=== PATIENT | female | born 1955 | race Caucasian/White ===

== ENCOUNTER 2020-03-15 12:34 | Outpatient (RCR) | payer MEDICARE, MEDICAID, SELFPAY ==
--- NOTE | 2020-03-15 14:13 | PTOPEVAL ---
PHYSICAL THERAPY EVALUATION Thank you for referring Juanis Jim to [facility]. She was seen this date for her dizziness. She had a + L Arti Hallpike test which corrected well with L Eply manuever. Handouts were given for next 24 hour precautions as well as self correction L Eply manuever. Will follow up via phone next week to see how she is doing. If further treatment is needed, will formulate a Plan of Care - which would be forwarded to you. I agree with Payton's evaluation as well as about outlined followup.. Referring Physician Date Admitting Provider: Attending Provider: Analy Higgins NP Referring Provider: *PT Outpatient Evaluation Start: 03/15/20 13:08 Freq: Status: Active Protocol: Document 03/15/20 13:00 BARBARA (Rec: 03/15/20 14:13 BARBARA [id number]) Therapy Assessment Status Assessment Status Assessment Status Evaluation Outpatient Past Medical History Past Medical History Source of Past Medical History Patient Neurological History Hx Neurological Disorders No Significant History Cardiovascular History Hx Cardiac Disorders No Significant History Respiratory History Hx Chronic Obstructive Pulmonary Disease Yes: home 02 2-3L (COPD) Hx Sleep Apnea Yes: TRILOGY VENTILATOR @ WITH 2L O2 BLEED IN Hx Other Respiratory Disorders Yes: ELEVATED CO2 Gastrointestinal History Hx Cholecystectomy Yes Hx Other Gastrointestinal Disorders Yes: CONSTIPATION X 7 WEEKS, NAUSEA Genitourinary History Hx Other Genitourinary Disorders Yes: BLADDER TIE UP Musculoskeletal History Hx Fractures Yes: R hallux, R 5th metacarpal Hematological History Hx Hematological Disorders No Significant History Endocrine History Hx Other Endocrine Disorders Yes: SPOT ON THYROID HEENT History Hx HEENT Disorders No Significant History Integumentary History Hx Shingles Yes Reproductive History Hx Reproductive Disorders No Significant History Psychosocial History Hx Anxiety Yes Pain History History of Any Previous or Ongoing No Significant History Instance of Pain Anesthesia History Hx Anesthesia Reactions No Significant History Evaluation Information Problem Diagnosis dizziness and giddiness Onset middle to end of January Additional Evaluation Detail previous episode ~ 4 years ago Subjective Information Washing hair in sink, at times Query Text:As Reported By Patient/ she feels likes she has water Family in her ear - this time didn't go away. Rolling over in bed (usually from L side to R side) will have the dizziness
--- NOTE | 2020-03-22 17:08 | PCPTNOTE ---
Follow up phone call made, Payton continues to no longer have any dizziness. Will d/c chart at this time.
== END 2020-06-13 23:59 | disposition home or self-care (01) ==
LOC: ANHPT 12:34
PROVIDERS: PCP Internal Medicine; Visit Provider Nurse Practitioner
DX: R42 Dizziness and giddiness (principal)
CPT/HCPCS: 97161

== ENCOUNTER 2020-06-21 10:07 | Outpatient (CLI) | payer MEDICARE, MEDICAID, SELFPAY ==
--- NOTE | ~2020-06-21 | CT_ITS ---
EXAMINATION: CT lung screening DATE: 06/21/2020 10:31 INDICATION: Personal history of tobacco dependence, tobacco use, prior smoker with 30 pack year histo ry TECHNIQUE: Computed tomography (CT) of the chest was performed without intravenous contrast. The dose -length product (DLP) was 56.31 mGy-cm. Automated exposure control and iterative reconstruction techn [place] were employed. COMPARISON: 10/14/2018 FINDINGS: There is moderate emphysema. There is a stable 4 mm nodule of the right upper lobe on image 39. There is a 4 mm nodule of the right lower lobe on image 59. The lungs are free of focal airspace opacities. There is no pleural effusion or pneumothorax. No pathologically enlarged thoracic lymph n odes are identified. The heart size is normal. . There is mild thoracic spondylosis. IMPRESSION: 1. Lung-RADS category 2: Benign appearance or behavior. Continue annual screening with noncontrast lo w-dose chest CT in 12 months. Reviewed, dictated and finalized at location B. IMPRESSION: 1. Lung-RADS category 2: Benign appearance or behavior. Continue annual screeni ng with noncontrast low-dose chest CT in 12 months.
[2020-06-21 11:18] LABS: Hemoglobin A1C 5.3 % (<5.7)
== END 2020-06-21 10:08 | disposition home or self-care (01) ==
PROVIDERS: PCP Internal Medicine; Visit Provider Internal Medicine Critical Care Medicine
DX: Z12.2 Encounter for screening for malignant neoplasm of respiratory organs (principal); Z87.891 Personal history of nicotine dependence; R73.9 Hyperglycemia, unspecified
CPT/HCPCS: 36415; 83036; G0297

== ENCOUNTER 2020-12-22 11:34 | Emergency (ER) | payer MEDICARE, MEDICAID, SELFPAY ==
[2020-12-22] VITALS (19 sets, daily range): BP systolic 127–135; BP diastolic 74–87; PULSE 93–113; RESP 12–28; TEMP 36.6; O2SAT 94–100
--- NOTE | ~2020-12-22 | XR_ITS ---
EXAMINATION: XR chest 1V portable DATE: 12/22/2020 12:26 INDICATION: COPD presenting with shortness of breath TECHNIQUE: frontal view of the chest was obtained. COMPARISON: Chest radiograph dated 09/03/[address] dated 06/21/2020 FINDINGS: Hyperexpansion of lungs with flattening of the diaphragm and increased lucency and architectural dist ortion with lower lung predominance consistent with moderate emphysema but appreciated on prior CT . No focal airspace opacities, pulmonary edema, pleural effusion or pneumothorax. The cardiomediastinal silhouette is normal. Cholecystectomy clips in the upper abdomen. IMPRESSION: 1. Emphysema. No acute cardiopulmonary disease. Reviewed, dictated and finalized at location B. D WASTE COLLECTOR
--- NOTE | ~2020-12-22 | CT_ITS ---
EXAMINATION: CT brain wo con DATE: 12/22/2020 14:30 INDICATION: Headache and dizziness TECHNIQUE: Computed tomography (CT) of the head was performed without intravenous contrast. Sagittal and coronal reconstructions were performed. The mA was adjusted according to patient size. Iterative reconstruction technique was employed. The dose-length product was 605.33 mGy-cm. COMPARISON: None FINDINGS: No acute intracranial hemorrhage, acute infarction or abnormal extra axial fluid collection. There is mild scattered white matter hypoattenuation consistent with chronic small vessel ischemic disease. Ventricles are normal and symmetric. No mass/mass effect. Changes of left intraocular lens replacemen t. The orbits, paranasal sinuses and mastoid air cells are normal. IMPRESSION: 1. No acute intracranial process. 2. Mild scattered white matter hypoattenuation consistent with chronic small vessel ischemic disease. Reviewed, dictated and finalized at location B. ING SUPERVISOR IMPRESSION: 1. No acute intracranial process. 2. Mild scattered white matter hypoattenuation consistent with chronic small ve ssel ischemic disease.
--- NOTE | 2020-12-22 11:38 | ECG_ITS ---
Measurements Intervals [place] Rate: 103 P: 76 [place]: 128 QRS: 47 QRSD: 89 T: 44 QT: 343 QTc: 449 Interpretive Statements SINUS TACHYCARDIA INCOMPLETE RIGHT BUNDLE BRANCH BLOCK BASELINE ARTIFACT- I, II, III, AVR, AVL, AVF, V1-V6 BORDERLINE ECG Electronically Signed On 12-22-2020 12:41:34 VETERINARY TECHNICIAN by Joe Linares D.O.
[2020-12-22 12:04] LABS: Basophils Absolute Auto 0.1 K/mm3 (0.0-0.1); Basophils Percent Auto 0.5 % (0.2-1.2); Eosinophils Absolute Auto 0.2 K/mm3 (0-0.3); Eosinophils Percent Auto 2.2 % (0-4.4); Hemoglobin 12.7 g/dL (12.0-15.0); Immature Granulocyte Absolute 0.02 K/mm3 (0.00-0.031); Immature Granulocyte Percent A 0.2 % (0-0.5); Lymphocytes Absolute Auto 1.79 K/mm3 (0.9-3.2); Lymphocytes Percent Auto 19.5 % (18.3-44.2); Mean Corpuscular HGB Conc 33.4 g/dl (32-36); Mean Corpuscular Hemoglobin 31.6 pg (26-34); Mean Corpuscular Volume 94.5 fl (80-100); Mean Platelet Volume 8.8 fl (7.4-10.4); Monocytes Absolute Auto 0.9 K/mm3 (0.1-0.6); Monocytes Percent Auto 9.8 % (2.6-8.5); Neutrophils Absolute Auto 6.2 K/mm3 (1.3-6.7); Neutrophils Percent Auto 67.8 % (45.5-73.1); Platelet Count Result 264 k/mm3 (150-375); Red Blood Count 4.02 M/mm3 (4.2-5.4); Red Cell Distribution Width 11.7 % (11.5-14.5); White Blood Count 9.2 K/mm3 (4.5-10.0)
[2020-12-22] MEDS: ONDANSETRON INJ 4 MG/2 ML VIAL IV PUSH (12:05)
[2020-12-22 12:16] LABS: Anion Gap 3 mmol/L (8-16); Blood Urea Nitrogen 24 mg/dL (7-17); Carbon Dioxide 34 mmol/L (22-30); Chloride 96 mmol/L (98-107); Estimated CRCL calculation 47 ml/min; Estimated Glomerular Filt Rate > 60; Glucose 103 mg/dL (65-105); Potassium 4.4 mmol/L (3.4-5.0); Sodium 133 mmol/L (137-145)
[2020-12-22] MEDS: MECLIZINE HCL 25 MG TABLET PO (12:45)
--- NOTE | 2020-12-22 12:58 | ED.SOB ---
HPI - SOB/Dyspnea General Chief Complaint: Shortness of Breath/Dyspnea Stated Complaint: SOB Time Seen by Provider: 12/22/20 11:40 History of Present Illness HPI Narrative: Patient is a 65-year-old female who presents ER with nausea and vomiting. No stomach pain but does feel dizzy in her stomach. . Patient reports symptoms worsen if she lays back. Patient wears 2 L nasal cannula baseline for her COPD. No chest pain/chest pressure. No new shortness of breath or productive cough. Has not had similar symptoms previously. Patient also reports she has been having headache for the last 3 days. No trauma. No focal weakness in arm or leg. Related Data Home Medications Medication Instructions Recorded Confirmed Vitamin D3 2,000 mg PO DAILY 10/13/19 12/22/20 diphenhydramine-acetaminophen 1 tablet PO HS PRN 10/13/19 12/22/20 [Tylenol PM Extra Strength] mecobalamin (vitamin B12) 1,000 mcg PO DAILY 10/13/19 12/22/20 Allergies Allergy/AdvReac Type Severity Reaction Status Date / Time Iodinated Contrast Media Allergy Severe RASH AND Verified 12/14/20 10:59 SEVERE ITCHING aspirin AdvReac Intermediate Abdominal Verified 09/20/20 10:31 Pain Review of Systems Review of Systems: All systems reviewed & are unremarkable except as noted in HPI and below Constitutional: Constitutional: Denies chills, Denies fever(s) and Reports weakness ENT: Denies nasal congestion Cardiovascular: Cardiovascular: Denies chest pain, Denies rapid heart rate and Denies radiating jaw, neck or arm pain Respiratory: Respiratory: Denies cough, Denies dyspnea and Denies wheezing Gastrointestinal: Gastrointestinal: Denies abdominal pain, Denies diarrhea, Reports nausea and Denies vomiting Neurologic: Reports dizziness, Denies syncope, Reports headache(s), Denies focal weakness and Denies numbness [facility] Past Medical History Medical History (Updated 12/22/20 @ 15:19 by Viktor Mcdaniels MD) Alternating constipation and diarrhea Anemia Anxiety Chronic anemia COPD (chronic obstructive pulmonary disease) GERD (gastroesophageal reflux disease) Irritable bowel syndrome with constipation Metacarpal bone fracture Nausea Osteoporosis Tobacco abuse Vitamin B 12 deficiency Vitamin D deficiency Surgical History Surgical History History of bladder surgery History of breast surgery History of cholecystectomy Family History Family History Father Family history of cardiovascular disease Acute myocardial infarction Hypertension Family history of type 2 diabetes mellitus Mother Hypertension Family history of thyroid disease Family history of multiple sclerosis Other Arthritis Diabetes mellitus Heart disease Neuropathy Skin cancer Social History Social History Smoking status: Former smoker Tobacco type: cigarettes Second hand tobacco smoke exposure: No Smoking end date: 11/25/13 Alcohol intake: current Substance use: unknown Gender identity (if verbalized by the patient): Female Spiritual care concerns: No Exam Narrative: Exam Narrative: GENERAL: Chronically ill-appearing, well-nourished, and in no acute distress. HEAD: Normocephalic, atraumatic. ENT: Mucous membranes moist. TMs normal. CHEST: Clear to auscultation. No respiratory distress. HEART: Tachycardic and regular. Normal peripheral pulses. ABDOMEN: Soft, nontender, nondistended. EXTREMITIES: Normal range of motion. No edema. SKIN: Warm, dry, no rash. NEURO: Alert and oriented x3. Course Course Emergency Course: Patient has received antiemetics as well as meclizine. Nausea is improved and she has been able to ambulate without issue. Lab work without leukocytosis or left shift. Renal function normal. Patient hydrated as BUN is slightly elevated. CT of the head and josiah
[2020-12-22] MEDS: KETOROLAC 15 MG/ML VIAL (*BKC) IV PUSH (13:45)
== END 2020-12-22 15:39 | disposition home or self-care (01) ==
PROVIDERS: Emergency Provider Emergency Medicine; PCP Internal Medicine
DX: R42 Dizziness and giddiness (principal); R51.9 Headache, unspecified; J43.9 Emphysema, unspecified; D64.9 Anemia, unspecified; K21.9 Gastro-esophageal reflux disease without esophagitis; K58.1 Irritable bowel syndrome with constipation; M81.0 Age-related osteoporosis without current pathological fracture; E53.8 Deficiency of other specified B group vitamins; E55.9 Vitamin D deficiency, unspecified; Z87.891 Personal history of nicotine dependence; R00.0 Tachycardia, unspecified; I45.10 Unspecified right bundle-branch block; Z99.81 Dependence on supplemental oxygen
CPT/HCPCS: 36415; 70450; 71045; 80048; 85025; 93005; 96374; 96375; 99284; A9270; J1885; J2405

== ENCOUNTER 2021-07-17 11:00 | Outpatient (RCR) | payer MEDICARE, MEDICAID, SELFPAY ==
--- NOTE | 2021-05-19 16:50 | PTOPEVAL ---
PHYSICAL THERAPY EVALUATION Thank you for referring Juanis Jim to [facility].? Aide was evaluated for the dx of left shoulder pain/impingement. The patient is scheduled to be seen for therapy? 2 x/week for 4 weeks. Please review, sign, date and return this plan of care RICHMOND. I agree with and certify that the following plan of care is medically necessary. Referring Physician Date Attending Provider: Jada Castellano NP *PT Outpatient Evaluation Start: 05/19/21 12:41 Freq: Status: Active Protocol: Document 05/19/21 12:41 [facility] (Rec: 05/19/21 13:30 [facility] [id number]) Therapy Assessment Status Assessment Status Assessment Status Evaluation Evaluation Information Problem Diagnosis left shoulder impingement Onset 2 months ago Cause no injury Additional Evaluation Detail Patient reports having shoulder pain for 2 months, felt like she slept wrong but the pain didn't go away. The shoulder got worse and began having trouble lifting her arm. The patient sleeps left side due to breathing issues/ ventilator. The patient has been on O2 since 2013. The patient is I and likes to do yardwork, and does her housework. The patient is right hand dominant. Subjective Information The patient has limited and Query Text:As Reported By Patient/ modified ability for self care Family /combing her hair, working in her yard since recent onset of pain. Previous Treatments Previous Treatments For This Problem none for shoulder Pain Assessment Timing of Pain Assessment Timing of Pain Assessment Assessment Pain Scale Pain Scale Used Numeric (1 - 10) Self Report Pain Assessment Left Shoulder(s) Reported Pain Level 6 Pain Description Aching,Sharp Other Pain Description sharp pian with reach and with pressure Greatest Pain Intensity 10 Pain Aggravating Factors Exercise/Activity,Lifting, Palpation Pain Behaviors Guarding Pain Score Pain Score 6: Self Report Interventions Used Interventions Used By Clinicians Education,Electrical Stimulation,Heat Pain Relief Interventions Used By Inactivity/Rest Patient Upper Extremity Range of Motion Gene
--- NOTE | 2021-06-13 15:20 | PCPTNOTE ---
Patient called & cancelled scheduled appointment this date due to difficulty breathing.
--- NOTE | 2021-06-19 17:00 | PTOPEVAL ---
PHYSICAL THERAPY RE-EVALUATION Thank you for referring Juanis Jim to [facility].? Juanis was reassessed this date for the dx of left shoulder impingement. Goals are partially met. The patient is scheduled to be seen for therapy? 2 x/week for 4 more weeks. Please review, sign, date and return this plan of care RICHMOND. I agree with and certify that the following plan of care is medically necessary. Referring Physician Date Attending Provider: Jada Castellano NP *PT Outpatient Re-evaluation Start: 05/19/21 12:41 Freq: Status: Active Protocol: Document 06/19/21 12:26 MLV (Rec: 06/19/21 13:24 MLV [id number]) Therapy Assessment Status Assessment Status Assessment Status Progress Evaluation Information Problem Diagnosis left shoulder impingement Cause no injury Additional Evaluation Detail Patient reports improved ability to reach in front on a wall/closet. The patient can do better with her self care- applying deodorant and doing her hair. The patient reaches behind her back better for getting dressed. The pt. reports continued pain at the shoulder has declined overall and feels the therapy is helping get her better. Patient reports most intense pain is when reaching to opposite shoulder with pain occurring at the deltoid area (not the AC jt). Pain Assessment Timing of Pain Assessment Timing of Pain Assessment Assessment Pain Scale Pain Scale Used Numeric (1 - 10) Self Report Pain Assessment Left Shoulder(s) Reported Pain Level 0 Other Pain Description 5 with extensive reach activities; less frequent Pain Score Pain Score 0: Self Report Interventions Used Interventions Used By Clinicians Education,Exercise,Heat, Mobilization,Manual Therapy Techniques Pain Relief Interventions Used By Exercise,Heat,Inactivity/Rest, Patient Position Change Upper Extremity Range of Motion General Upper Extremity Range of Motion Gross Upper Extremity Range of Motion shoulder ROM; right flexion Comments 137', abduction 137', extension 78', ER 69', IR 61 left flexion 105', abduction 72', extension 73', ER 58',
--- NOTE | 2021-07-17 11:43 | PTOPEVAL ---
PHYSICAL THERAPY DISCHARGE Thank you for referring Juanis Jim to [facility].? The patient has completed her PT for the dx of left shoulder impingement with her most of her goals met. DC PT. Please review, sign, date and return this plan of care RICHMOND. I agree with and certify the following plan of care. Referring Physician Date Attending Provider: Jada Castellano NP *PT Outpatient Discharge Start: 05/19/21 12:41 Freq: Status: Active Protocol: Document 07/17/21 10:54 MLV (Rec: 07/17/21 11:30 MLV [id number]) Therapy Assessment Status Assessment Status Assessment Status Discharge Evaluation Information Problem Diagnosis left shoulder impingement Cause no injury Additional Evaluation Detail The patient reports using her heat and doing her exercises; reports the heat really helps. The patient reports about 80% improvement of use and decreased pain. The patient can reach better to do her hair and reach but still has minimal limit. The patient is also able to reach behind her back much better. The pt does not have a follow up with MD and is going to wait and see how far she can improve her arm on her own. Pain Assessment Timing of Pain Assessment Timing of Pain Assessment Assessment Pain Scale Pain Scale Used Numeric (1 - 10) Self Report Pain Assessment Left Shoulder(s) Reported Pain Level 0 Pain Frequency Acute,Chronic Other Pain Description 7 with activity but relieves as soon as she stops mvmt Pain Aggravating Factors Lifting Pain Behaviors None Pain Score Pain Score 0: Self Report Interventions Used Interventions Used By Clinicians Electrical Stimulation,Heat, Manual Therapy Techniques Pain Relief Interventions Used By Heat,Inactivity/Rest,Position Patient Change Upper Extremity Range of Motion General Upper Extremity Range of Motion Gross Upper Extremity Range of Motion shoulder ROM; right flexion Comments 137', abduction 137', extension 78', ER 69', IR 61 left flexion 112', abduction 78', extension 74', ER 76', IR 81' passive left arm elevation 98'
== END 2021-08-07 13:05 | disposition home or self-care (01) ==
LOC: ANHPT 11:00
PROVIDERS: PCP Internal Medicine; Visit Provider Nurse Practitioner
DX: M75.42 Impingement syndrome of left shoulder (principal)
CPT/HCPCS: 97014; 97110; 97140; 97162; G0283

== ENCOUNTER 2021-07-18 13:04 | Outpatient (CLI) | payer MEDICARE, MEDICAID, SELFPAY ==
--- NOTE | ~2021-07-18 | CT_ITS ---
EXAMINATION:CT lung screening DATE: 07/18/2021 13:43 INDICATION: Personal history of tobacco dependence. Smoker who quit 7 years ago with 30 pack year his tory. TECHNIQUE: Computed tomography (CT) of the chest was performed without intravenous contrast. Automate d exposure control and iterative reconstruction technique were employed. The dose-length product (DLP ) was 63.56 mGy-cm. COMPARISON: Chest CT 06/21/2020 FINDINGS: There is mild scarring in the lung apices and superior segment left lower lobe. There is mo derate emphysema. There is mild atelectasis bilaterally. There is a 2 mm nodule in right upper lobe. There are bilateral posterior diaphragmatic hernias containing fat. No pleural effusion. There is 11 mm nodule in right thyroid lobe, likely not clinically significant. The heart size is normal. No krysten cardial effusion. There are changes of cholecystectomy. There is severe cervical spondylosis and mild thoracic spondylosis. IMPRESSION: 1. Lung-RADS category 2: Benign appearance or behavior. Continue annual screening with noncontrast lo w-dose chest CT in 12 months. Reviewed, dictated and finalized at location A. IMPRESSION: 1. Lung-RADS category 2: Benign appearance or behavior. Continue annual screeni ng with noncontrast low-dose chest CT in 12 months.
== END 2021-07-18 13:05 | disposition home or self-care (01) ==
PROVIDERS: PCP Internal Medicine; Visit Provider Nurse Practitioner Family
DX: Z12.2 Encounter for screening for malignant neoplasm of respiratory organs (principal); Z87.891 Personal history of nicotine dependence
CPT/HCPCS: 71271

== ENCOUNTER 2021-09-08 13:25 | Observation (INO) | payer MEDICARE, MEDICAID, SELFPAY ==
[2021-09-08] VITALS (11 sets, daily range): BP systolic 117–137; BP diastolic 62–87; PULSE 74–102; RESP 12–24; TEMP 35.9–37.9; O2SAT 94–100; BMI 18.0
--- NOTE | ~2021-09-08 | CT_ITS ---
EXAMINATION: CTA chest PE protocol DATE: 09/10/2021 09:10 CDT INDICATION: Chest and left shoulder pain TECHNIQUE: Computed tomographic angiography (CTA) of the chest was performed with 100 mL Omnipaque-35 0 intravenous contrast. The dose-length product was 155.88 mGy-cm. Maximum intensity projection 3D-re constructions of the aorta and other arteries were constructed by the technologist on a separate work station. Automated exposure control and iterative reconstruction technique were employed. COMPARISON: CT dated 07/18/2021. FINDINGS: Dilated pulmonary arteries. Study is technically adequate without evidence for pulmonary em bolism. No significant pleural or pericardial effusion. Heart size normal. No thoracic lymphadenopath y. The upper abdomen is unremarkable. There is moderate emphysema. There is apical pleural thickening /scarring. No focal airspace consolidation. No pneumothorax. No endobronchial lesions. There is thora cic spondylosis. Bilateral posterior diaphragmatic hernias containing fat. IMPRESSION: 1. No acute cardiopulmonary disease. No evidence for pulmonary embolism. 2: Enlarged pulmonary arteries, consistent with pulmonary hypertension. 3: Emphysema. Reviewed, dictated and finalized at location A.
--- NOTE | ~2021-09-08 | CT_ITS ---
EXAMINATION: CT shoulder LT wo con DATE: 09/10/2021 08:54 INDICATION: Left shoulder pain. TECHNIQUE: Computed tomography (CT) of the left shoulder was performed without intravenous contrast. Automated exposure control and iterative reconstruction technique were employed. The dose-length prod uct was 85.50 mGy-cm. COMPARISON: None FINDINGS: Bone alignment is normal. No fracture. There is mild osteoarthritis of glenohumeral joint a nd severe osteoarthritis of acromioclavicular joint. There is no asymmetric fatty atrophy of the rota tor cuff muscle bellies. IMPRESSION: 1. Polyarticular osteoarthritis. Reviewed, dictated and finalized at location A.
--- NOTE | ~2021-09-08 | XR_ITS ---
EXAMINATION: XR chest 2V EXAM DATE: 09/08/2021 14:02 INDICATION: Shortness of breath and chest pain. COPD exacerbation. TECHNIQUE: Frontal and lateral projections of the chest obtained and reviewed. Comparison is made to prior examination from 12/22/2020. FINDINGS: The lungs are hyperinflated which can be seen with chronic obstructive pulmonary disease ( a clinical diagnosis of functional impairment), but is not diagnostic of it. The lungs are clear. T here are no pleural effusions. The cardiomediastinal silhouette is within normal limits. There is n o pneumothorax suspected. The bones and soft tissues are unremarkable. IMPRESSION: Severe hyperinflation. Reviewed, dictated and finalized at location B. IMPRESSION: Severe hyperinflation.
--- NOTE | ~2021-09-08 | CT_ITS ---
EXAMINATION: CT cervical spine wo con DATE: 09/10/2021 08:54 INDICATION: Neck pain TECHNIQUE: Computed tomography (CT) of the cervical spine was performed without intravenous contrast. The dose-length product was 89 mGy-cm. Automated exposure control and iterative reconstruction techn ique were employed. COMPARISON: None FINDINGS: Straightening of cervical lordosis. There is degenerative anterolisthesis at C2-3, C3-4 and C4-5 with retrolisthesis at C5-6. There is disc narrowing and endplate degenerative changes at C5-6 and C6-7. There is mild-moderate multilevel uncinate and facet hypertrophy. There is carotid atherosc lerosis. No acute fracture or traumatic malalignment. Odontoid process within normal limits. No signi ficant paraspinal soft tissue abnormality. No evidence for perched facet. IMPRESSION: 1. Moderate-severe cervical spondylosis. Reviewed, dictated and finalized at location A.
--- NOTE | ~2021-09-08 | NM_ITS ---
EXAMINATION: NM nemo stress w perfusion DATE: 09/11/2021 14:55 INDICATION: Atypical chest pain. TECHNIQUE: Rest images were obtained following intravenous administration of 9.4 mCi Tc99m tetrofosmi n (Myoview). The patient was infused intravenously with Lexiscan (regadenoson). Then, 29.4 mCi Tc99m tetrofosmin (Myoview) was administered intravenously, and stress images were obtained. Data was recon structed into short axis and horizontal and vertical long axis SPECT images. Gated SPECT images were also obtained. COMPARISON: Chest CT 09/10/2021 FINDINGS: There is no definite reversible or fixed perfusion abnormality to suggest ischemia or infar ction. There is no segmental wall motion abnormality. Left ventricular ejection fraction measures > 70%. IMPRESSION: 1. No definite ischemia or infarct. 2. Normal left ventricular ejection fraction measuring >70%. Reviewed, dictated and finalized at location A.
--- NOTE | ~2021-09-08 | NM_ITS ---
EXAMINATION: NM pulmonary perfusion DATE: 09/08/2021 15:06 INDICATION: Chest pain and shortness of breath. TECHNIQUE: 4.1 mCi Tc-99m MAA was administered intravenously for perfusion images. Scintigraphic yuki ges of the chest were obtained. COMPARISON: Chest 2 views 09/08/2021, ventilation perfusion scintigraphy 11/28/2016, chest CT 07/18/21 FINDINGS: Perfusion images show large defects in left upper lobe and left lower lobe and right lower lobe with stripe sign. There is a moderate-sized defect in right upper lobe. These findings are similar to that seen on the prior scintigraphy and correlate with severe emphysema by radiographs and CT. IMPRESSION: 1. Nondiagnostic (intermediate probability for pulmonary embolism). Reviewed, dictated and finalized at location A.
--- NOTE | ~2021-09-08 | US_ITS ---
EXAMINATION: US venous doppler [facility] EXAM DATE: 09/08/2021 15:59 INDICATION: Bilateral calf pain. TECHNIQUE: Multiple grayscale, color flow and Doppler images of the lower extremity deep venous syste ms bilaterally were obtained and reviewed. Comparison is made to prior examination from 10/14/2018. FINDINGS: Right side: The right common femoral, femoral and profunda veins demonstrate normal color flow, respi ratory variation, augmentation and compressibility. Compressibility, color flow confirmed within the right popliteal, posterior tibial, peroneal, and greater saphenous veins. Left side: The left common femoral, femoral and profunda veins demonstrate normal color flow, respira tory variation, augmentation and compressibility. Compressibility, color flow confirmed within the l eft popliteal, posterior tibial, peroneal, and greater saphenous veins. IMPRESSION: No lower extremity deep venous thrombosis bilaterally. Reviewed, dictated and finalized at location B.
--- NOTE | 2021-09-08 13:29 | ECG_ITS ---
Measurements Intervals [place] Rate: 97 P: 77 NE: 132 QRS: 65 QRSD: 87 T: 52 QT: 347 QTc: 441 Interpretive Statements SINUS RHYTHM INCOMPLETE RIGHT BUNDLE BRANCH BLOCK BASELINE ARTIFACT- I, II, III, AVR, AVL, AVF, V1-V6 BORDERLINE ECG Electronically Signed On 09-08-2021 14:11:51 CDT by Joe Linares D.O.
[2021-09-08 13:57] LABS: Basophils Absolute Auto 0.1 K/mm3 (0.0-0.1); Basophils Percent Auto 0.6 % (0.2-1.2); Eosinophils Absolute Auto 0.2 K/mm3 (0-0.3); Eosinophils Percent Auto 2.7 % (0-4.4); Hematocrit 40.7 % (37.0-47.0); Hemoglobin 13.2 g/dL (12.0-15.0); Immature Granulocyte Absolute 0.02 K/mm3 (0.00-0.031); Immature Granulocyte Percent A 0.3 % (0-0.5); Lymphocytes Absolute Auto 2.45 K/mm3 (0.9-3.2); Lymphocytes Percent Auto 30.9 % (18.3-44.2); Mean Corpuscular HGB Conc 32.4 g/dl (32-36); Mean Corpuscular Hemoglobin 31.7 pg (26-34); Mean Corpuscular Volume 97.6 fl (80-100); Mean Platelet Volume 9.1 fl (7.4-10.4); Monocytes Absolute Auto 0.8 K/mm3 (0.1-0.6); Monocytes Percent Auto 10.6 % (2.6-8.5); Neutrophils Absolute Auto 4.4 K/mm3 (1.3-6.7); Neutrophils Percent Auto 54.9 % (45.5-73.1); Platelet Count Result 255 k/mm3 (150-375); Red Blood Count 4.17 M/mm3 (4.2-5.4); Red Cell Distribution Width 12.3 % (11.5-14.5); White Blood Count 7.9 K/mm3 (4.5-10.0)
[2021-09-08 14:05] LABS: INR 0.9; Prothrombin Time 12.5 Seconds (11.1-14.7)
[2021-09-08 14:06] LABS: Partial Thromboplastin Time 26.8 SECONDS (22.3-36.8)
[2021-09-08 14:33] LABS: Anion Gap 5 mmol/L (8-16); Blood Urea Nitrogen 17 mg/dL (7-17); Calcium 9.3 mg/dL (8.4-10.2); Carbon Dioxide 38 mmol/L (22-30); Chloride 99 mmol/L (98-107); Estimated CRCL calculation 48 ml/min; Estimated Glomerular Filt Rate > 60; Glucose 101 mg/dL (65-110); Potassium 3.7 mmol/L (3.4-5.0); Sodium 142 mmol/L (137-145)
--- NOTE | 2021-09-08 14:36 | ED.CHESTPAIN ---
HPI - Chest Pain General Chief Complaint: Chest Pain Stated Complaint: SOB, CP Time Seen by Provider: 09/08/21 14:22 Source: RN notes reviewed History of Present Illness HPI narrative: Patient presents emergency department from home for chest pain. Patient states that for the past 2 weeks she has had constant pain in her left upper back that goes through into her left upper chest the pain is described as sharp and stabbing and is worse with deep inspiration she denies any trauma or injury to the area she states she was seen by her PCP today and was recommended come to the ER for further evaluation. Patient states she has COPD and is normally on 2 L nasal cannula but does have increased to 3 L nasal cannula as she feels like she has a hard time taking a deep breath she denies any fevers or chills abdominal pain nausea vomiting or any other symptoms of concern Related Data Home Medications Medication Instructions Recorded Confirmed Vitamin D3 2,000 mg PO DAILY 10/13/19 09/08/21 diphenhydramine-acetaminophen 1 tablet PO HS PRN 10/13/19 09/08/21 [Tylenol PM Extra Strength] mecobalamin (vitamin B12) 1,000 mcg PO DAILY 10/13/19 09/08/21 Allergies Allergy/AdvReac Type Severity Reaction Status Date / Time Iodinated Contrast Media Allergy Severe RASH AND Verified 05/01/21 10:29 SEVERE ITCHING aspirin AdvReac Intermediate Abdominal Verified 05/01/21 10:29 Pain Review of Systems Review of Systems: Gen.: Denies fevers or chills ENT: Denies congestion Respiratory: Ports shortness of CV: Reports chest pain GI: Denies abdominal pain nausea, emesis or diarrhea Musculoskeletal: Denies back pain or muscle pain Neuro: Denies numbness, tingling, weakness or focal weakness Skin: Denies rash Except as documented, all other systems reviewed and negative [facility] Past Medical History Medical History (Updated 09/08/21 @ 15:53 by Chilango Read DO) Alternating constipation and diarrhea Anemia Anxiety Chronic anemia COPD (chronic obstructive pulmonary disease) GERD (gastroesophageal reflux disease) Irritable bowel syndrome with constipation Metacarpal bone fracture Nausea Osteoporosis Tobacco abuse Vitamin B 12 deficiency Vitamin D deficiency Surgical History Surgical History History of bladder surgery History of breast surgery History of cholecystectomy Family History Family History Father Family history of cardiovascular disease Acute myocardial infarction Hypertension Family history of type 2 diabetes mellitus Mother Hypertension Family history of thyroid disease Family history of multiple sclerosis Other Arthritis Diabetes mellitus Heart disease Neuropathy Skin cancer Social History Social History Smoking packs per day: 1 Smoking cigarettes per day: 20.0 Years smoked: 30 Smoking pack-years: 30.00 Smoking status: Former smoker Tobacco type: cigarettes Second hand tobacco smoke exposure: No Smoking end date: 11/25/13 Alcohol intake: current Substance use: unknown Gender identity (if verbalized by the patient): Female Spiritual care concerns: No Exam Narrative: APPEARANCE: No acute distress, nontoxic, resting in bed EYES: EOMI HEENT: Normocephalic, atraumatic, OMM RESPIRATORY: No respiratory distress Clear to auscultation bilaterally with no rhonchi wheezing or rales. CARDIOVASCULAR: Regular rate and rhythm without murmurs rubs or gallops. ABDOMINAL: Soft, nontender, nondistended, no rebound or guarding MUSCULOSKELETAl: Moves all extremities. No clubbing, cyanosis or edema. NEURO: Awake and alert. Following commands, speech normal, no focal deficits SKIN:: Warm, dry. No rashes lesions or abrasions PSYCHIATRIC: Normal affect/mood, Course Course Emergency Course: Patient allergic to contra
[2021-09-08 14:40] LABS: Troponin I < 0.012 ng/mL (0.000-0.034)
[2021-09-08] MEDS: ENOXAPARIN 80 MG/0.8 ML SYRINGE 45 MG SUB-Q (15:58)
[2021-09-08 16:37] LABS: D Dimer 0.37 ug/mL (<0.48)
[2021-09-08 18:14] LABS: Troponin I < 0.012 ng/mL (0.000-0.034)
--- NOTE | 2021-09-08 19:20 | PC.NURSE ---
Assumed care of pt at this time. Pt alert and upright on stretcher, requesting meal tray and pillow. Pt updated on POC.
[2021-09-08 19:53] LABS: Troponin I < 0.012 ng/mL (0.000-0.034)
--- NOTE | 2021-09-08 19:53 | PC.NURSE ---
Pt expressing concerns about wait time to get a room on floor. ED Charge Yakelin at bedside.
--- NOTE | 2021-09-08 21:40 | PM.IMHP ---
H&P: HPI History of Present Illness Date/Time: 09/08/21 21:40 Chief Complaint: Shoulder pain. Narrative: This is a 66-year-old female with past medical history significant for severe COPD/emphysema, 40 pack year smoking history, gastroesophageal reflux disease, on supplemental home O2 2 L by nasal cannula at rest and 3 L with activity she is on trilogy home vent at nighttime, osteoporosis. Patient presented to the emergency room due to pain with deep inspiration patient had called her primary care physician who advised her to come to the emergency room just to rule out a possible pulmonary embolism. Upon talking to the patient she states that she has shoulder pain and thinks that that is what is causing radiation to his back and foot and front of the chest does not feel short of breath denies any wheezing ,denies any cough ,no sputum production, no fevers no rigors no chills, no nausea no vomiting, has been in her usual state of health. Preliminary workup was significant for a D-dimer of 0.37 a V/Q scan was indeterminate. Patient has been placed in observation for further monitoring assessment management and evaluation. Review of Systems Review of Systems: Left shoulder pain with radiation to the anterior and posterior chest Constitutional: Constitutional: Denies chills, Denies fatigue, Denies fever(s), Denies lethargy, Denies malaise, Denies night sweats and Denies weakness Eyes: Eyes: Denies change in vision ENT: Reports system reviewed and no additional complaints, except as documented Cardiovascular: Cardiovascular: Reports no additional cardiovascular complaints Respiratory: Respiratory: Denies change in phlegm color, Denies cough, Denies excessive phlegm production and Denies wheezing Gastrointestinal: Gastrointestinal: Reports no additional gastrointestinal complaints Genitourinary: Genitourinary: Reports no additional female genitourinary complaints Musculoskeletal: Comments: Left shoulder pain Integumentary/Breasts: Skin/Breast: Reports system reviewed and no additional complaints, except as docu Neurologic: Reports system reviewed and no additional complaints, except as documented Psychiatric: Psychiatric: Reports no additional psychiatric complaints Endocrine: Endocrine: Reports no additional endocrine complaints Hematologic/Lymphatic: Hematologic/Lymphatic: Reports no additional hematologic/lymphatic complaints Allergic/Immunologic: Allergic/Immunologic: Reports no additional allergic/immunologic complaints PMFSH Past Medical History Medical History (Updated 09/09/21 @ 02:13 by Rinku Patterson MD) Alternating constipation and diarrhea Anemia Anxiety Chronic anemia COPD (chronic obstructive pulmonary disease) GERD (gastroesophageal reflux disease) Irritable bowel syndrome with constipation Metacarpal bone fracture Nausea Osteoporosis Tobacco abuse Vitamin B 12 deficiency Vitamin D deficiency Surgical History Surgical History History of bladder surgery History of breast surgery History of cholecystectomy Family History Family History Father Family history of cardiovascular disease Acute myocardial infarction Hypertension Family history of type 2 diabetes mellitus Mother Hypertension Family history of thyroid disease Family history of multiple sclerosis Other Arthritis Diabetes mellitus Heart disease Neuropathy Skin cancer Social History Social History Smoking packs per day: 1 Smoking cigarettes per day: 20.0 Years smoked: 45 Smoking pack-years: 45.00 Smoking status: Former smoker Tobacco type: cigarettes Second hand tobacco smoke exposure: Yes Smoking end date: 11/25/13 Alcohol intake: never Substance use: current Substance use type: marijuana Last use: over 1 month ago Gender identity
--- NOTE | 2021-09-08 21:55 | ADMGEN ---
This patient, Juanis Jim, was admitted to IMU Room 212-01. Patient/family oriented to hospital policies and general routines including ID bracelet, bed and alarms, visiting hours, pain management, procedures, bathroom and other care routines, personal items, smoking policy, room service/diet, and visiting hours. Information on how to activate the Rapid Response Team has been discussed. Patient/Family are encouraged to report perceived risks to care and to ask questions if they do not understand what they are told or what they should do.
[2021-09-08] MEDS: ACETAMINOPHEN 500 MG TABLET PO (23:16)
[2021-09-08] MEDS: diphenhydrAMINE HCl CAP 25 MG CAPSULE PO (23:16)
[2021-09-09] VITALS (15 sets, daily range): BP systolic 114–140; BP diastolic 65–78; PULSE 61–85; RESP 14–20; TEMP 36.2–36.8; O2SAT 96–100
[2021-09-09 05:22] LABS: Basophils Percent Auto 0.5 % (0.2-1.2); Eosinophils Absolute Auto 0.2 K/mm3 (0-0.3); Eosinophils Percent Auto 2.1 % (0-4.4); Hematocrit 37.1 % (37.0-47.0); Hemoglobin 12.3 g/dL (12.0-15.0); Immature Granulocyte Absolute 0.01 K/mm3 (0.00-0.031); Immature Granulocyte Percent A 0.1 % (0-0.5); Mean Corpuscular HGB Conc 33.2 g/dl (32-36); Mean Corpuscular Hemoglobin 31.9 pg (26-34); Mean Corpuscular Volume 96.4 fl (80-100); Monocytes Absolute Auto 0.8 K/mm3 (0.1-0.6); Monocytes Percent Auto 9.9 % (2.6-8.5); Neutrophils Absolute Auto 4.7 K/mm3 (1.3-6.7); Neutrophils Percent Auto 62.4 % (45.5-73.1); Platelet Count Result 230 k/mm3 (150-375); Red Blood Count 3.85 M/mm3 (4.2-5.4); White Blood Count 7.6 K/mm3 (4.5-10.0)
[2021-09-09 05:38] LABS: Alanine Aminotransferase 13 U/L (4-35); Alkaline Phosphatase 34 U/L (38-126); Anion Gap 4 mmol/L (8-16); Aspartate Amino Transferase 20 U/L (14-36); Bilirubin,Total 0.5 mg/dL (0.2-1.3); Blood Urea Nitrogen 17 mg/dL (7-17); Carbon Dioxide 35 mmol/L (22-30); Chloride 99 mmol/L (98-107); Estimated CRCL calculation 47 ml/min; Estimated Glomerular Filt Rate > 60; Glucose 95 mg/dL (65-110); Potassium 4.1 mmol/L (3.4-5.0); Sodium 138 mmol/L (137-145)
--- NOTE | 2021-09-09 08:36 | PM.IMPN ---
Progress Note: A&P Assessment and Plan (1) Chest pain: Code(s): R07.9 - Chest pain, unspecified Status: Acute Assessment and Plan: Likely secondary to left frozen shoulder Patient he is undergoing therapy Pain management Tylenol as needed Will get CT shoulder for further evaluation (2) Suspected pulmonary embolism: Code(s): R09.89 - Other specified symptoms and signs involving the circulatory and respiratory systems Status: Acute Assessment and Plan: Indeterminate V/Q scan However D-dimer normal Doubtful of acute pulmonary embolism She had had CTAs in the past without any problem however 1 episode some rash. Will do pre treatment precautionary and performed CTA to rule a PE (3) Chronic respiratory failure with hypoxia, on home O2 therapy: Code(s): J96.11 - Chronic respiratory failure with hypoxia; Z99.81 - Dependence on supplemental oxygen Status: Acute Assessment and Plan: Continue supplemental oxygen 2 L at rest and 3 L with activity On trilogy home vent at nighttime (4) Impingement syndrome of left shoulder region: Code(s): M75.42 - Impingement syndrome of left shoulder Status: Acute Assessment and Plan: Follow-up in outpatient setting CT shoulder and 60 neck as ordered (5) GERD (gastroesophageal reflux disease): Qualifiers: Esophagitis presence: esophagitis presence not specified Qualified Code(s): K21.9 - Gastro-esophageal reflux disease without esophagitis Code(s): K21.9 - Gastro-esophageal reflux disease without esophagitis Status: Acute Assessment and Plan: PPI as needed (6) COPD, severe: Code(s): J44.9 - Chronic obstructive pulmonary disease, unspecified Status: Acute Assessment and Plan: Continue home meds Continue to monitor Feel some of these symptoms related to COPD exacerbation. Will continue steroid prior than her usual home doses (7) COPD exacerbation: Code(s): J44.1 - Chronic obstructive pulmonary disease with (acute) exacerbation Status: Acute Assessment and Plan: Steroid Bronchodilators as ordered Subjective Date/time seen: 09/09/21 08:36 Interval history: HPI: This is a 66-year-old female with past medical history significant for severe COPD/emphysema, 40 pack year smoking history, gastroesophageal reflux disease, on supplemental home O2 2 L by nasal cannula at rest and 3 L with activity she is on trilogy home vent at nighttime, osteoporosis. Patient presented to the emergency room due to pain with deep inspiration patient had called her primary care physician who advised her to come to the emergency room just to rule out a possible pulmonary embolism. Upon talking to the patient she states that she has shoulder pain and thinks that that is what is causing radiation to his back and foot and front of the chest does not feel short of breath denies any wheezing ,denies any cough ,no sputum production, no fevers no rigors no chills, no nausea no vomiting, has been in her usual state of health. Preliminary workup was significant for a D-dimer of 0.37 a V/Q scan was indeterminate. Patient has been placed in observation for further monitoring assessment management and evaluation. Interval history: Feels about the same. No change in her chest pain and shortness of breath. Reports chest pain and shortness of breath is with exertion and movement of her arm. Intermittent an ongoing since past few months. Gotten worse over the past 2 weeks. No fever but was noted to have fever yesterday in the afternoon Review of Systems Review of Systems: All systems reviewed & are unremarkable except as noted in HPI and below (HPI) Exam Narrative: GENERAL: The patient is thin built, not in acute distress HEENT: Nonicteric sclerae, PERRLA, EOMI. Oropharynx clear. Moist mucous membranes. Conjunctivae appear well perfused. CHEST: Chest wall is nontender. HEART: Regular rate a
[2021-09-09] MEDS: busPIRone HCL 5 MG TABLET PO ×3 (08:48→17:27)
[2021-09-09] MEDS: PANTOPRAZOLE 40 MG TABLET PO ×2 (08:48→17:27)
[2021-09-09] MEDS: predniSONE 1 MG TABLET 2 MG PO (08:48)
[2021-09-09] MEDS: CHOLECALCIFEROL 1,000 UNITS TABLET 2000 UNITS PO (08:49)
[2021-09-09] MEDS: OXYBUTYNIN CHLORIDE 5 MG TABLET PO (08:49)
[2021-09-09] MEDS: CYANOCOBALAMIN 1,000 MCG TABLET 1000 MCG PO (08:50)
[2021-09-09] MEDS: predniSONE 5 MG TABLET PO (08:50)
[2021-09-09] MEDS: ENOXAPARIN 40 MG/0.4 ML SYRINGE SUB-Q (11:32)
--- NOTE | 2021-09-09 11:49 | PC.NURSE ---
This patient, Juanis Jim, was transferred to [320 ] on 09/09/21 at 1145. Personal belongings sent with patient. Report given to [Naa ]. Appropriate documentation sent with patient.
--- NOTE | 2021-09-09 12:22 | PC.NURSE ---
This patient, Juanis Jim, was received from [212/01 to room 320/02 ] on 09/09/21 at 1140. Patient/family oriented to unit policies and routines. pt orientated to use to call light. no concerns or complaints at this time. resting in bed,call light in reach.
[2021-09-09] MEDS: predniSONE 40 MG, predniSONE 10 MG 50 MG PO (20:25)
[2021-09-09] MEDS: ACETAMINOPHEN 500 MG TABLET PO (20:30)
[2021-09-09] MEDS: diphenhydrAMINE HCl CAP 25 MG CAPSULE PO (20:31)
[2021-09-09] MEDS: FLUTICASONE PROPIONATE 0.05% NA SPR 16 GM BTL (*BKC) 2 SPRAY NASAL (21:27)
[2021-09-10] VITALS (8 sets, daily range): BP systolic 114–121; BP diastolic 64–76; PULSE 60–104; RESP 18–20; TEMP 35.8–37; O2SAT 98–100
[2021-09-10] MEDS: predniSONE 40 MG, predniSONE 10 MG 50 MG PO ×2 (02:53→08:08)
[2021-09-10 06:37] LABS: Basophils Percent Auto 0.3 % (0.2-1.2); Hematocrit 40.3 % (37.0-47.0); Hemoglobin 13.8 g/dL (12.0-15.0); Immature Granulocyte Absolute 0.02 K/mm3 (0.00-0.031); Immature Granulocyte Percent A 0.3 % (0-0.5); Lymphocytes Percent Auto 9.6 % (18.3-44.2); Mean Corpuscular HGB Conc 34.2 g/dl (32-36); Mean Corpuscular Hemoglobin 32.2 pg (26-34); Mean Corpuscular Volume 93.9 fl (80-100); Mean Platelet Volume 9.1 fl (7.4-10.4); Monocytes Absolute Auto 0.1 K/mm3 (0.1-0.6); Monocytes Percent Auto 1.9 % (2.6-8.5); Neutrophils Absolute Auto 6.4 K/mm3 (1.3-6.7); Neutrophils Percent Auto 87.9 % (45.5-73.1); Platelet Count Result 270 k/mm3 (150-375); Red Blood Count 4.29 M/mm3 (4.2-5.4); Red Cell Distribution Width 11.9 % (11.5-14.5); White Blood Count 7.3 K/mm3 (4.5-10.0)
[2021-09-10 06:48] LABS: Anion Gap 7 mmol/L (8-16); Blood Urea Nitrogen 21 mg/dL (7-17); Calcium 9.6 mg/dL (8.4-10.2); Carbon Dioxide 32 mmol/L (22-30); Chloride 98 mmol/L (98-107); Estimated CRCL calculation 55 ml/min; Estimated Glomerular Filt Rate > 60; Glucose 148 mg/dL (65-110); Potassium 4.3 mmol/L (3.4-5.0); Sodium 137 mmol/L (137-145)
[2021-09-10] MEDS: OXYBUTYNIN CHLORIDE 5 MG TABLET PO (08:02)
[2021-09-10] MEDS: ENOXAPARIN 40 MG/0.4 ML SYRINGE SUB-Q (08:02)
[2021-09-10] MEDS: busPIRone HCL 5 MG TABLET PO ×2 (08:03→17:23)
[2021-09-10] MEDS: PANTOPRAZOLE 40 MG TABLET PO ×2 (08:03→17:23)
[2021-09-10] MEDS: CHOLECALCIFEROL 1,000 UNITS TABLET 2000 UNITS PO (08:03)
[2021-09-10] MEDS: CYANOCOBALAMIN 1,000 MCG TABLET 1000 MCG PO (08:03)
[2021-09-10] MEDS: diphenhydrAMINE HCl INJ 50 MG/ML VIAL IV PUSH (08:12)
--- NOTE | 2021-09-10 09:47 | EST_ITS ---
Patient Info Name: Juanis Jim Age: 66 years : 1955 Gender: Female Ht: 61 in Wt: 98 lbs BSA: 1.38 m2 HR: 72 bpm BP: 126 / 81 mmHg Heart Rhythm: Sinus Rhythm Exam Date: 09/11/2021 1:35 PM Exam Location: [facility] [place] Stress Patient Status: Inpatient Admit Date: 09/08/2021 Staff Ordering Physician: Maciej Alvarez MD Attending Provider: Dewayne Darnell MD Exercise Technologist: Lana Ambrose CT Exercise Physician: Eusebio Orona MD Exam Type: CA stress nemo w NM Study Info Indications R07.9 - Chest pain, unspecified A regadenoson stress test was performed. Summary 1. Normal sinus rhythm. 2. Premature atrial contraction. 3. No abnormal ST/T wave changes with exercise. 4. Clinically and electrocardiographically uneventful Lexiscan stress test. 5. Myocardial perfusion imaging exam to be dictated by the Radiology Department. Protocol: Lexiscan Stress ECG Details Stage: REST Duration (min): 1 min : 7 sec HR (bpm): 79 SBP (mmHg): 126 DBP (mmHg): 81 Stage: REST Duration (min): 31 min : 36 sec HR (bpm): 80 SBP (mmHg): 126 DBP (mmHg): 81 Stage: STAGE 1 Duration (min): 1 min : 0 sec HR (bpm): 104 SBP (mmHg): 141 DBP (mmHg): 88 Stage: RECOVERY Duration (min): 1 min : 0 sec HR (bpm): 112 SBP (mmHg): 141 DBP (mmHg): 88 Stage: RECOVERY Duration (min): 2 min : 0 sec HR (bpm): 109 SBP (mmHg): 141 DBP (mmHg): 88 Stage: RECOVERY Duration (min): 3 min : 0 sec HR (bpm): 111 SBP (mmHg): 113 DBP (mmHg): 77 Stage: RECOVERY Duration (min): 3 min : 17 sec HR (bpm): 107 SBP (mmHg): 113 DBP (mmHg): 77 Rest HR: 80 bpm Peak HR: 113 bpm Rest Sys BP: 126 mmHg Peak Sys BP: 141 mmHg Max Pred HR: 154 bpm % Max Pred HR: 73 % Target HR: 131 bpm Max RPP: 15,933 bpm*mmHg Termination Reason: Completed protocol Cardiac Symptoms: None Total Time: 1 min : 0 sec Rest Turk BP: 81 mmHg Peak Turk BP: 88 mmHg Total Dose: 0.4 mg Resting ECG Normal sinus rhythm. Premature atrial contraction. Stress ECG No abnormal ST/T wave changes with exercise. Arrhythmias Occasional PACs. Report Signatures
--- NOTE | 2021-09-10 10:58 | PM.IMPN ---
Progress Note: A&P Assessment and Plan (1) Chest pain: Code(s): R07.9 - Chest pain, unspecified Status: Acute Assessment and Plan: Likely secondary to left frozen shoulder Patient he is undergoing therapy Pain management Tylenol as needed Will get CT shoulder for further evaluation this is currently pending Is ongoing exertional chest pain will order Lexiscan to rule out cardiac etiology. Cardiology consultation as well be obtained as discussed with patient (2) Suspected pulmonary embolism: Code(s): R09.89 - Other specified symptoms and signs involving the circulatory and respiratory systems Status: Acute Assessment and Plan: Indeterminate V/Q scan However D-dimer normal Doubtful of acute pulmonary embolism She had had CTAs in the past without any problem however 1 episode some rash. Will do pre treatment precautionary and performed CTA to rule a PE CTA came back negative for PE (3) Chronic respiratory failure with hypoxia, on home O2 therapy: Code(s): J96.11 - Chronic respiratory failure with hypoxia; Z99.81 - Dependence on supplemental oxygen Status: Acute Assessment and Plan: Continue supplemental oxygen 2 L at rest and 3 L with activity On trilogy home vent at nighttime (4) Impingement syndrome of left shoulder region: Code(s): M75.42 - Impingement syndrome of left shoulder Status: Acute Assessment and Plan: Follow-up in outpatient setting CT shoulder and 60 neck as ordered Cervical CT does show moderate to severe cervical degenerative disc disease with disc space narrowing. This could be 1 of the reasons for left shoulder pain. Recommended her to follow up her primary care potentially pain management referral (5) GERD (gastroesophageal reflux disease): Qualifiers: Esophagitis presence: esophagitis presence not specified Qualified Code(s): K21.9 - Gastro-esophageal reflux disease without esophagitis Code(s): K21.9 - Gastro-esophageal reflux disease without esophagitis Status: Acute Assessment and Plan: PPI as needed (6) COPD, severe: Code(s): J44.9 - Chronic obstructive pulmonary disease, unspecified Status: Acute Assessment and Plan: Continue home meds Continue to monitor Feel some of these symptoms related to COPD exacerbation. Will continue steroid prior than her usual home doses (7) COPD exacerbation: Code(s): J44.1 - Chronic obstructive pulmonary disease with (acute) exacerbation Status: Acute Assessment and Plan: Steroid not much wheezing. Any further treatment with steroid. Bronchodilators as ordered will change to p.r.n. Subjective Date/time seen: 09/10/21 10:58 Interval history: HPI: This is a 66-year-old female with past medical history significant for severe COPD/emphysema, 40 pack year smoking history, gastroesophageal reflux disease, on supplemental home O2 2 L by nasal cannula at rest and 3 L with activity she is on trilogy home vent at nighttime, osteoporosis. Patient presented to the emergency room due to pain with deep inspiration patient had called her primary care physician who advised her to come to the emergency room just to rule out a possible pulmonary embolism. Upon talking to the patient she states that she has shoulder pain and thinks that that is what is causing radiation to his back and foot and front of the chest does not feel short of breath denies any wheezing ,denies any cough ,no sputum production, no fevers no rigors no chills, no nausea no vomiting, has been in her usual state of health. Preliminary workup was significant for a D-dimer of 0.37 a V/Q scan was indeterminate. Patient has been placed in observation for further monitoring assessment management and evaluation. Interval history: Chest pain persist. It is with exertion it is more on the left upper area and shoulder area. Associated with shortness of breath. Reviewed results wit
[2021-09-10] MEDS: ACETAMINOPHEN 500 MG TABLET PO (20:42)
[2021-09-10] MEDS: diphenhydrAMINE HCl CAP 25 MG CAPSULE PO (20:46)
[2021-09-11 06:00] VITALS: BP 122/71; PULSE 88; RESP 18; TEMP 36.3; O2SAT 95
[2021-09-11 08:00] VITALS: O2SAT 96
[2021-09-11] MEDS: ENOXAPARIN 40 MG/0.4 ML SYRINGE SUB-Q (08:06)
[2021-09-11] MEDS: FLUTICASONE PROPIONATE 0.05% NA SPR 16 GM BTL (*BKC) 2 SPRAY NASAL (08:07)
[2021-09-11] MEDS: busPIRone HCL 5 MG TABLET PO ×2 (08:08→16:45)
[2021-09-11] MEDS: CHOLECALCIFEROL 1,000 UNITS TABLET 2000 UNITS PO (08:08)
[2021-09-11] MEDS: predniSONE 1 MG TABLET 2 MG PO (08:08)
[2021-09-11] MEDS: predniSONE 5 MG TABLET PO (08:08)
[2021-09-11] MEDS: MECLIZINE HCL 25 MG TABLET PO (08:08)
[2021-09-11] MEDS: CYANOCOBALAMIN 1,000 MCG TABLET 1000 MCG PO (08:09)
[2021-09-11] MEDS: PANTOPRAZOLE 40 MG TABLET PO ×2 (08:09→16:45)
[2021-09-11] MEDS: OXYBUTYNIN CHLORIDE 5 MG TABLET PO (08:09)
[2021-09-11 09:00] VITALS: O2SAT 93
[2021-09-11 10:30] VITALS: O2SAT 95
--- NOTE | 2021-09-11 12:47 | PC.NURSE ---
Pt transferred to [facility] with 2L NC via wheelchair at 1245.
[2021-09-11 15:04] VITALS: BP 119/80; PULSE 86; RESP 16; TEMP 36.4; O2SAT 99
--- NOTE | 2021-09-11 15:38 | PM.DS ---
DS: Admitting Diagnosis Discharge Date 09/11/21 Admitting Diagnosis Chest pain DS: Discharge Diagnosis Discharge Diagnosis (1) Chest pain: Code(s): R07.9 - Chest pain, unspecified Status: Acute (2) Suspected pulmonary embolism: Code(s): R09.89 - Other specified symptoms and signs involving the circulatory and respiratory systems Status: Acute (3) Chronic respiratory failure with hypoxia, on home O2 therapy: Code(s): J96.11 - Chronic respiratory failure with hypoxia; Z99.81 - Dependence on supplemental oxygen Status: Acute (4) Impingement syndrome of left shoulder region: Code(s): M75.42 - Impingement syndrome of left shoulder Status: Acute (5) GERD (gastroesophageal reflux disease): Qualifiers: Esophagitis presence: esophagitis presence not specified Qualified Code(s): K21.9 - Gastro-esophageal reflux disease without esophagitis Code(s): K21.9 - Gastro-esophageal reflux disease without esophagitis Status: Acute (6) COPD, severe: Code(s): J44.9 - Chronic obstructive pulmonary disease, unspecified Status: Acute (7) COPD exacerbation: Code(s): J44.1 - Chronic obstructive pulmonary disease with (acute) exacerbation Status: Acute DS: Summary Hospital Course Reason for hospitalization: 66yo female with COPD and chronic respiratory failure here for chest pain. Please see H&P for details Hospital Course: Patient presents with complaints of chest pain and appears to be more left lower chest athat radiates to the back. No skin changes to suggest shingles. She had a normal CBC, PT/PTT and DDimer. CMP also within normal limits and Trop negative x3. 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 CXR showing hyperinflation and Perfusion scan showing intermediate probability for PE, LE doppler negative for DVT. CTA was negative for PE as well; chronic findings noted. She underwent Lexiscan stress test showing no EKG changes and no definite ischemia or infarct and had a normal left ventricular ejection fraction measuring >70%. Likely her symptoms were secondary to left frozen shoulder. CT shoulder showing polyarticular osteoarthritis. CT cervical spine moderate-severe cervical spondylosis. Advised patient that her pain most likely musculoskeletal and she should follow up with her doctor for further evaluation and treatment She had a minor COPD exacerbation. We continued supplemental oxygen 2 L at rest and 3 L with activity. We also continued trilogy that she uses at home. She did well and was able to be discharged home on 09/11/21. Status at Discharge Cognitive/behavioral status at discharge: stable Time Spent with Patient Time attestation: Total time spent providing and/or coordinating discharge services:35 minutes Time spent: Greater than 30 minutes Exam Narrative: AF 97.6 119/80 86 16 99% Gen - NARD Chest - clear distant BS, nml RR CV - RRR S1/S2 Abd - Soft, NT/ND, Positive BS Ext - No pedal edema Psych - Nml mood and affect Skin - Warm and dry Discharge Plan Discharge Attending physician on discharge: Dewayne Darnell Discharging Clinician: Dewayne Darnell Anticipated Discharge Date/Time: 09/11/21 15:18 Patient Disposition: Home, Self-Care Activity: as tolerated Diet: regular Discharge Instructions: Please avoid large gathering, wear face coverings in public and practice social distance. Contact your doctor or call 911 and come to the Emergency Room if you have increasing shortness of breath or other worrisome symptoms. Avoid NSAIDs (ibuprofen, naproxen, Aleve). Tylenol is safe to take. Follow-up with your doctor in 1-2 weeks. Please call for appointment. Continue supplemental oxygen 2 L at rest and 3 L with activity Continue with Trilogy at home with sleep including naps Patient Instructions: Antibiotic Form Stand Alone Forms: General Discharge Information Foll
== END 2021-09-11 17:00 | disposition home or self-care (01) ==
LOC: ANHED 15:53 → ANHIMU 21:51 → ANH3MEDSUR 09-09 12:02
PROVIDERS: Internal Medicine; Admitting Provider Internal Medicine; Emergency Provider Emergency Medicine; PCP Internal Medicine; Visit Provider Internal Medicine
DX: R07.9 Chest pain, unspecified (principal); J96.11 Chronic respiratory failure with hypoxia; J44.1 Chronic obstructive pulmonary disease with (acute) exacerbation; M75.42 Impingement syndrome of left shoulder; K21.9 Gastro-esophageal reflux disease without esophagitis; M15.9 Polyosteoarthritis, unspecified; M47.812 Spondylosis without myelopathy or radiculopathy, cervical region; Z87.891 Personal history of nicotine dependence; Z99.81 Dependence on supplemental oxygen
CPT/HCPCS: 36415; 71046; 71275; 72125; 73200; 78452; 78580; 80048; 80053; 84484; 85025; 85380; 85610; 85730; 93005; 93017; 93970; 94640; 96372; 96374; 99285; A9270; A9502; A9540; G0378; J1200; J1650; J2785; J7512; Q9967

== ENCOUNTER → 2021-10-25 02:43 | Outpatient (CLI) | payer MEDICARE, MEDICAID, SELFPAY ==
[2021-10-25 17:58] LABS: SARS-CoV-2 RNA PCR Negative
== END ==
PROVIDERS: PCP Internal Medicine; Visit Provider Nurse Practitioner
DX: R68.89 Other general symptoms and signs (principal); Z20.822 Contact with and (suspected) exposure to COVID-19
CPT/HCPCS: C9803; U0003; U0005

== ENCOUNTER 2021-11-16 13:37 | Outpatient (CLI) | payer MEDICARE, MEDICAID, SELFPAY ==
--- NOTE | 2021-11-16 13:39 | ECHO_ITS ---
Patient Info Name: Juanis Jim Age: 66 years : 1955 Gender: Female Ht: 61 in Wt: 98 lbs BSA: 1.38 m2 HR: 92 bpm BP: 135 / 84 mmHg Heart Rhythm: Sinus Rhythm Exam Date: 11/16/2021 1:58 PM Exam Location: [facility] Patient Status: Outpatient Admit Date: 11/16/2021 Staff Ordering Physician: Riaz David APRN Senior Systems Software Engineer: Phani Masters RDCS, RT Attending Provider: Riaz David APRN Referring Physician: Frankie JIMÉNEZ; Exam Type: CA echo doppler color flow Study Info Indications R06.02 - Shortness of breath Complete two-dimensional, color flow and Doppler transthoracic echocardiogram is performed. Strain analysis performed. Summary 1. Complete two-dimensional, color flow and Doppler transthoracic echocardiogram is performed. 2. Strain analysis performed. 3. Left ventricular chamber dimension is normal. 4. Left ventricular systolic function is mildly reduced, estimated at 45-50%. 5. There is mildly increased left ventricular wall thickness. 6. The left ventricular diastolic function is abnormal. 7. Global longitudinal strain is borderline at -16 %. 8. There is mild aortic valve calcification. 9. There is mild aortic valve regurgitation. 10. There is mild mitral valve regurgitation. 11. There is mild tricuspid valve regurgitation. 12. Mild pulmonary hypertension, estimated pulmonary arterial systolic pressure is 39 mmHg. 13. There is mild pulmonic regurgitation. Left Ventricle Left ventricular chamber dimension is normal. Left ventricular systolic function is mildly reduced, estimated at 45-50%. There is mildly increased left ventricular wall thickness. The left ventricular diastolic function is abnormal. Global longitudinal strain is borderline at -16 %. Right Ventricle Right ventricular chamber dimension is normal. Right ventricular systolic function is normal. Left Atria Left atrial chamber dimension is normal. Right Atria Right atrial chamber dimension is normal. Atrial Septum Intact interatrial septum visualized by color flow imaging. Aortic Valve The aortic valve is trileaflet. There is no aortic valve stenosis. There is mild aortic valve regurgitation. There is mild aortic valve calcification. Pulmonic Valve The pulmonic valve is normal. There is no pulmonic valve stenosis. There is mild pulmonic regurgitation. Mitral Valve The mitral valve has normal leaflets. There is no mitral valve stenosis. There is mild mitral valve regurgitation. Tricuspid Valve The tricuspid valve leaflets are normal. There is no significant tricuspid valve stenosis. There is mild tricuspid valve regurgitation. Mild pulmonary hypertension, estimated pulmonary arterial systolic pressure is 39 mmHg. Pericardium/Pleural The pericardium appears normal. There is no pericardial effusion. Inferior Vena Cava Dilated inferior vena cava with >50% collapse upon inspiration consistent with elevated right atrial pressure, 10 mmHg. Aorta The aortic root size at the sinus of Valsalva is normal. Left Ventricular Outflow Tract Name Value Normal LVOT 2D LVOT Diameter 2.0 cm LVOT Doppler
== END 2021-11-16 13:38 | disposition home or self-care (01) ==
PROVIDERS: PCP Internal Medicine; Visit Provider Nurse Practitioner Family
DX: I27.20 Pulmonary hypertension, unspecified (principal); R06.02 Shortness of breath; I08.3 Combined rheumatic disorders of mitral, aortic and tricuspid valves
CPT/HCPCS: 93306

== ENCOUNTER 2021-11-28 15:34 | Emergency (ER) | payer MEDICARE, MEDICAID, SELFPAY ==
--- NOTE | ~2021-11-28 | XR_ITS ---
EXAMINATION: XR chest 1V portable EXAM DATE: 11/28/2021 17:27 INDICATION: Cough x1wk. TECHNIQUE: Portable AP frontal chest x-ray was obtained. Comparison is made to prior examination from 09/08/2021. FINDINGS: The lungs are severely hyperinflated which can be seen with chronic obstructive pulmonary d isease (a clinical diagnosis of functional impairment), but is not diagnostic of it. No confluent co nsolidation, pneumothorax or pleural effusion suspected. Cardiomediastinal silhouette is normal. Ther e are no osseous abnormalities identified. IMPRESSION: 1. Severe chronic hyperinflation. 2. No focal airspace disease. Reviewed, dictated and finalized at location A. GHT AND PASSENGER AGENT
[2021-11-28 15:39] VITALS: BP 124/73; PULSE 94; RESP 20; TEMP 36.5; O2SAT 99
[2021-11-28 16:34] VITALS: PULSE 89
[2021-11-28 16:35] VITALS: BP 123/74; PULSE 87; RESP 18; O2SAT 98; O2SAT 99
--- NOTE | 2021-11-28 17:10 | ECG_ITS ---
Measurements Intervals [place] Rate: 77 P: 79 NE: 139 QRS: 43 QRSD: 90 T: 67 QT: 371 QTc: 421 Interpretive Statements SINUS RHYTHM INCOMPLETE RIGHT BUNDLE BRANCH BLOCK MINIMAL Q WAVES- LATERAL LEADS BORDERLINE ECG Electronically Signed On 11-28-2021 20:07:01 FAMILY SPECIALIST by Joe Linares D.O.
[2021-11-28 17:51] VITALS: BP 110/70; PULSE 85; RESP 19; O2SAT 100
[2021-11-28 18:56] VITALS: BP 97/59; PULSE 70; RESP 20; O2SAT 97
--- NOTE | 2021-11-28 20:12 | ED.GENADULT ---
HPI - General Adult General Chief complaint: Shortness of Breath/Dyspnea Stated complaint: cough, fever, covid pending. Time Seen by Provider: 11/28/21 16:50 Source: patient Mode of arrival: ambulatory Limitations: no limitations History of Present Illness HPI narrative: Patient is a 66-year-old female with history of COPD at 2 L via nasal cannula at baseline presented to emergency department with chief complaint of low-grade fever, productive cough since Saturday, headache. Patient reports that she contacted her primary care and was instructed to come to the emergency department for chest x-ray to rule out bacterial pneumonia. Patient reports that she also wants to be tested for Covid and influenza. Patient reports that she has not had any wheezing or had to use her nebulizer. Patient reports that she has not had to increase her oxygen demand. Patient reports that she does have feelings of shortness of breath with exertion but has not noticed any hypoxia. Patient reports that she has also noticed some twinges to the left side of her chest with coughing. She denies any dizziness, syncope. Related Data Home Medications Medication Instructions Recorded Confirmed Vitamin D3 2,000 mg PO DAILY 10/13/19 11/21/21 diphenhydramine-acetaminophen 1 tablet PO HS PRN 10/13/19 11/21/21 [Tylenol PM Extra Strength] mecobalamin (vitamin B12) 1,000 mcg PO DAILY 10/13/19 11/21/21 acetaminophen 650 mg 650 mg PO Q12H 11/21/21 tablet,extended release ascorbate calcium (vitamin C) 500 500 mg PO DAILY 11/21/21 mg tablet Allergies Allergy/AdvReac Type Severity Reaction Status Date / Time Iodinated Contrast Media Allergy Severe RASH AND Verified 11/28/21 16:35 SEVERE ITCHING aspirin AdvReac Intermediate Abdominal Verified 11/28/21 16:35 Pain Review of Systems Review of Systems: CONSTITUTIONAL: Reports low-grade fever, denies chills, or sweats. EYES: Denies visual changes, redness, or discharge. ENT: Denies rhinorrhea, congestion, sore throat, or otalgia. CARDIOVASCULAR: Denies chest pain, palpitations, or edema. RESPIRATORY: Reports cough and exertional dyspnea. GASTROINTESTINAL: Denies abdominal pain, nausea, vomiting, or diarrhea. GENITOURINARY: Denies dysuria or hematuria. SKIN: Denies rash or itching. MUSCULOSKELETAL: Denies back pain, joint pain, or myalgia. NEUROLOGIC: Reports headache, denies numbness, dizziness, or weakness. PSYCHIATRIC: Denies anxiety or depression. [facility] Past Medical History Medical History Adhesive capsulitis of left shoulder Alternating constipation and diarrhea Anemia Anxiety Arthritis Chronic anemia COPD (chronic obstructive pulmonary disease) GERD (gastroesophageal reflux disease) Irritable bowel syndrome with constipation Metacarpal bone fracture Nausea Osteoporosis Pulmonary embolism Radiculopathy affecting upper extremity SOB (shortness of breath) on exertion Stomach pain Tobacco abuse Vitamin B 12 deficiency Vitamin D deficiency Wears glasses Surgical History Surgical History History of bladder surgery History of breast surgery History of cholecystectomy Family History Family History Father Family history of cardiovascular disease Acute myocardial infarction Hypertension Family history of type 2 diabetes mellitus Mother Hypertension Family history of thyroid disease Family history of multiple sclerosis Other Arthritis Diabetes mellitus Heart disease Neuropathy Skin cancer Social History Social History Smoking packs per day: 1 Smoking cigarettes per day: 20.0 Years smoked: 45 Smoking pack-years: 45.00 Smoking status: Former smoker Tobacco type: cigarettes Second hand tobacco smoke exposure: Yes Smoking end date:
[2021-11-29 14:39] LABS: SARS-CoV-2 RNA PCR Negative
== END 2021-11-28 19:00 | disposition home or self-care (01) ==
PROVIDERS: Physician Assistant; Emergency Provider Emergency Medicine; PCP Internal Medicine
DX: R05.9 Cough, unspecified (principal); Z20.822 Contact with and (suspected) exposure to COVID-19; J44.9 Chronic obstructive pulmonary disease, unspecified; Z99.81 Dependence on supplemental oxygen; D64.9 Anemia, unspecified; M19.90 Unspecified osteoarthritis, unspecified site; K21.9 Gastro-esophageal reflux disease without esophagitis; K58.1 Irritable bowel syndrome with constipation; M81.0 Age-related osteoporosis without current pathological fracture; E53.8 Deficiency of other specified B group vitamins; E55.9 Vitamin D deficiency, unspecified; Z86.711 Personal history of pulmonary embolism; Z87.891 Personal history of nicotine dependence; I45.10 Unspecified right bundle-branch block
CPT/HCPCS: 71045; 87804; 93005; 99283; C9803; U0003; U0005

== ENCOUNTER 2022-04-03 13:43 | Outpatient (CLI) | payer MEDICARE, MEDICAID, SELFPAY ==
--- NOTE | ~2022-04-03 | NM_ITS ---
EXAMINATION: NM thyroid scan w uptake DATE: 04/04/2022 14:41 INDICATION: Thyrotoxicosis, unspecified without thyrotoxic crisis. COMPARISON: Chest CT 09/10/2021 TECHNIQUE: 0.365 mCi I-123 was administered orally. Scintigraphic images of the thyroid gland were o btained at 24 hours. Thyroid uptake was calculated by the technologist. FINDINGS: The thyroid uptake is 22% (normal 10-30%), with the right lobe measuring 11% uptake and the left 11%. There is no focal area of decreased or increased activity to suggest hypofunctioning or hyperfunctio kary nodule. IMPRESSION: 1. Normal thyroid scintigraphy and 24-hour iodine uptake. Reviewed, dictated and finalized at location E.
== END 2022-04-03 13:44 | disposition home or self-care (01) ==
LOC: ANHIMG 13:44
PROVIDERS: PCP Internal Medicine; Visit Provider Internal Medicine
DX: E05.90 Thyrotoxicosis, unspecified without thyrotoxic crisis or storm (principal)
CPT/HCPCS: 78014; A9516

== ENCOUNTER 2022-04-11 15:23 | Outpatient (CLI) | payer MEDICARE, MEDICAID, SELFPAY ==
[2022-04-11 16:33] LABS: Free T4 Free Thyroxine 1.19 ng/mL (0.78-2.19); Thyroid Stimulating Hormone 0.243 uIU/mL (0.465-4.680)
[2022-04-14 11:16] LABS: Triiodothyronine T3 Free 2.8 pg/mL (2.3-4.2)
[2022-04-14 20:24] LABS: Thyrotropin Receptor Antibody <1.00 IU/L (<=2.00)
== END 2022-04-11 15:24 | disposition home or self-care (01) ==
PROVIDERS: PCP Internal Medicine; Visit Provider Internal Medicine
DX: E05.90 Thyrotoxicosis, unspecified without thyrotoxic crisis or storm (principal)
CPT/HCPCS: 36415; 83519; 84439; 84443; 84481

== ENCOUNTER 2022-06-03 11:04 | Emergency (ER) | payer MEDICARE, MEDICAID, SELFPAY ==
[2022-06-03] VITALS (29 sets, daily range): BP systolic 91–131; BP diastolic 50–83; PULSE 76–93; RESP 13–25; TEMP 37.3; O2SAT 95–100
--- NOTE | ~2022-06-03 | XR_ITS ---
EXAMINATION: XR chest 1V portable DATE: 06/03/2022 11:49 INDICATION: COVID positive. Shortness of breath and cough. TECHNIQUE: frontal view of the chest was obtained. COMPARISON: Chest radiograph dated 11/28/2021 FINDINGS: Again seen is hyperexpansion of the lungs with scattered increased lucencies with prominent left mid and bilateral lower lung zones consistent with emphysema. Unchanged mild reticular opacities at the c ostophrenic angles likely related to bibasilar atelectasis/scarring. No new airspace opacities, pulmo nary edema, pleural effusion or pneumothorax. The cardiomediastinal silhouette is normal. IMPRESSION: 1. Emphysema. No acute cardiopulmonary disease.. Reviewed, dictated and finalized at location A.
--- NOTE | 2022-06-03 11:11 | ECG_ITS ---
Measurements Intervals [place] Rate: 83 P: 71 [place]: 127 QRS: 42 QRSD: 96 T: 60 QT: 380 QTc: 449 Interpretive Statements SINUS RHYTHM ATRIAL PREMATURE COMPLEXES INCOMPLETE RIGHT BUNDLE BRANCH BLOCK BASELINE WANDER- V4 BORDERLINE ECG Electronically Signed On 06-03-2022 12:55:06 CDT by Joe Linares D.O.
[2022-06-03 11:24] LABS: Basophils Percent Auto 0.2 % (0.2-1.2); Eosinophils Percent Auto 0.4 % (0-4.4); Hematocrit 35.1 % (37.0-47.0); Hemoglobin 11.5 g/dL (12.0-15.0); Immature Granulocyte Absolute 0.02 K/mm3 (0.00-0.031); Immature Granulocyte Percent A 0.2 % (0-0.5); Lymphocytes Absolute Auto 1.53 K/mm3 (0.9-3.2); Lymphocytes Percent Auto 16.6 % (18.3-44.2); Mean Corpuscular HGB Conc 32.8 g/dl (32-36); Mean Corpuscular Hemoglobin 30.7 pg (26-34); Mean Corpuscular Volume 93.9 fl (80-100); Mean Platelet Volume 9.2 fl (7.4-10.4); Monocytes Absolute Auto 0.7 K/mm3 (0.1-0.6); Monocytes Percent Auto 7.7 % (2.6-8.5); Neutrophils Absolute Auto 6.9 K/mm3 (1.3-6.7); Neutrophils Percent Auto 74.9 % (45.5-73.1); Platelet Count Result 182 k/mm3 (150-375); Red Blood Count 3.74 M/mm3 (4.2-5.4); Red Cell Distribution Width 12.3 % (11.5-14.5); White Blood Count 9.2 K/mm3 (4.5-10.0)
[2022-06-03 11:34] LABS: Alanine Aminotransferase 15 U/L (6-35); Alkaline Phosphatase 46 U/L (38-126); Anion Gap 4 mmol/L (8-16); Aspartate Amino Transferase 26 U/L (14-36); Bilirubin,Total 0.3 mg/dL (0.2-1.3); Blood Urea Nitrogen 15 mg/dL (7-17); Calcium 8.3 mg/dL (8.4-10.2); Carbon Dioxide 33 mmol/L (22-30); Chloride 101 mmol/L (98-107); Estimated CRCL calculation 55 ml/min; Estimated Glomerular Filt Rate > 60; Glucose 93 mg/dL (65-110); Potassium 3.6 mmol/L (3.4-5.0); Sodium 138 mmol/L (137-145)
--- NOTE | 2022-06-03 12:28 | ED.SOB ---
HPI - SOB/Dyspnea General Chief Complaint: Shortness of Breath/Dyspnea Stated Complaint: COVID+, dyspnea Time Seen by Provider: 06/03/22 12:22 Source: patient and EMS Mode of arrival: EMS Limitations: no limitations History of Present Illness HPI Narrative: Patient is 67 years old white female developed COVID symptoms last night, tested positive today. Patient was recently in a with most of the people had COVID at that time. Currently patient complaining of frequent coughing make her unable to sleep last nigh with generalized fatigue and weakness. She denies any shortness of breath or chest pain. History of COPD on oxygen 2 L, nasal cannula. Also denies any fever or chills or headache. Patient is fully vaccinated for COVID, boosted once. Does not smoke. Currently on prednisone 7.5 mg daily. Related Data Home Medications Medication Instructions Recorded Confirmed Vitamin D3 2,000 mg PO DAILY 10/13/19 04/25/22 diphenhydramine 25 1 tablet PO HS PRN Insomnia 10/13/19 04/25/22 mg-acetaminophen 500 mg tablet (Tylenol PM Extra Strength) mecobalamin (vitamin B12) 1,000 1,000 mcg PO DAILY 10/13/19 04/25/22 mcg disintegrating tablet,sublingual Allergies Allergy/AdvReac Type Severity Reaction Status Date / Time Iodinated Contrast Media Allergy Severe RASH AND Verified 04/25/22 13:04 SEVERE ITCHING aspirin AdvReac Intermediate Abdominal Verified 04/25/22 13:04 Pain Review of Systems Review of Systems: All systems reviewed & are unremarkable except as noted in HPI and below PMFSH Past Medical History Medical History Adhesive capsulitis of left shoulder Alternating constipation and diarrhea Anemia Anxiety Arthritis Chronic anemia COPD (chronic obstructive pulmonary disease) GERD (gastroesophageal reflux disease) Irritable bowel syndrome with constipation Metacarpal bone fracture Nausea Osteoporosis Pulmonary embolism Radiculopathy affecting upper extremity SOB (shortness of breath) on exertion Stomach pain Tobacco abuse Vitamin B 12 deficiency Vitamin D deficiency Wears glasses Surgical History Surgical History History of bladder surgery History of breast surgery History of cholecystectomy Family History Family History Father Family history of cardiovascular disease Acute myocardial infarction Hypertension Family history of type 2 diabetes mellitus Mother Hypertension Family history of thyroid disease Family history of multiple sclerosis Sibling Mesothelioma Other Diabetes mellitus Heart disease Neuropathy Skin cancer Social History Social History Smoking packs per day: 1 Smoking cigarettes per day: 20.0 Years smoked: 45 Smoking pack-years: 45.00 Smoking status: Former smoker Tobacco type: cigarettes Second hand tobacco smoke exposure: Yes Smoking end date: 11/25/13 Alcohol intake: never Substance use: current Substance use type: marijuana Last use: over 1 month ago Gender identity (if verbalized by the patient): Female Spiritual care concerns: No Course Course Emergency Course: Patient oxygenation on 2 L 97% plus. Patient main complaint on arrival to the ED is coughing which bother her all night long. She denies any chest pain, or shortness of breath. Currently patient on small dose of prednisone daily. Also on 2 L oxygen, nasal cannula. Patient does not look ill at this time, Paxil of it cannot be prescribed, is contraindicated with a lot of her current medications. My plan to discharge patient home on prednisone 40 mg once a day for the next 4 days, and come back anytime if her symptoms are worsening. I do not believe patient need to be hospitalized at this time because nothing will be added to her regimen of
[2022-06-03 12:53] LABS: Alveolar/Arterial O2 Gradient 41.1 mmHg; Base Excess ABG 4.3 mEq/l (+/-2.0); Fractional Inspired Oxygen 28 %; HCO3 ABG 29.5 mEq/l (22.0-26.0); Oxygen Content ABG 16.3 %vol (16.0-22.0); Oxygen Saturation ABG 97.8 % (95.0-100.0); Oxyhemoglobin 96.6 % THb (90.0-100.0); PCO2 ABG 46.8 mmHg (35.0-45.0); PO2 ABG 103.3 mmHg (80.0-100.0); PO2 FiO2 Ratio Arterial Blood 3.69 %; Total Hemoglobin 11.9 g/dL (12.0-18.0); pH ABG 7.418 (7.350-7.450)
[2022-06-03 12:55] LABS: Device NASAL CANNULA; Modified Allen's Test Pass; Site Drawn LEFT RADIAL
[2022-06-03 13:18] LABS: Prothrombin Time 12.5 Seconds (11.1-14.7)
[2022-06-03 13:19] LABS: Lactic Acid Reflex 0.7 mmol/L (0.7-2.0); Partial Thromboplastin Time 30.5 SECONDS (22.3-36.8)
[2022-06-03 13:22] LABS: CRP 3.5 mg/dL (<1.0)
[2022-06-03 13:47] LABS: SARS-CoV-2 RNA PCR Positive
[2022-06-03] MEDS: SODIUM CHLORIDE 0.9% IV 1,000 ML 999 ML IV CONT (14:12)
[2022-06-03] MEDS: predniSONE 20 MG TABLET 40 MG PO (14:13)
--- NOTE | 2022-06-13 11:16 | PC.NURSE ---
LATE ENTRY This note is being entered to document information to the patient's record. The following information was omitted on [06/03/2022], by [Rasheeda Nicole RN]. NS stop time was 1505.
== END 2022-06-03 14:48 | disposition home or self-care (01) ==
PROVIDERS: Emergency Medicine; Emergency Provider Emergency Medicine; PCP Internal Medicine
DX: U07.1 COVID-19 (principal); J44.9 Chronic obstructive pulmonary disease, unspecified; D64.9 Anemia, unspecified; M19.90 Unspecified osteoarthritis, unspecified site; K21.9 Gastro-esophageal reflux disease without esophagitis; K58.1 Irritable bowel syndrome with constipation; M81.0 Age-related osteoporosis without current pathological fracture; E55.9 Vitamin D deficiency, unspecified; E53.8 Deficiency of other specified B group vitamins; Z86.711 Personal history of pulmonary embolism; Z87.891 Personal history of nicotine dependence; I49.1 Atrial premature depolarization; I45.10 Unspecified right bundle-branch block
CPT/HCPCS: 36415; 36600; 71045; 80053; 82805; 83605; 85025; 85610; 85730; 86140; 87040; 87147; 87181; 87186; 93005; 96360; 99284; C9803; J7030; J7512; U0003; U0005

== ENCOUNTER 2022-08-24 12:09 | Outpatient (CLI) | payer MEDICARE, MEDICAID, SELFPAY ==
[2022-08-24 21:01] LABS: Alanine Aminotransferase 14 U/L (6-35); Alkaline Phosphatase 48 U/L (38-126); Anion Gap 8 mmol/L (8-16); Aspartate Amino Transferase 23 U/L (14-36); Bilirubin,Total 0.3 mg/dL (0.2-1.3); Blood Urea Nitrogen 17 mg/dL (7-17); Carbon Dioxide 34 mmol/L (22-30); Chloride 98 mmol/L (98-107); Estimated Glomerular Filt Rate > 60; Glucose 89 mg/dL (65-110); Potassium 3.4 mmol/L (3.4-5.0); Sodium 140 mmol/L (137-145)
[2022-08-24 21:02] LABS: Iron 81 ug/dL (37-170)
[2022-08-24 21:14] LABS: Percent Iron Saturation 25 % (20-50)
[2022-08-24 21:28] LABS: Thyroid Stimulating Hormone 0.218 uIU/mL (0.465-4.680)
[2022-08-24 21:36] LABS: Basophils Absolute Auto 0.1 K/mm3 (0.0-0.1); Basophils Percent Auto 0.6 % (0.2-1.2); Eosinophils Absolute Auto 0.2 K/mm3 (0-0.3); Eosinophils Percent Auto 1.9 % (0-4.4); Hematocrit 38.1 % (37.0-47.0); Hemoglobin 12.2 g/dL (12.0-15.0); Immature Granulocyte Absolute 0.03 K/mm3 (0.00-0.031); Immature Granulocyte Percent A 0.3 % (0-0.5); Lymphocytes Absolute Auto 1.35 K/mm3 (0.9-3.2); Lymphocytes Percent Auto 15.4 % (18.3-44.2); Mean Corpuscular Hemoglobin 31.3 pg (26-34); Mean Corpuscular Volume 97.7 fl (80-100); Mean Platelet Volume 9.3 fl (7.4-10.4); Monocytes Absolute Auto 0.7 K/mm3 (0.1-0.6); Monocytes Percent Auto 8.4 % (2.6-8.5); Neutrophils Absolute Auto 6.4 K/mm3 (1.3-6.7); Neutrophils Percent Auto 73.4 % (45.5-73.1); Platelet Count Result 267 k/mm3 (150-375); Red Cell Distribution Width 12.9 % (11.5-14.5); White Blood Count 8.8 K/mm3 (4.5-10.0)
[2022-08-24 22:08] LABS: Folic Acid > 20.0 ng/mL (2.76->20); Vitamin B12 > 1000.0 pg/mL (239-931)
== END 2022-08-24 12:10 | disposition home or self-care (01) ==
PROVIDERS: PCP Internal Medicine; Visit Provider Clinical Nurse Specialist
DX: J44.1 Chronic obstructive pulmonary disease with (acute) exacerbation (principal); D64.9 Anemia, unspecified; E05.90 Thyrotoxicosis, unspecified without thyrotoxic crisis or storm
CPT/HCPCS: 36415; 80053; 82607; 82728; 82746; 83540; 83550; 84443; 85025

== ENCOUNTER → 2022-08-24 12:31 | Outpatient (CLI) | payer MEDICARE, MEDICAID, SELFPAY ==
--- NOTE | ~2022-08-24 | XR_ITS ---
XR chest 2V 08/24/2022 13:01 Indication: History of Covid infection Procedure: 2 view chest Comparison: Comparison to multiple prior studies sequentially, with oldest reviewed study dated 12/22. Findings: Heart size normal. No focal air space disease, pulmonary edema, pleural effusion or suspect ed pneumothorax. No acute osseous abnormality. The lungs are hyperinflated which is consistent with, but not diagnostic of chronic obstructive pulmonary disease. Impression: 1: No acute cardiopulmonary disease. Reviewed, dictated and finalized at location B. Impression: 1: No acute cardiopulmonary disease.
== END ==
PROVIDERS: PCP Clinical Nurse Specialist; Visit Provider Clinical Nurse Specialist
DX: J44.9 Chronic obstructive pulmonary disease, unspecified (principal); R53.83 Other fatigue
CPT/HCPCS: 71046

== ENCOUNTER 2022-09-18 14:15 | Outpatient (CLI) | payer MEDICARE, MEDICAID, SELFPAY ==
[2022-09-18 14:49] LABS: Alveolar/Arterial O2 Gradient 72.6 mmHg; Base Excess ABG 4.9 mEq/l (+/-2.0); Carboxyhemoglobin 0.2 % THb (0-2.0); Fractional Inspired Oxygen 28 %; HCO3 ABG 31.3 mEq/l (22.0-26.0); Methemoglobin ABG 0.2 %THb (0-1.5); Oxygen Content ABG 16.2 %vol (16.0-22.0); Oxygen Saturation ABG 91.5 % (95.0-100.0); Oxyhemoglobin 90.1 % THb (90.0-100.0); PO2 ABG 63.3 mmHg (80.0-100.0); PO2 FiO2 Ratio Arterial Blood 2.26 %; Reduced Hemoglobin 9.5 %THb (0-5.0); Total Hemoglobin 12.8 g/dL (12.0-18.0); pH ABG 7.381 (7.350-7.450)
[2022-09-18 14:50] LABS: Device NASAL CANNULA; Modified Allen's Test Pass; Site Drawn RIGHT BRACHIAL
== END 2022-09-18 14:16 | disposition home or self-care (01) ==
LOC: ANHPFT 14:19
PROVIDERS: PCP Clinical Nurse Specialist; Visit Provider Internal Medicine
DX: J44.9 Chronic obstructive pulmonary disease, unspecified (principal); R40.0 Somnolence
CPT/HCPCS: 36600; 82375; 82805; 83050

== ENCOUNTER 2022-11-24 12:50 | Outpatient (CLI) | payer MEDICARE, MEDICAID, SELFPAY ==
--- NOTE | ~2022-11-24 | MM_ITS ---
EXAMINATION: MM screening yon BI w kalyani HISTORY: Screening mammogram TECHNIQUE: Craniocaudal and mediolateral oblique 3-D tomosynthesis images were obtained and synthetic 2-D images were generated. Bilateral rotated lateral CC views. The 0035 where there is CAD analysis was submitted and interpreted. COMPARISON: 09/03/2019, 12/16/2017, 10/14/2016 marrow screening mammogram examinations BREAST PARENCHYMAL COMPOSITION: The breasts are extremely dense, which lowers the sensitivity of mamm ography. FINDINGS: There is no evidence of suspicious mass, calcification, or architectural distortion to sugg est malignancy in either breast. There has been no suspicious interval change. IMPRESSION: 1. No mammographic evidence of malignancy. 2. Recommend routine screening mammography in one year. BI-RADS Category 1: Negative Reviewed, dictated and finalized at location A. ECT MANAGER
--- NOTE | ~2022-11-24 | DEXA_ITS ---
Bone Density Report Name: AGUSTIN AKBAR Age: 67 Sex: Female Ethnicity: White Date of : 1955 Indication: postmenopausal osteoporosis; height loss; history of glucocorticoids; prior fracture; Referring Provider: ASUNCION VALENTE Study: Bone densitometry was performed. Exam Date: November 24, 2022 Accession number: [id number] Bone Density: Region BMD T-score Z-score Classification AP Spine(L1-L4) 0.646 -3.6 -1.7 Osteoporosis Femoral Neck (Left) 0.500 -3.1 -1.5 Osteoporosis Total Hip (Left) 0.574 -3.0 -1.6 Osteoporosis Femoral Neck (Right) 0.526 -2.9 -1.2 Osteoporosis Total Hip (Right) 0.561 -3.1 -1.7 Osteoporosis Total Hip Mean 0.568 -3.1 -1.7 Osteoporosis World Health Organization criteria for BMD impression classify patients as: Normal (T-score at or above -1.0), Osteopenia (T-score between -1.0 and -2.5), or Osteoporosis (T-score at or below -2.5). 10-year Fracture Risk: FRAX not reported because: Some T-score for Spine Total or Hip Total or Femoral Neck at or below -2.5 Previous Exams: Region Exam Age BMD T-score BMD Change BMD Change Date g/cm2 vs Baseline vs Previous AP Spine (L1-L4) 11/24/2022 67 0.646 -3.6 0.031 (5.1%)# 0.008 (1.3%) 12/16/2017 62 0.637 -3.7 0.023 (3.7%)# 0.023 (3.7%)# 10/04/2015 60 0.614 -3.9 Total Hip(Left) 11/24/2022 67 0.574 -3.0 -0.009 (-1.5%) -0.028 (-4.7%) 12/16/2017 62 0.603 -2.8 0.019 (3.3%) 0.019 (3.3%) 10/04/2015 60 0.583 -2.9 Total Hip(Right) 11/24/2022 67 0.561 -3.1 -0.015 (-2.7%) -0.063 (-10.0% 12/16/2017 62 0.624 -2.6 0.047 (8.2%)* 0.047 (8.2%)* 10/04/2015 60 0.577 -3.0 *Denotes significance at 95% confidence level, LSC for AP Spine = 0.022 g/cm2, LSC for Total Hip = 0.027 g/cm2 # Denotes dissimilar scan types or analysis methods Clinical Information Provided by Patient: Has had a low trauma fracture Has taken Glucocorticoids Has used the following medications: Fosamax (i.e. alendronate), Vitamin D Patient maximum height was 61.5 Menopause Age: 45 No regular weight bearing exercise Drinks caffeinated beverages Onset of menses at age 14 Number of children 2 Impression: The patient has established osteoporosis, based on the Total Spine T-score and the existence of a prior fracture. The patient has risk factors, including: previous fracture, history of glucocorticoid therapy. The BMD for the Total Hip(Left) decreased, changing b
== END 2022-11-24 12:51 | disposition home or self-care (01) ==
PROVIDERS: PCP Internal Medicine; Visit Provider Physician Assistant
DX: Z12.31 Encounter for screening mammogram for malignant neoplasm of breast (principal); Z78.0 Asymptomatic menopausal state; M81.0 Age-related osteoporosis without current pathological fracture
CPT/HCPCS: 77063; 77067; 77080

== ENCOUNTER 2022-11-29 09:20 | Inpatient (IN) | payer MEDICARE, MEDICAID, SELFPAY ==
[2022-11-29] VITALS (50 sets, daily range): BP systolic 82–128; BP diastolic 49–97; PULSE 93–145; RESP 14–32; TEMP 36.4–37.2; O2SAT 91–100; BMI 17.7
--- NOTE | ~2022-11-29 | XR_ITS ---
EXAMINATION: XR chest 1V portable DATE: 11/29/2022 10:15 INDICATION: Shortness of breath. TECHNIQUE: A single frontal view of the chest was obtained. COMPARISON: Chest 2 views 08/24/2022, chest CT 09/10/2021 FINDINGS: The lungs are hyperexpanded with lucencies, consistent with emphysema. No pleural effusion or pneumothorax. The heart size is normal. IMPRESSION: 1. Emphysema. Reviewed, dictated and finalized at location A. STRETCHER HAND IMPRESSION: 1. Emphysema.
--- NOTE | 2022-11-29 09:27 | ECG_ITS ---
Measurements Intervals [place] Rate: 137 P: 76 DC: 92 QRS: -83 QRSD: 77 T: 64 QT: 278 QTc: 421 Interpretive Statements SINUS TACHYCARDIA INCOMPLETE RIGHT BUNDLE BRANCH BLOCK LEFT ANTERIOR FASCICULAR BLOCK BASELINE ARTIFACT- I, II, AVR, AVL, AVF, V1-V2 ABNORMAL ECG COMPARED TO ECG 06/03/2022 11:16:45 SINUS TACHYCARDIA NOW PRESENT LEFT ANTERIOR FASCICULAR BLOCK NOW PRESENT Electronically Signed On 11-29-2022 12:43:22 MEDICAL RECORDS CODER by Joe Linares D.O.
--- NOTE | 2022-11-29 09:29 | ED.SOB ---
HPI - SOB/Dyspnea General Chief Complaint: Shortness of Breath/Dyspnea Stated Complaint: resp distress Time Seen by Provider: 11/29/22 09:24 Source: patient and EMS Mode of arrival: EMS Limitations: clinical condition History of Present Illness HPI Narrative: 67 years old white female came to the emergency room from home by ambulance complaining of shortness of breath. Unable to speak in full sentence, patient received 125 mg of Solu-Medrol, 60 mg of albuterol and some magnesium prior to arrival to the emergency room. Patient refused BiPAP, saturation was 70% on room air, currently 97% on nonrebreather. History of COPD Later patient was able to tell me that she been using a special machine at home for COPD similar to BiPAP and around 3 AM developed vomiting at least 5 episodes and lose watery stool at least 3 episodes, could not keep the machine on and started having trouble breathing. Normally is on 2 L oxygen by nasal cannula. Related Data Home Medications Medication Instructions Recorded Confirmed Vitamin D3 2,000 mg PO DAILY 10/13/19 10/16/22 diphenhydramine 25 1 tablet PO HS PRN Insomnia 10/13/19 10/16/22 mg-acetaminophen 500 mg tablet (Tylenol PM Extra Strength) mecobalamin (vitamin B12) 1,000 1,000 mcg PO DAILY 10/13/19 10/16/22 mcg disintegrating tablet,sublingual Allergies Allergy/AdvReac Type Severity Reaction Status Date / Time Iodinated Contrast Media Allergy Severe RASH AND Verified 10/16/22 11:25 SEVERE ITCHING aspirin AdvReac Intermediate Abdominal Verified 10/16/22 11:25 Pain Review of Systems Review of Systems: ROS unobtainable: Yes unobtainable due to medical condition PMFSH Past Medical History Medical History Adhesive capsulitis of left shoulder Anxiety Arthritis Chronic anemia Chronic obstructive pulmonary disease Emphysema lung Gastroesophageal reflux disease Nausea Osteoporosis Pulmonary embolism Tobacco abuse Vitamin B 12 deficiency Vitamin D deficiency Wears glasses Surgical History Surgical History History of benign breast biopsy History of bladder suspension procedure History of cholecystectomy (2002) History of colonoscopy Family History Family History Father Family history of cardiovascular disease Acute myocardial infarction Hypertension Family history of type 2 diabetes mellitus Mother Hypertension Family history of thyroid disease Family history of multiple sclerosis Sibling Mesothelioma Other Diabetes mellitus Heart disease Neuropathy Skin cancer Social History Social History Social History: Surrogate medical decision maker: Monique Wright, daughter. Code status: Full code. Smoking packs per day: 1 Smoking cigarettes per day: 20.0 Years smoked: 45 Smoking pack-years: 45.00 Smoking status: Former smoker Tobacco type: cigarettes Second hand tobacco smoke exposure: Yes Smoking end date: 11/25/13 Alcohol intake: never Substance use: current Substance use type: marijuana Lack of Transportation: No Lack of Food: Never True Current Housing: I Have Housing Concerned About Future Housing: No Difficulty Paying Gas/Electric Bills: No Difficulty Paying for Meds: No Currently Unemployed: No Education: Decline to Answer Difficulty w/ Childcare or Family Care: No Spiritual care concerns: No Exam Narrative: General appearance: Well-developed, well-nourished, malnourished, underweight, in severe respiratory distress Skin: Pale Head: Normocephalic, nontraumatic Eyes: Clear conjunctiva ENT: Oropharynx normal, ears normal, nose normal Neck: Supple, nontender Chest and respiratory: Severe diminution of air entry bilaterally, fine wheezing bilaterally, severe labored breathin
[2022-11-29] MEDS: ALBUTEROL SULFATE NEB 2.5 MG/3 ML INH 5 MG INHALATION ×3 (09:39→11:18)
[2022-11-29] MEDS: IPRATROPIUM BR 0.02% INH SOLN 0.5 MG/2.5 ML VIAL INHALATION (09:40)
[2022-11-29 09:47] LABS: Basophils Percent Auto 0.2 % (0.2-1.2); Eosinophils Percent Auto 0.4 % (0-4.4); Hematocrit 41.7 % (37.0-47.0); Hemoglobin 13.3 g/dL (12.0-15.0); Immature Granulocyte Absolute 0.02 K/mm3 (0.00-0.031); Immature Granulocyte Percent A 0.2 % (0-0.5); Lymphocytes Absolute Auto 1.35 K/mm3 (0.9-3.2); Lymphocytes Percent Auto 13.6 % (18.3-44.2); Mean Corpuscular HGB Conc 31.9 g/dl (32-36); Mean Corpuscular Hemoglobin 30.6 pg (26-34); Mean Corpuscular Volume 96.1 fl (80-100); Mean Platelet Volume 8.9 fl (7.4-10.4); Monocytes Absolute Auto 0.5 K/mm3 (0.1-0.6); Monocytes Percent Auto 4.9 % (2.6-8.5); Neutrophils Percent Auto 80.7 % (45.5-73.1); Platelet Count Result 255 k/mm3 (150-375); Red Blood Count 4.34 M/mm3 (4.2-5.4); Red Cell Distribution Width 13.2 % (11.5-14.5); White Blood Count 9.9 K/mm3 (4.5-10.0)
[2022-11-29 09:57] LABS: Alanine Aminotransferase 24 U/L (6-35); Albumin Level 4.4 g/dL (3.5-5.1); Alkaline Phosphatase 54 U/L (38-126); Anion Gap 5 mmol/L (8-16); Aspartate Amino Transferase 44 U/L (14-36); Bilirubin,Total 0.6 mg/dL (0.2-1.3); Blood Urea Nitrogen 31 mg/dL (7-17); Calcium 8.4 mg/dL (8.4-10.2); Carbon Dioxide 33 mmol/L (22-30); Chloride 98 mmol/L (98-107); Estimated CRCL calculation 52 ml/min; Estimated Glomerular Filt Rate > 60; Glucose 140 mg/dL (65-110); Magnesium 1.8 mg/dL (1.6-2.3); Potassium 4.3 mmol/L (3.4-5.0); Sodium 136 mmol/L (137-145)
[2022-11-29 09:59] LABS: Prothrombin Time 13.1 Seconds (11.1-14.7)
[2022-11-29 10:00] LABS: Partial Thromboplastin Time 27.2 SECONDS (22.3-36.8)
[2022-11-29 10:00] LABS: Alveolar/Arterial O2 Gradient 124.1 mmHg; Base Excess ABG 0.6 mEq/l (+/-2.0); Fractional Inspired Oxygen 50 %; HCO3 ABG 28.8 mEq/l (22.0-26.0); Oxygen Content ABG 18.7 %vol (16.0-22.0); Oxygen Saturation ABG 98.8 % (95.0-100.0); Oxyhemoglobin 96.8 % THb (90.0-100.0); PO2 ABG 161.6 mmHg (80.0-100.0); PO2 FiO2 Ratio Arterial Blood 3.23 %; Total Hemoglobin 13.5 g/dL (12.0-18.0)
[2022-11-29 10:03] LABS: pH ABG 7.279 (7.350-7.450)
[2022-11-29 10:04] LABS: Device NON-INVASIVE VENT; PCO2 ABG 62.9 mmHg (35.0-45.0); Site Drawn LEFT BRACHIAL
[2022-11-29 10:05] LABS: Non-Invasive Expiratory Pressure 6 CMH2O; Non-Invasive Inspiratory Pressure 12 CMH2O; Non-Invasive Vent Rate 12 /MIN
[2022-11-29 10:08] LABS: NT Pro B Type Natriuretic Pept 157 pg/mL (5-100); Troponin I < 0.012 ng/mL (0.000-0.034)
[2022-11-29 10:09] LABS: Influenza A QL RT-PCR Negative (Negative); Influenza B QL RT-PCR Negative (Negative); SARS-CoV-2 RNA PCR Negative
--- NOTE | 2022-11-29 11:37 | PC.NURSE ---
ERP notified and aware about Pt. drop in blood pressure. New ABG ordered.
[2022-11-29 12:18] LABS: Alveolar/Arterial O2 Gradient 96.9 mmHg; Base Excess ABG -1.1 mEq/l (+/-2.0); Fractional Inspired Oxygen 40 %; HCO3 ABG 24.5 mEq/l (22.0-26.0); Oxygen Content ABG 17.4 %vol (16.0-22.0); Oxygen Saturation ABG 98.6 % (95.0-100.0); Oxyhemoglobin 96.2 % THb (90.0-100.0); PCO2 ABG 44.5 mmHg (35.0-45.0); PO2 ABG 137.1 mmHg (80.0-100.0); PO2 FiO2 Ratio Arterial Blood 3.43 %; Total Hemoglobin 12.7 g/dL (12.0-18.0); pH ABG 7.359 (7.350-7.450)
[2022-11-29 12:20] LABS: Device NON-INVASIVE VENT; Non-Invasive Vent Rate 12 /MIN; Site Drawn RIGHT BRACHIAL
[2022-11-29 12:21] LABS: Non-Invasive Expiratory Pressure 6 CMH2O; Non-Invasive Inspiratory Pressure 16 CMH2O
[2022-11-29] MEDS: SODIUM CHLORIDE 0.9% IV 1,000 ML 999 ML IV CONT (12:35)
--- NOTE | 2022-11-29 14:00 | PM.IMHP ---
H&P: HPI History of Present Illness Date/Time: 11/29/22 14:00 Chief Complaint: Shortness of breath. Narrative: This is a 67-year-old female with severe COPD with emphysema by PFTs in 2017 and chronic respiratory failure on 2 liters during the day as needed and trilogy unit at nighttime who presented to the emergency department via EMS from home for evaluation of shortness of breath. She has not felt well for the last couple of weeks with generalized fatigue, increasing shortness of breath on lesser and lesser exertion, mild sore throat, runny nose, and cough which has been occasionally productive of yellowish sputum. She was seen by her doctor and was apparently diagnosed with vitamin B12 deficiency and she has had 2 injections which she hoped would help her fatigue but humphreys it has not. Several family members have had GI symptoms and last night she developed nausea and reports having several episodes of emesis and diarrhea followed by dry heaves and subjective fever. Due to the vomiting and dry heaves she was unable to wear her trilogy and this morning she was significantly short of breath, wheezy, and even a bit confused. On EMS arrival her SpO2 was reportedly 70% on room air and she was placed on a non-rebreather and ultimately started on BiPAP in the ED. She was afebrile on arrival with stable blood pressures. She was placed on BiPAP and started on bronchodilators and steroids. She tested negative for influenza and COVID. Chest x-ray showed emphysema without evidence of infiltrate or edema. She is being admitted in this setting for further treatment. At the time my evaluation she feels much better and she has no specific complaints. She specifically denies documented fever, headache, chest pain, pleuritic pain, palpitations, and dysuria. She has not had nausea, vomiting, dry heaves, or diarrhea since arrival to the ER. Review of Systems Review of Systems: Twelve systems were reviewed and are negative except for as per HPI. [facility] Past Medical History Medical History Adhesive capsulitis of left shoulder Anxiety Arthritis Chronic anemia Chronic obstructive pulmonary disease Emphysema lung Gastroesophageal reflux disease Nausea Osteoporosis Pulmonary embolism Tobacco abuse Vitamin B 12 deficiency Vitamin D deficiency Wears glasses Surgical History Surgical History History of benign breast biopsy History of bladder suspension procedure History of cholecystectomy (2002) History of colonoscopy Family History Family History Father Family history of cardiovascular disease Acute myocardial infarction Hypertension Family history of type 2 diabetes mellitus Mother Hypertension Family history of thyroid disease Family history of multiple sclerosis Sibling Mesothelioma Other Diabetes mellitus Heart disease Neuropathy Skin cancer Social History Social History Social History: Surrogate medical decision maker: Monique Wright, daughter. Code status: Full code. Smoking packs per day: 1 Smoking cigarettes per day: 20.0 Years smoked: 40 Smoking pack-years: 40.00 Smoking status: Former smoker Tobacco type: cigarettes Second hand tobacco smoke exposure: No Smoking end date: 05/04/14 Alcohol intake: former Substance use: former Substance use type: marijuana Other substance usage details: 2 years ago Lack of Transportation: No Lack of Food: Never True Current Housing: I Have Housing Concerned About Future Housing: No Difficulty Paying Gas/Electric Bills: No Difficulty Paying for Meds: No Currently Unemployed: No Education: High School Diploma/GED Difficulty w/ Childcare or Family Care: No Spiritual care concerns: No Meds Home Medications
[2022-11-29] MEDS: SODIUM CHLORIDE 0.9% IV 1,000 ML 125 ML IV CONT ×2 (14:14→23:16)
[2022-11-29] MEDS: methylPREDNISolone SOD SUCC 125 MG VIAL 60 MG IV PUSH ×3 (14:43→23:14)
--- NOTE | 2022-11-29 16:05 | ADMGEN ---
This patient, Juanis Jim, was admitted to IMU Room 232-01 at 1517. Patient/family oriented to hospital policies and general routines including ID bracelet, bed and alarms, visiting hours, pain management, procedures, bathroom and other care routines, personal items, smoking policy, room service/diet, and visiting hours. Information on how to activate the Rapid Response Team has been discussed. Patient/Family are encouraged to report perceived risks to care and to ask questions if they do not understand what they are told or what they should do.
[2022-11-29 16:44] LABS: Glucose Point of Care 162 mg/dl (65-105)
[2022-11-30] VITALS (13 sets, daily range): BP systolic 96–110; BP diastolic 58–63; PULSE 79–106; RESP 16–20; TEMP 36.3–36.6; O2SAT 95–99
[2022-11-30] MEDS: ACETAMINOPHEN 500 MG TABLET PO ×2 (00:04→21:30)
[2022-11-30] MEDS: diphenhydrAMINE HCl CAP 25 MG CAPSULE PO ×2 (00:04→21:31)
[2022-11-30] MEDS: ONDANSETRON INJ 4 MG/2 ML VIAL IV PUSH (00:05)
[2022-11-30] MEDS: IPRATROPIUM BR 0.02% INH SOLN 0.5 MG/2.5 ML VIAL INHALATION ×2 (02:52→09:36)
[2022-11-30] MEDS: ALBUTEROL SULFATE NEB 2.5 MG/3 ML INH INHALATION ×2 (02:52→09:36)
[2022-11-30 05:12] LABS: Hematocrit 31.5 % (37.0-47.0); Hemoglobin 10.2 g/dL (12.0-15.0); Mean Corpuscular HGB Conc 32.4 g/dl (32-36); Mean Corpuscular Hemoglobin 30.8 pg (26-34); Mean Corpuscular Volume 95.2 fl (80-100); Mean Platelet Volume 9.2 fl (7.4-10.4); Platelet Count Result 184 k/mm3 (150-375); Red Blood Count 3.31 M/mm3 (4.2-5.4); Red Cell Distribution Width 13.1 % (11.5-14.5); White Blood Count 8.7 K/mm3 (4.5-10.0)
[2022-11-30] MEDS: methylPREDNISolone SOD SUCC 125 MG VIAL 60 MG IV PUSH ×3 (05:20→18:03)
[2022-11-30 05:23] LABS: Anion Gap 3 mmol/L (8-16); Blood Urea Nitrogen 23 mg/dL (7-17); Calcium 6.5 mg/dL (8.4-10.2); Carbon Dioxide 25 mmol/L (22-30); Chloride 107 mmol/L (98-107); Estimated CRCL calculation 50 ml/min; Estimated Glomerular Filt Rate > 60; Glucose 111 mg/dL (65-110); Magnesium 1.8 mg/dL (1.6-2.3); Sodium 135 mmol/L (137-145)
[2022-11-30] MEDS: ENOXAPARIN 40 MG/0.4 ML SYRINGE SUB-Q (08:42)
[2022-11-30] MEDS: CHOLECALCIFEROL 1,000 UNITS TABLET 2000 UNITS PO (08:43)
[2022-11-30] MEDS: SERTRALINE HCL 50 MG TABLET PO (08:44)
[2022-11-30] MEDS: PANTOPRAZOLE 40 MG TABLET PO ×2 (08:44→21:37)
[2022-11-30] MEDS: FLUTICASONE PROPIONATE 0.05% NA SPR 16 GM BTL (*BKC) 2 SPRAY NASAL (08:44)
[2022-11-30] MEDS: SODIUM CHLORIDE 0.9% IV 1,000 ML 125 ML IV CONT ×2 (08:45→18:03)
[2022-11-30] MEDS: FLUTICASONE/SALMETEROL 115-21 MCG INHALER 1 PUFF 2 PUFF INHALATION (09:36)
--- NOTE | 2022-11-30 10:04 | PM.IMPN ---
Progress Note: A&P Assessment and Plan (1) Acute on chronic respiratory failure with hypoxia and hypercapnia: Code(s): J96.21 - Acute and chronic respiratory failure with hypoxia; J96.22 - Acute and chronic respiratory failure with hypercapnia Status: Acute Assessment and Plan: Likely precipitated by a viral infection on PAP therapy at night and with naps. (2) Sinus tachycardia: Code(s): R00.0 - Tachycardia, unspecified Status: Acute Assessment and Plan: Most likely related to nebulizer treatments, improved. Pulmonary embolism unlikely. (3) COPD exacerbation: Code(s): J44.1 - Chronic obstructive pulmonary disease with (acute) exacerbation Status: Acute Assessment and Plan: Continue scheduled bronchodilators and Solu-Medrol. no need of antibiotics at this time. Consult pulmonology for evaluation and management Subjective Date/time seen: 11/30/22 10:04 Saw and examined patient. Patient has the shortness breath. Patient denies chest pain, patient has severe cough. Denies fever, chest pain, and on pain, nausea vomiting diarrhea Exam Narrative: GENERAL: Pleasant, in no acute distress. Well-nourished. - EYES: EOMI. Anicteric. - HENT: Moist mucous membranes. - LUNGS: Diminished breath sounds bilaterally, some wheezing, labored breathing. - CARDIOVASCULAR: Regular rate and rhythm. No murmur. No JVD. - ABDOMEN: Soft, non-tender and non-distended. No palpable masses. - EXTREMITIES: No edema. Peripheral pulses 2+. Non-tender. - NEUROLOGIC: No focal neurological deficits. CN II-XII grossly intact. - PSYCHIATRIC: Awake, Alert and oriented x 3. Appropriate mood and affect. - SKIN: No rashes or lesions. Warm. - LYMPH: No cervical lymphadenopathy. Objective Data Vital Signs Vital Signs: Vital Signs - 24 hr 11/29/22 10:16 11/29/22 10:42 11/29/22 10:08 Temperature Pulse Rate 132 H 143 H 137 H Respiratory Rate 18 24 H Blood Pressure Pulse Oximetry 97 Oxygen Delivery Oxygen Flow Rate 11/29/22 10:15 11/29/22 10:16 11/29/22 10:31 Temperature Pulse Rate 134 H 132 H 131 H Respiratory Rate 21 H 18 19 Blood Pressure 94/67 L 96/65 L Pulse Oximetry 96 96 95 Oxygen Delivery Oxygen Flow Rate 11/29/22 10:19 11/29/22 11:19 11/29/22 11:20 Temperature Pulse Rate 130 H 129 H Respiratory Rate 24 H 22 H 25 H Blood Pressure 103/68 Pulse Oximetry 98 100 Oxygen Delivery BiPAP Oxygen Flow Rate 11/29/22 11:00 11/29/22 11:15 11/29/22 11:16 Temperature Pulse Rate 127 H 126 H 125 H Respiratory Rate 20 27 H 26 H Blood Pressure 91/63 L Pulse Oximetry 100 Oxygen Delivery Oxygen Flow Rate 11/29/22 11:37 11/29/22 12:00 11/29/22 12:45 Temperature Pulse Rate 126 H 127 H Respiratory Rate 24 H 21 H Blood Pressure 82/63 L 94/61 L Pulse Oximetry 98 99 98 Oxygen Delivery Nasal Cannula Oxygen Flow Rate 2 11/29/22 11:17 11/29/22 12:27 11/29/22 12:30 Temperature Pulse Rate 127 H 122 H 124 H Respiratory Rate 23 H 18 22 H Blood Pressure Pulse Oximetry 100 98 99 Oxygen Delivery Oxygen Flow Rate 11/29/22 12:35 11/29/22 13:27 11/29/22 13:30 Temperature Pulse Rate 123 H 116 H 117 H Respiratory Rate 20 14 18 Blood Pressure Pulse Oximetry 100 98 Oxygen Delivery Oxygen Flow Rate 11/29/22 13:31 11/29/22 13:32 11/29/22 13:50 Temperature Pulse Rate 115 H 115 H 114 H Respiratory Rate 19 20 20 Blood Pressure 90/49 L Pulse Oximetry 94 93 95 Oxygen Delivery Oxygen Flow Rate 11/29/22 14:00 11/29/22 14:15 11/29/22 14:16 Temperature Pulse Rate 111 H 111 H 111 H Respiratory Rate 14 20 20 Blood Pressure 99/57 L Pulse Oximetry 92 95 Oxygen Delivery Oxygen Flow Rate 11/29/22 13:00 11/29/22 14:17 11/29/22 14:37 Temperature Pulse Rate 111 H 110 H Respiratory Rate 22 H 18 Blood Pressure Pulse Oximetry 94 93 91 Oxygen Delivery Nasal
[2022-11-30] MEDS: DOXYCYCLINE 100 MG/NS 100 ML 100 MG/100 ML BAG IVPB ×2 (11:57→21:31)
[2022-11-30] MEDS: CYANOCOBALAMIN 1,000 MCG TABLET 1000 MCG PO (12:05)
--- NOTE | 2022-11-30 14:34 | PC.NURSE ---
This patient, Juanis Jim, was transferred to [[id number] ] on 11/30/22 at 1422. Personal belongings sent with patient. Report given to [Judi ]. Appropriate documentation sent with patient.
[2022-11-30] MEDS: OXYBUTYNIN CHLORIDE 5 MG TABLET PO (21:31)
[2022-12-01] VITALS (10 sets, daily range): BP systolic 116–131; BP diastolic 59–79; PULSE 74–87; RESP 14–27; TEMP 36.6–37.1; O2SAT 94–97
[2022-12-01] MEDS: ALPRAZolam (*CRX) 0.25 MG TABLET PO ×2 (01:07→22:14)
[2022-12-01] MEDS: SODIUM CHLORIDE 0.9% IV 1,000 ML 125 ML IV CONT ×3 (03:02→21:08)
--- NOTE | 2022-12-01 07:55 | PM.IMPN ---
Progress Note: A&P Assessment and Plan (1) Acute on chronic respiratory failure with hypoxia and hypercapnia: Code(s): J96.21 - Acute and chronic respiratory failure with hypoxia; J96.22 - Acute and chronic respiratory failure with hypercapnia Status: Acute Assessment and Plan: Resulting from COPD exacerbation Acute bacterial bronchitis superimposed viral infection on BIPAP therapy at night and with naps. Consult pulmonology (2) Sinus tachycardia: Code(s): R00.0 - Tachycardia, unspecified Status: Acute Assessment and Plan: Most likely related to nebulizer treatments, improved. Pulmonary embolism unlikely. (3) COPD exacerbation: Code(s): J44.1 - Chronic obstructive pulmonary disease with (acute) exacerbation Status: Acute Assessment and Plan: On doxycycline 100 mg q.12 hours IV, DuoNeb scheduled, albuterol nebulizer p.r.n., methylprednisolone 60 mg q.6 hours scheduled Consult pulmonology for evaluation and management Subjective Date/time seen: 12/01/22 07:55 Patient feels dyspnea is improving, need BiPAP during the night there are no new issue overnight. Patient denies chest pain, exam pain, nausea vomiting diarrhea headache Exam Narrative: GENERAL: Pleasant, in no acute distress. Well-nourished. - EYES: EOMI. Anicteric. - HENT: Moist mucous membranes. - LUNGS: Diminished breath sounds bilaterally, some wheezing, labored breathing. - CARDIOVASCULAR: Regular rate and rhythm. No murmur. No JVD. - ABDOMEN: Soft, non-tender and non-distended. No palpable masses. - EXTREMITIES: No edema. Peripheral pulses 2+. Non-tender. - NEUROLOGIC: No focal neurological deficits. CN II-XII grossly intact. - PSYCHIATRIC: Awake, Alert and oriented x 3. Appropriate mood and affect. - SKIN: No rashes or lesions. Warm. - LYMPH: No cervical lymphadenopathy. Const: Other: Thin, chronically ill-appearing female sitting up in bed. She is in no acute distress. Weight: 41.2 kilograms. BMI: 17.7. HENMT: Other: Normocephalic, atraumatic. Tacky mucous membranes. Oropharynx is clear. Eyes: Other: Pupils are reactive. Extraocular motions intact. Sclerae anicteric. Neck: Other: Supple. No JVD. Resp: Other: Respirations are nonlabored and she is speaking in full sentences. Lung sounds are diminished throughout. Cardio: Other: Regular rate rhythm with normal S1-S2. GI: Other: Abdomen is soft, flat, nontender, and nondistended with positive bowel sounds. Skin: Other: Warm and dry. No rash or lesion on limited exam. Neuro: Other: Alert. Cranial nerves 2-12 are grossly intact. No gross focal deficits to casual conversation. Extrem: Other: No cyanosis, clubbing, or edema. Peripheral pulses intact. Psych: Other: Pleasant and cooperative. Appropriate mood and affect. Objective Data Vital Signs Vital Signs: Vital Signs - 24 hr 11/30/22 08:00 11/30/22 08:00 11/30/22 10:00 Temperature 97.6 F Pulse Rate 86 87 106 H Respiratory Rate 18 Blood Pressure 109/63 Pulse Oximetry 98 Oxygen Delivery Oxygen Flow Rate 11/30/22 12:00 11/30/22 09:36 11/30/22 09:36 Temperature Pulse Rate 103 H 87 87 Respiratory Rate 20 20 Blood Pressure Pulse Oximetry 97 Oxygen Delivery Nasal Cannula Oxygen Flow Rate 2 11/30/22 09:53 11/30/22 14:51 11/30/22 15:58 Temperature 97.7 F 97.8 F Pulse Rate 87 97 94 Respiratory Rate 20 20 20 Blood Pressure 108/61 110/61 Pulse Oximetry 99 96 Oxygen Delivery Oxygen Flow Rate 11/30/22 20:00 12/01/22 00:16 12/01/22 00:00 Temperature 97.9 F Pulse Rate 87 80 Respiratory Rate 27 H 18 Blood Pressure 116/59 L Pulse Oximetry 95 96 97 Oxygen Delivery Nasal Cannula BiPAP Oxygen Flow Rate 2 12/01/22 01:16 12/01/22 06:00 Temperature 98 F Pulse Rate 81 Respiratory Rate 27 H 18 Blood Pressure 118/60 Pulse Oximetry 94 Oxygen Delivery BiPAP Oxygen Flow Rate Intake/Out
[2022-12-01] MEDS: FLUTICASONE/SALMETEROL 115-21 MCG INHALER 1 PUFF 2 PUFF INHALATION ×2 (08:29→20:48)
[2022-12-01] MEDS: CHOLECALCIFEROL 1,000 UNITS TABLET 2000 UNITS PO (08:44)
[2022-12-01] MEDS: CYANOCOBALAMIN 1,000 MCG TABLET 1000 MCG PO (08:44)
[2022-12-01] MEDS: PANTOPRAZOLE 40 MG TABLET PO ×2 (08:44→21:13)
[2022-12-01] MEDS: SERTRALINE HCL 50 MG TABLET PO (08:44)
[2022-12-01] MEDS: DOXYCYCLINE 100 MG/NS 100 ML 100 MG/100 ML BAG IVPB ×2 (08:45→21:08)
[2022-12-01] MEDS: ENOXAPARIN 40 MG/0.4 ML SYRINGE SUB-Q (08:45)
[2022-12-01] MEDS: UMECLIDINIUM BROMIDE 62.5 MCG ELLIPTA 1 PUFF INHALATION (11:02)
[2022-12-01] MEDS: methylPREDNISolone SOD SUCC 125 MG VIAL 60 MG IV PUSH ×2 (11:34→17:14)
--- NOTE | 2022-12-01 15:24 | PM.CNPUL ---
Assessment and Plan Assessment and plan (1) Acute on chronic respiratory failure with hypoxia and hypercapnia: Code(s): J96.21 - Acute and chronic respiratory failure with hypoxia; J96.22 - Acute and chronic respiratory failure with hypercapnia Status: Acute Assessment and Plan: She has a long history of severe emphysema, admitted Nov 29 with increased hypercapnia & worsening hypoxemia; she attributes some of her deterioration to dysfunction of her Trilogy machine. For the last 2 almost 3 weeks she has had difficulty with adequate pressures. She reports excessive pressures with inability to use the device. During this time she has also had gastrointestinal problems with nausea vomiting and suspected aspiration. While she was having nausea and vomiting she has not use the trilogy device. She feels better in the hospital, today is hospital day 3. She is not febrile, she is at her baseline O2 use 2 L/min with saturation 96-97%, compliance from : 03/29/22 - 06/26/22 = AVAPS AE, TV 350 ml, maximum pressure 22 cm, pressure support max 14 cm, minimum pressure support 6 cm EPAP maximum 8 cm, EPAP minimum 5 cm, automatic breath rate, rise time 6. 09/28/22 - 11/21/22=AVAPS AE, TV 400ml, maximum pressure 25 cm, pressure support max 14 cm, pressure support min 6 cm, EPAP max pressure 10 cm, EPAP min pressure 5 cm, auto breat hrate, rise time 6. Average usage is 7 hour 42 min, 98% of the days > 4 hours usage. Will contact by [email or web address] tomorrow, and if her device cannot be replaced with function device we may allow [employer], her other [employer] company to take over as they also have trilogy devices. (2) COPD exacerbation: Code(s): J44.1 - Chronic obstructive pulmonary disease with (acute) exacerbation Status: Acute Assessment and Plan: Not sure that she is actually having COPD exacerbation; may be mainly due to Trilogy dysfunction. She has not had increased sputum, no increase in cough, no fever currently. She is managed at baseline with Symbicort, Spiriva, albuterol. She has no PFTs in our system. Has severe emphysema on imaging. She has declined getting lung transplant evaluation. History of Present Illness History of Present Illness Consult date: 12/02/22 Requesting physician: Cheli Humphreys MD Chief complaint: COPD Exacerbation/Acute Hypercapnic Respiratory Fa Narrative: patient was seen at 13:50, Saturday for consult. I talked with her last night briefly. NEW: Juanis Jim is a 67-year-old woman with COPD, on home O2 2-3 L/min, and using Trilogy non-invasive positive pressure ventilator for the last 3 years. Her last office visit in our pulmonary practice was July 16, 2022, was stable and no changes were made. She had COVID in May 2022. She has had fatigue for months, started B12 shots at home ordered by her wind project manager, Dr Sallie Felton, at [facility]. She also had had increased shortness of breath for weeks, and is not sure what the problem is. She tells me that she had problems with her Trilogy beginning several weeks ago, had a replacement machine delivered by [employer] on however this device had the same problem shortly after arrival. Lots of loud alarms were sounding for unclear reasons. She says that the machine blows too much air, and she cannot tolerate the pressure. She was without effective use of a non-invasive ventilator for about 2 weeks. At the same time, her family had a GI stomach flu passing through multiple people, so when she developed same symptoms including nausea, vomiting and diarrhea, she was not surprised. Her daughter suspected that she had some aspiration with vomiting. She also had dry heaves and fever. She could not wear the Trilogy while having nausea and vomiting. Prior to admission, she had confusion and a drop in her saturation to
[2022-12-01] MEDS: OXYBUTYNIN CHLORIDE 5 MG TABLET PO (21:13)
[2022-12-01] MEDS: ACETAMINOPHEN 500 MG TABLET PO (22:14)
[2022-12-01] MEDS: diphenhydrAMINE HCl CAP 25 MG CAPSULE PO (22:15)
[2022-12-02] VITALS (7 sets, daily range): BP systolic 122–143; BP diastolic 64–77; PULSE 58–88; RESP 14–19; TEMP 36.2–36.8; O2SAT 96–99
[2022-12-02] MEDS: methylPREDNISolone SOD SUCC 125 MG VIAL 60 MG IV PUSH ×4 (00:40→16:55)
[2022-12-02] MEDS: SODIUM CHLORIDE 0.9% IV 1,000 ML 125 ML IV CONT (06:14)
[2022-12-02 06:31] LABS: Hematocrit 29.5 % (37.0-47.0); Hemoglobin 9.6 g/dL (12.0-15.0); Mean Corpuscular HGB Conc 32.5 g/dl (32-36); Mean Corpuscular Hemoglobin 30.5 pg (26-34); Mean Corpuscular Volume 93.7 fl (80-100); Mean Platelet Volume 9.2 fl (7.4-10.4); Platelet Count Result 177 k/mm3 (150-375); Red Blood Count 3.15 M/mm3 (4.2-5.4); Red Cell Distribution Width 13.5 % (11.5-14.5); White Blood Count 5.3 K/mm3 (4.5-10.0)
[2022-12-02 07:01] LABS: Anion Gap 0 mmol/L (8-16); Blood Urea Nitrogen 16 mg/dL (7-17); Calcium 6.8 mg/dL (8.4-10.2); Carbon Dioxide 29 mmol/L (22-30); Chloride 109 mmol/L (98-107); Estimated CRCL calculation 51 ml/min; Estimated Glomerular Filt Rate > 60; Glucose 117 mg/dL (65-110); Potassium 3.7 mmol/L (3.4-5.0); Sodium 138 mmol/L (137-145)
[2022-12-02] MEDS: ENOXAPARIN 40 MG/0.4 ML SYRINGE SUB-Q (08:52)
[2022-12-02] MEDS: CYANOCOBALAMIN 1,000 MCG TABLET 1000 MCG PO (08:53)
[2022-12-02] MEDS: CHOLECALCIFEROL 1,000 UNITS TABLET 2000 UNITS PO (08:53)
[2022-12-02] MEDS: DOXYCYCLINE 100 MG/NS 100 ML 100 MG/100 ML BAG IVPB ×2 (08:53→20:56)
[2022-12-02] MEDS: SERTRALINE HCL 50 MG TABLET PO (08:53)
[2022-12-02] MEDS: PANTOPRAZOLE 40 MG TABLET PO ×2 (08:54→20:56)
[2022-12-02] MEDS: FLUTICASONE/SALMETEROL 115-21 MCG INHALER 1 PUFF 2 PUFF INHALATION ×2 (10:36→20:29)
[2022-12-02] MEDS: UMECLIDINIUM BROMIDE 62.5 MCG ELLIPTA 1 PUFF INHALATION (10:36)
[2022-12-02] MEDS: ALBUTEROL SULFATE NEB 2.5 MG/3 ML INH INHALATION (10:36)
--- NOTE | 2022-12-02 17:22 | PM.IMPN ---
Progress Note: A&P Assessment and Plan (1) Acute on chronic respiratory failure with hypoxia and hypercapnia: Code(s): J96.21 - Acute and chronic respiratory failure with hypoxia; J96.22 - Acute and chronic respiratory failure with hypercapnia Status: Acute Assessment and Plan: Resulting from COPD exacerbation Acute bacterial bronchitis superimposed viral infection on BIPAP therapy at night and with naps. Consult pulmonology, appreciate stove refinisher consultation Hopefully patient will be discharged home tomorrow if patient's home trilogy can be fixed (2) Sinus tachycardia: Code(s): R00.0 - Tachycardia, unspecified Status: Acute Assessment and Plan: Most likely related to nebulizer treatments, improved. Pulmonary embolism unlikely. (3) COPD exacerbation: Code(s): J44.1 - Chronic obstructive pulmonary disease with (acute) exacerbation Status: Acute Assessment and Plan: On doxycycline 100 mg q.12 hours IV, DuoNeb scheduled, albuterol nebulizer p.r.n., methylprednisolone 60 mg q.6 hours scheduled Consult pulmonology for evaluation and management Subjective Date/time seen: 12/02/22 17:22 I saw examined patient today. The patient needed BiPAP during the night, patient needs 2 liter/minutes oxygen during the day. Has mild cough, no phlegm Exam Const: Other: Thin, chronically ill-appearing female sitting up in bed. She is in no acute distress. Weight: 41.2 kilograms. BMI: 17.7. HENMT: Other: Normocephalic, atraumatic. Tacky mucous membranes. Oropharynx is clear. Eyes: Other: Pupils are reactive. Extraocular motions intact. Sclerae anicteric. Neck: Other: Supple. No JVD. Resp: Other: Respirations are nonlabored and she is speaking in full sentences. Lung sounds are diminished throughout. Cardio: Other: Regular rate rhythm with normal S1-S2. GI: Other: Abdomen is soft, flat, nontender, and nondistended with positive bowel sounds. Skin: Other: Warm and dry. No rash or lesion on limited exam. Neuro: Other: Alert. Cranial nerves 2-12 are grossly intact. No gross focal deficits to casual conversation. Extrem: Other: No cyanosis, clubbing, or edema. Peripheral pulses intact. Psych: Other: Pleasant and cooperative. Appropriate mood and affect. Objective Data Vital Signs Vital Signs: Vital Signs - 24 hr 12/01/22 20:50 12/01/22 23:10 12/01/22 22:00 Temperature 98.7 F Pulse Rate 77 80 74 Respiratory Rate 14 19 18 Blood Pressure 131/79 Pulse Oximetry 97 97 Oxygen Delivery BiPAP Oxygen Flow Rate 12/01/22 20:00 12/02/22 06:00 12/02/22 08:00 Temperature 97.1 F L Pulse Rate 58 L Respiratory Rate 19 Blood Pressure 122/64 Pulse Oximetry 99 98 Oxygen Delivery Room Air Nasal Cannula Oxygen Flow Rate 2 12/02/22 10:36 12/02/22 10:39 12/02/22 14:35 Temperature 98.2 F Pulse Rate 79 77 88 Respiratory Rate 16 14 16 Blood Pressure 143/77 H Pulse Oximetry 96 Oxygen Delivery Oxygen Flow Rate Intake/Output Intake/Output: Intake & Output 11/29/22 11/30/22 12/01/22 12/02/22 23:59 23:59 23:59 23:59 Intake Total 2120 3894 4570 1580 Output Total 0 800 Balance 2120 3094 4570 1580 Meds/Results Medications: Active Medications Generic Name Dose Route Start Last Admin Trade Name Freq PRN Reason Stop Dose Admin Acetaminophen 500 mg 11/29/22 23:25 12/01/22 22:14 Acetaminophen 500 Mg Tablet PO 500 mg HS PRN Administration Insomnia Albuterol 2.5 mg 11/30/22 02:00 12/02/22 15:54 Albuterol Sulfate Neb 2.5 Mg/3 Ml Inh INHALATION Not Given Q6HRT ZARINA Alprazolam 0.25 mg 11/29/22 23:01 12/01/22 22:14 Alprazolam (*Crx) 0.25 Mg Tablet PO 0.25 mg BID PRN Administration anxiety Cyanocobalamin 1,000 mcg 11/30/22 09:00 12/02/22 08:53 Cyanocobalamin 1,000 Mcg Tablet PO 12/30/22 08:59 1,000 mcg DAILY ZARINA Administration Diphenhydramine HC
[2022-12-02] MEDS: OXYBUTYNIN CHLORIDE 5 MG TABLET PO (20:56)
[2022-12-02] MEDS: ALPRAZolam (*CRX) 0.25 MG TABLET PO (22:27)
[2022-12-02] MEDS: diphenhydrAMINE HCl CAP 25 MG CAPSULE PO (22:27)
[2022-12-02] MEDS: ACETAMINOPHEN 500 MG TABLET PO (22:27)
[2022-12-03] MEDS: methylPREDNISolone SOD SUCC 125 MG VIAL 60 MG IV PUSH ×3 (00:20→12:33)
[2022-12-03 06:00] VITALS: BP 126/56; PULSE 60; RESP 18; TEMP 36.5; O2SAT 98
[2022-12-03 08:00] VITALS: O2SAT 93
[2022-12-03] MEDS: FLUTICASONE/SALMETEROL 115-21 MCG INHALER 1 PUFF 2 PUFF INHALATION (08:33)
[2022-12-03] MEDS: UMECLIDINIUM BROMIDE 62.5 MCG ELLIPTA 1 PUFF INHALATION (08:33)
[2022-12-03 08:38] VITALS: O2SAT 93
[2022-12-03] MEDS: PANTOPRAZOLE 40 MG TABLET PO (08:42)
[2022-12-03] MEDS: DOXYCYCLINE 100 MG/NS 100 ML 100 MG/100 ML BAG IVPB (08:42)
[2022-12-03] MEDS: CYANOCOBALAMIN 1,000 MCG TABLET 1000 MCG PO (08:42)
[2022-12-03] MEDS: SERTRALINE HCL 50 MG TABLET PO (08:42)
[2022-12-03] MEDS: CHOLECALCIFEROL 1,000 UNITS TABLET 2000 UNITS PO (08:42)
[2022-12-03] MEDS: FLUTICASONE PROPIONATE 0.05% NA SPR 16 GM BTL (*BKC) 2 SPRAY NASAL (08:42)
[2022-12-03] MEDS: IPRATROPIUM NASAL SPRAY 0.06% 15 ML BOTTLE 2 SPRAY NASAL (08:42)
[2022-12-03] MEDS: ENOXAPARIN 40 MG/0.4 ML SYRINGE SUB-Q (08:42)
[2022-12-03 10:56] LABS: Hemoglobin 11.5 g/dL (12.0-15.0); Immature Granulocyte Absolute 0.04 K/mm3 (0.00-0.031); Immature Granulocyte Percent A 0.7 % (0-0.5); Lymphocytes Absolute Auto 0.29 K/mm3 (0.9-3.2); Mean Corpuscular HGB Conc 32.9 g/dl (32-36); Mean Corpuscular Hemoglobin 31.3 pg (26-34); Mean Corpuscular Volume 95.1 fl (80-100); Mean Platelet Volume 9.3 fl (7.4-10.4); Monocytes Absolute Auto 0.3 K/mm3 (0.1-0.6); Monocytes Percent Auto 4.3 % (2.6-8.5); Neutrophils Absolute Auto 5.2 K/mm3 (1.3-6.7); Platelet Count Result 225 k/mm3 (150-375); Red Blood Count 3.68 M/mm3 (4.2-5.4); Red Cell Distribution Width 13.2 % (11.5-14.5); White Blood Count 5.8 K/mm3 (4.5-10.0)
[2022-12-03 11:04] LABS: Anion Gap 4 mmol/L (8-16); Blood Urea Nitrogen 14 mg/dL (7-17); Calcium 8.2 mg/dL (8.4-10.2); Carbon Dioxide 34 mmol/L (22-30); Chloride 99 mmol/L (98-107); Estimated CRCL calculation 51 ml/min; Estimated Glomerular Filt Rate > 60; Glucose 159 mg/dL (65-110); Potassium 2.9 mmol/L (3.4-5.0); Sodium 137 mmol/L (137-145)
--- NOTE | 2022-12-03 11:27 | PM.PNPUL ---
Progress Note: A&P Assessment and Plan (1) COPD exacerbation: Code(s): J44.1 - Chronic obstructive pulmonary disease with (acute) exacerbation Status: Acute Assessment and Plan: Patient is currently back to her baseline and has received 5 days of Solu-Medrol, today is day 4 of doxycycline antibiotics. She has no wheezing and states that she is breathing back at her baseline and is ready for discharge today for home trilogy can be arranged. Patient should be discharged on these pulmonary medications Symbicort 160-4.5 at 2 puffs b.i.d. Spiriva Handy haler 18 mcg q.day Rescue albuterol 2 puffs q.4 hours p.r.n. shortness of breath or wheezing 2 L oxygen with rest, ambulation and at night. When she naps or sleeps noninvasive ventilator with the AVAPS mode: AVAPS AE, TV?400ml, maximum pressure?25 cm, pressure support max 14 cm, pressure support min 6 cm,?EPAP max pressure 10 cm, EPAP min pressure 5 cm, auto breath rate, rise time 6 and 2 L bleed in. follow-up in Pulmonary Clinic in 3-4 weeks. (2) Acute on chronic respiratory failure with hypoxia and hypercapnia: Code(s): J96.21 - Acute and chronic respiratory failure with hypoxia; J96.22 - Acute and chronic respiratory failure with hypercapnia Status: Acute Assessment and Plan: She has a long history of severe emphysema, admitted Nov 29 with increased hypercapnia & worsening hypoxemia; she attributes some of her deterioration to? dysfunction of her Trilogy machine.? For the last 2 almost 3 weeks she has had difficulty with adequate pressures.? She reports excessive pressures with inability to use the device.? During this time she has also had gastrointestinal problems with nausea vomiting and suspected aspiration.? While she was having nausea and vomiting she has not use the trilogy device. ? She feels better in the hospital, today is hospital day 3. She is not febrile, she is at her baseline O2 use 2 L/min with saturation 96-97%, compliance from : 03/29/22 - 06/26/22 = AVAPS AE,? TV??350 ml, maximum pressure?22 cm, pressure support max 14 cm, minimum pressure support 6 cm?EPAP maximum 8 cm, EPAP minimum 5 cm, automatic breath rate, rise time 6. 09/28/22 - 11/21/22=AVAPS AE, TV?400ml, maximum pressure?25 cm, pressure support max 14 cm, pressure support min 6 cm,?EPAP max pressure 10 cm, EPAP min pressure 5 cm, auto breath rate, rise time 6. Average usage is 7 hour 42 min, 98% of the days > 4 hours usage. Will contact by [employer] tomorrow, and if her device cannot be replaced with function device we may allow [employer] her other [employer] company to take over as they also have trilogy devices. 12/03 patient tells me she has contacted her [employer], RT named Clover, who will have a working trilogy blankbook stitching machine operator at home. We are working to verify this information And once this is verified the patient is ready for discharge from a pulmonary perspective. I have called the pulmonary coordinator who will reach out to via [employer] and confirm that working machine can be delivered to her house today. Settings: AVAPS AE, TV?400ml, maximum pressure?25 cm, pressure support max 14 cm, pressure support min 6 cm,?EPAP max pressure 10 cm, EPAP min pressure 5 cm, auto breath rate, rise time 6. Subjective Date/time seen: 12/03/22 11:27 Interval history: Consult date: 12/02/22 Requesting physician: Cheli Humphreys MD Chief complaint: COPD Exacerbation/Acute Hypercapnic Respiratory Fa Narrative: patient was seen at 13:50, Saturday for consult. I talked with her last night briefly. NEW: Juanis Jim is a 67-year-old woman with COPD, on home O2 2-3 L/min, and using Trilogy non-invasive positive pressure ventilator for the last 3 years. Her last office visit in our pulmonary practice was July 16, 2022, was stable and no changes were made.? She had COVID in May 2022. She has had fatigue for months, started B12 shots at home ordered by her minister, Dr Sallie Felton, at [facility], [place]
--- NOTE | 2022-12-03 11:58 | PM.DS ---
DS: Summary Time Spent with Patient Time attestation: Total time spent providing and/or coordinating discharge services: DS: Data Data Completed and Pending Labs on day of discharge: Labs from last 24 hours 12/03/22 12/03/22 10:47 10:47 WBC 5.8 RBC 3.68 L Hgb 11.5 L Hct 35.0 L MCV 95.1 MCH 31.3 MCHC 32.9 RDW 13.2 Plt Count 225 MPV 9.3 Immature Gran % (Auto) 0.7 H Neut % (Auto) 90.0 H Lymph % (Auto) 5.0 L Burnett % (Auto) 4.3 Eos % (Auto) 0.0 Baso % (Auto) 0.0 L Lymph # (Auto) 0.29 L Burnett # (Auto) 0.3 Eos # (Auto) 0.0 Baso # (Auto) 0.0 Abs Immat Gran (auto) 0.04 H Absolute Neuts (auto) 5.2 Absolute Nucleated RBC 0.0 Nucleated RBC % 0.0 Sodium 137 Potassium 2.9 L Chloride 99 Carbon Dioxide 34 H Anion Gap 4 L BUN 14 Creatinine 0.60 L Estim Creat Clear Calc 51 Estimated GFR > 60 Glucose 159 H Calcium 8.2 L Magnesium 2.0 Preliminary micro results at discharge 11/29/22 09:49 Blood Culture - Preliminary Blood 11/29/22 09:49 Blood Culture - Preliminary Blood Discharge Plan Discharge Attending physician on discharge: Rin Davies Consulting providers: Marii Sanz Discharging Clinician: Rin Davies Anticipated Discharge Date/Time: 12/03/22 16:00 Patient Disposition: Home, Self-Care Activity: as tolerated Diet: as tolerated Discharge Instructions: 2 L oxygen with rest, ambulation and at night. When she naps or sleeps noninvasive ventilator with the AVAPS mode: AVAPS AE, TV?400ml, maximum pressure?25 cm, pressure support max 14 cm, pressure support min 6 cm,?EPAP max pressure 10 cm, EPAP min pressure 5 cm, auto breath rate, rise time 6 and 2 L bleed in. Patient Instructions: Antibiotic Form, Acute Bronchitis (GEN), COPD (Chronic Obstructive Pulmonary Disease) (GEN) Stand Alone Forms: General Discharge Information Follow-up/Referrals: Marii Sanz MD [Physician] - 4 Weeks Discharge Medications: Continued prochlorperazine maleate [Compazine] 5 mg tablet 5 mg PO Q8H PRN (Reason: nausea and vomiting) Qty: 14 0RF Rx Instructions: Do not take Zofran while taking this medication. meclizine 25 mg tablet 25 mg PO TID PRN (Reason: Dizziness) Qty: 14 0RF sertraline 50 mg tablet 50 mg PO DAILY Qty: 30 3RF diphenhydramine-acetaminophen [Tylenol PM Extra Strength] 25-500 mg Tablet 1 tablet PO HS PRN (Reason: Insomnia) mecobalamin (vitamin B12) 1,000 mcg Tablet,Disintegrating 1,000 mcg PO DAILY Vitamin D3 2,000 mg PO DAILY ondansetron HCl 4 mg tablet 4 mg PO DAILY PRN (Reason: Nausea) Rx Instructions: TAKE 1 TABLET BY MOUTH DAILY NEEDED FOR NAUSEA AND VOMITING alendronate 70 mg tablet 70 mg PO WEEKLY Rx Instructions: TAKE 1 TABLET BY MOUTH WEEKLY ON SUNDAYS prednisone 5 mg tablet 5 mg PO DAILY Rx Instructions: TAKE 1 TABLET BY MOUTH DAILY WITH 1MG TABLETS TO EQUAL 6MG DAILY esomeprazole magnesium 40 mg capsule,delayed release(DR/EC) 40 mg PO BID Rx Instructions: TAKE 1 CAPSULE BY MOUTH TWICE DAILY ipratropium bromide 42 mcg (0.06 %) spray,non-aerosol 2 spray intranasal QID PRN (Reason: congestion) Rx Instructions: administer into each nostril oxybutynin chloride 5 mg tablet 5 mg PO HS fluticasone propionate [Flonase Allergy Relief] 50 mcg/actuation spray,suspension 2 spray intranasal DAILY PRN (Reason: Allergy Symptoms) Rx Instructions: administer into each nostril budesonide-formoterol [Symbicort] 160-4.5 mcg/actuation HFA aerosol inhaler 2 puff inhalation BID Rx Instructions: USE 2 INHALATIONS BY MOUTH EVERY 12 HOURS Spiriva with HandiHaler 18 mcg capsule, w/inhalation device See Rx Instructions .ROUTE .COMPLEX Qty: 90 3RF Dose Instruction: INHALE 2 INHALATIONS FROM THE CONTENTS OF 1 CAPSULE BY MOUTH VIA HANDIHALER ONCE RUBIN
[2022-12-03] MEDS: POTASSIUM CHLORIDE 20 MEQ TABLET 40 MEQ PO ×2 (12:32→14:26)
--- NOTE | 2022-12-03 13:20 | PM.DS ---
DS: Admitting Diagnosis Discharge Date 12/03/2022 Admitting Diagnosis Acute on Chronic Resp Failure with Hypoxia and Hypercapnia DS: Discharge Diagnosis Discharge Diagnosis (1) COPD exacerbation: Code(s): J44.1 - Chronic obstructive pulmonary disease with (acute) exacerbation Status: Acute (2) Sinus tachycardia: Code(s): R00.0 - Tachycardia, unspecified Status: Acute (3) Acute on chronic respiratory failure with hypoxia and hypercapnia: Code(s): J96.21 - Acute and chronic respiratory failure with hypoxia; J96.22 - Acute and chronic respiratory failure with hypercapnia Status: Acute DS: Summary Hospital Course Reason for hospitalization: Shortness of Breath Hospital Course: ?67-year-old female with severe COPD with emphysema by PFTs in 2017 and chronic respiratory failure on 2 liters during the day as needed and trilogy unit at nighttime who presented to the emergency department via EMS from home for evaluation of shortness of breath.. She tested negative for influenza and COVID. Chest x-ray showed emphysema without evidence of infiltrate or edema.Pulmonary was consulted. her symptoms were also attributed to trilogy machine dysfunction. She was treated with O2 support, bronchodilators, meanwhile her trilogy machine dysfunction was taken care of. Discharged home in stable condition with advice to follow up with pulmonary in 3-4 weeks Status at Discharge Functional status at discharge: independent ambulation Overall status at discharge: patient is back to baseline Time Spent with Patient Time attestation: Total time spent providing and/or coordinating discharge services: Time spent: Greater than 30 minutes Exam Const: General: comfortable HENMT: Mouth: Yes moist mucous membranes Eyes: Sclera: sclerae normal Neck: Neck: supple Resp: Effort & Inspection: normal respiratory effort Auscultation: diminished lung sounds Cardio: Rate: regular rate Rhythm: regular rhythm GI: GI Palp: Yes Soft to palpation Auscultation: normal bowel sounds Neuro: Motor exam (neuro): 5/5 motor strength present throughout Extrem: General: normal to inspection Psych: Mental Status: mental status grossly normal DS: Data Data Completed and Pending Labs on day of discharge: Labs from last 24 hours 12/03/22 12/03/22 10:47 10:47 WBC 5.8 RBC 3.68 L Hgb 11.5 L Hct 35.0 L MCV 95.1 MCH 31.3 MCHC 32.9 RDW 13.2 Plt Count 225 MPV 9.3 Immature Gran % (Auto) 0.7 H Neut % (Auto) 90.0 H Lymph % (Auto) 5.0 L Lincoln % (Auto) 4.3 Eos % (Auto) 0.0 Baso % (Auto) 0.0 L Lymph # (Auto) 0.29 L Lincoln # (Auto) 0.3 Eos # (Auto) 0.0 Baso # (Auto) 0.0 Abs Immat Gran (auto) 0.04 H Absolute Neuts (auto) 5.2 Absolute Nucleated RBC 0.0 Nucleated RBC % 0.0 Sodium 137 Potassium 2.9 L Chloride 99 Carbon Dioxide 34 H Anion Gap 4 L BUN 14 Creatinine 0.60 L Estim Creat Clear Calc 51 Estimated GFR > 60 Glucose 159 H Calcium 8.2 L Magnesium 2.0 Preliminary micro results at discharge 11/29/22 09:49 Blood Culture - Preliminary Blood 11/29/22 09:49 Blood Culture - Preliminary Blood Discharge Plan Discharge Attending physician on discharge: Rin Davies Consulting providers: Marii Sanz Discharging Clinician: Rin Davies Anticipated Discharge Date/Time: 12/03/22 16:00 Patient Disposition: Home, Self-Care Activity: as tolerated Diet: as tolerated Discharge Instructions: 2 L oxygen with rest, ambulation and at night. When she naps or sleeps noninvasive ventilator with the AVAPS mode: AVAPS AE, TV?400ml, maximum pressure?25 cm, pressure support max 14 cm, pressure support min 6 cm,?EPAP max pressure 10 cm, EPAP min pressure 5 cm, auto breath rate, rise time 6 and 2 L bleed in. Patient Instructions: Antibiotic Form, Acute Bronchitis (GEN), COPD (Chronic Obstructive Pulmonary Disease) (GEN) Stand Alone
[2022-12-03 14:00] VITALS: BP 141/70; PULSE 74; RESP 18; TEMP 36.3; O2SAT 99
[2022-12-03] MEDS: POTASSIUM CHLORIDE 20 MEQ TABLET PO (15:05)
== END 2022-12-03 15:05 | disposition home or self-care (01) | DRG 189 ==
LOC: ANHED 12:43 → ANHIMU 15:05 → ANH3MEDSUR 11-30 14:13
PROVIDERS: Hospitalist; Physician Assistant; Admitting Provider Family Medicine; Emergency Provider Emergency Medicine; PCP Internal Medicine; Visit Provider Internal Medicine
DX: J96.21 Acute and chronic respiratory failure with hypoxia (principal); A09 Infectious gastroenteritis and colitis, unspecified; J95.850 Mechanical complication of respirator; J96.22 Acute and chronic respiratory failure with hypercapnia; J43.9 Emphysema, unspecified; B34.9 Viral infection, unspecified; M75.02 Adhesive capsulitis of left shoulder; R00.0 Tachycardia, unspecified; Z20.822 Contact with and (suspected) exposure to COVID-19; M19.90 Unspecified osteoarthritis, unspecified site; T17.918A Gastric contents in respiratory tract, part unspecified causing other injury, initial encounter; F41.9 Anxiety disorder, unspecified; K21.9 Gastro-esophageal reflux disease without esophagitis; M81.0 Age-related osteoporosis without current pathological fracture; E53.8 Deficiency of other specified B group vitamins; E55.9 Vitamin D deficiency, unspecified; Z90.49 Acquired absence of other specified parts of digestive tract; Z86.711 Personal history of pulmonary embolism; Z87.891 Personal history of nicotine dependence; Z99.81 Dependence on supplemental oxygen; Z86.16 Personal history of COVID-19; Z79.52 Long term (current) use of systemic steroids
CPT/HCPCS: 36415; 36600; 71045; 80048; 80053; 82805; 82948; 83735; 83880; 84484; 85025; 85027; 85610; 85730; 87040; 87636; 93005; 94002; 94003; 94640; 96361; 96374; 99285; A9270; G0378; J1650; J2405; J2930; J7030

== ENCOUNTER 2022-12-05 10:22 | Outpatient (CLI) | payer MEDICARE, MEDICAID, SELFPAY ==
[2022-12-05 11:00] LABS: Blood Urea Nitrogen 17 mg/dL (7-17); Calcium 8.7 mg/dL (8.4-10.2); Carbon Dioxide > 40 mmol/L (22-30); Chloride 95 mmol/L (98-107); Estimated Glomerular Filt Rate > 60; Glucose 90 mg/dL (65-110); Potassium 3.9 mmol/L (3.4-5.0); Sodium 140 mmol/L (137-145)
== END 2022-12-05 10:23 | disposition home or self-care (01) ==
PROVIDERS: PCP Internal Medicine; Visit Provider Clinical Nurse Specialist
DX: E87.6 Hypokalemia (principal)
CPT/HCPCS: 36415; 80048

== ENCOUNTER 2023-01-02 10:08 | Outpatient (CLI) | payer MEDICARE, MEDICAID, SELFPAY ==
[2023-01-02] VITALS (7 sets, daily range): PULSE 88–100; O2SAT 85–95
--- NOTE | ~2023-01-02 | CT_ITS ---
EXAMINATION: CT lung screening DATE: 01/02/2023 11:36 INDICATION: Personal history of nicotine dependence, prior smoker with 40 pack year history TECHNIQUE: Computed tomography (CT) of the chest was performed without intravenous contrast. The dose -length product (DLP) was 59.29 mGy-cm. Automated exposure control and iterative reconstruction techn SpongeFishue were employed. COMPARISON: 09/10/2021 FINDINGS: There is moderate emphysema. There is a 2 mm nodule of the right lower lobe. There is a 2 m m nodule of the left upper lobe. There is a 4 mm nodule in the medial aspect of the left lower lobe o n image 52. There are small low density masses along the anterior wall of the distal trachea, possibl y mucus. No pathologically enlarged thoracic lymph nodes are identified. The heart size is normal. Th ere are small bilateral posterior diaphragmatic hernias containing fat. Severe cervical spondylosis i s noted. There is mild thoracic spondylosis. IMPRESSION: 1. Lung-RADS category 3: Probably benign. Followup with noncontrast low-dose chest CT in 6 months is recommended. Reviewed, dictated and finalized at location B. ACE GRINDER IMPRESSION: 1. Lung-RADS category 3: Probably benign. Followup with noncontrast low-dose ch est CT in 6 months is recommended.
--- NOTE | 2023-01-02 10:40 | PCRCNOTE ---
HOME O2 EVAL COMPLETE. PATIENT REQUIRES ROOM AIR AT REST AND 3LPM WITH ACTIVITY. DOCTOR NOTIFIRD.
[2023-01-02 11:00] LABS: Alveolar/Arterial O2 Gradient 109.2 mmHg; Base Excess ABG 3.7 mEq/l (+/-2.0); Fractional Inspired Oxygen 32 %; HCO3 ABG 29.4 mEq/l (22.0-26.0); Oxygen Content ABG 15.3 %vol (16.0-22.0); Oxygen Saturation ABG 91.1 % (95.0-100.0); Oxyhemoglobin 90.1 % THb (90.0-100.0); PCO2 ABG 49.3 mmHg (35.0-45.0); PO2 ABG 61.3 mmHg (80.0-100.0); PO2 FiO2 Ratio Arterial Blood 1.92 %; Total Hemoglobin 12.1 g/dL (12.0-18.0); pH ABG 7.394 (7.350-7.450)
[2023-01-02 11:02] LABS: Device NASAL CANNULA; Site Drawn RIGHT BRACHIAL
--- NOTE | 2023-01-02 11:15 | HOMEO2EVAL ---
Evaluation was performed at [facility] Home Oxygen Evaluation RC: Home Oxygen (O2) Evaluation Start: 01/02/23 10:35 Freq: Status: Active Protocol: RPE Activity Type Activity Date Activity User E-sign Co-sign Detail Recorded Client Recorded Date Recorded By Document 01/02/23 10:00 [email or web address] [email or web address] 01/02/23 10:40 PKH Document 01/02/23 10:05 [email or web address] 01/02/23 10:40 PKH Document 01/02/23 10:10 [email or web address] [email or web address] 01/02/23 10:40 PKH Document 01/02/23 10:15 [email or web address] 01/02/23 10:40 PKH Document 01/02/23 10:20 [email or web address] [email or web address] 01/02/23 10:40 PKH Document 01/02/23 10:25 [email or web address] [email or web address] 01/02/23 11:14 PKH Document 01/02/23 10:35 [email or web address] [email or web address] 01/02/23 10:40 PKH 01/02/23 01/02/23 01/02/23 10:00 10:05 10:10 Home O2 Evaluation [Oxygen] -Test Phase Resting Exercise Resting -Oxygen Delivery Room Air Nasal Cannula Nasal Cannula -Oxygen Flow Rate (L/min) 1 2 [Pulse Oximetry] -Pulse Oximetry (90-100 %) 85 L 87 L 91 [Pulse Rate] -Pulse Rate (60-100 beats/min) 88 100 97 [Charges] -Treatment Charges O2 Evaluation - Outpatient 01/02/23 01/02/23 01/02/23 10:15 10:20 10:25 Home O2 Evaluation [Oxygen] -Test Phase Exercise Exercise Exercise -Oxygen Delivery Nasal Cannula Nasal Cannula Nasal Cannula -Oxygen Flow Rate (L/min) 2 2 3 [Pulse Oximetry] -Pulse Oximetry (90-100 %) 87 L 87 L 92 [Pulse Rate] -Pulse Rate (60-100 beats/min) 98 93 93 [Charges] -Treatment Charges 01/02/23 10:35 Home O2 Evaluation [Oxygen] -Test Phase Resting -Oxygen Delivery Room Air -Oxygen Flow Rate (L/min) [Pulse Oximetry] -Pulse Oximetry (90-100 %) 95 [Pulse Rate] -Pulse Rate (60-100 beats/min) 88 [Charges] -Treatment Charges
== END 2023-01-02 10:09 | disposition home or self-care (01) ==
PROVIDERS: Nurse Practitioner Family; PCP Internal Medicine; Visit Provider Internal Medicine Pulmonary Disease
DX: J96.21 Acute and chronic respiratory failure with hypoxia (principal); Z12.2 Encounter for screening for malignant neoplasm of respiratory organs; Z87.891 Personal history of nicotine dependence; R91.8 Other nonspecific abnormal finding of lung field; J96.22 Acute and chronic respiratory failure with hypercapnia
CPT/HCPCS: 36600; 71271; 82805; 94618

== ENCOUNTER 2023-08-14 12:49 | Outpatient (CLI) | payer MEDICARE, MEDICAID, SELFPAY ==
--- NOTE | ~2023-08-14 | CT_ITS ---
CT Scan of the Chest without Contrast: Clinical Indication: Pulmonary nodules Technique: Contiguous sections were acquired throughout the chest without intravenous contrast. Dose reduction technique was used on this scan by utilizing automated exposure control and iterative recon struction technique. The dose-length product (DLP) was 57.59 mGy-cm. COMPARISON: 01/02/2023, 09/10/2021 Findings: There is no evidence of any significant mediastinal, hilar or axillary lymphadenopathy. The mediastin al soft tissues appear normal. There is no evidence of pleural or pericardial effusion. There is moderate to advanced emphysema. Multiple very small peripheral pulmonary nodules noted the r ight lung base, and to a lesser extent the left lung base, suggestive of either mild chronic intersti tial change or small airways infectious/postinflammatory change. No overtly suspicious pulmonary nodu le identified. There is mild biapical scarring. Images through the upper abdomen reveal no abnormalities. Impression: Moderate to advanced emphysema. Small peripheral bibasilar pulmonary nodules, right greater than left, suggestive of chronic intersti tial change or small airways infectious/postinflammatory change. No overtly suspicious pulmonary nodu le identified. Reviewed, dictated and finalized at [facility]. Impression: Moderate to advanced emphysema. Small peripheral bibasilar pulmonary nodules, right greater than left, suggesti ve of chronic interstitial change or small airways infectious/postinflammatory change. No overtly suspicious pulmonary nodule identified.
== END 2023-08-14 12:50 | disposition home or self-care (01) ==
LOC: ANHIMG 12:51
PROVIDERS: PCP Internal Medicine; Visit Provider Nurse Practitioner Family
DX: R91.1 Solitary pulmonary nodule (principal); R91.8 Other nonspecific abnormal finding of lung field; J43.9 Emphysema, unspecified
CPT/HCPCS: 71250

== ENCOUNTER 2024-01-13 23:43 | Inpatient (IN) | payer MEDICARE, MEDICAID, SELFPAY ==
--- NOTE | ~2024-01-13 | CT_ITS ---
Clinical Indication: Shortness of breath, back pain CT Scan of the Chest, Abdomen, and Pelvis without Contrast: Technique: Contiguous sections were acquired throughout the chest, abdomen, and pelvis without IV con trast administration. Dose reduction technique was used on this scan by utilizing automated exposure control and iterative reconstruction technique. The dose-length product (DLP) was 294.86 mGy-cm. Findings: There is no evidence of any significant mediastinal, hilar or axillary lymphadenopathy. The mediastin al soft tissues appear normal. There is no evidence of pleural or pericardial effusion. There is moderate to advanced emphysema with biapical scarring. The liver, spleen, pancreas, adrenals and kidneys are within normal limits. Cholecystectomy clips are present. No evidence of aortic aneurysm. No lymphadenopathy. No bowel obstruction or bowel wall thickening. There is no evidence to suggest acute appendicitis. Urinary bladder is unremarkable. No adnexal mass evident. No ascites. Impression: No acute abnormalities seen. Moderate to advanced emphysema. Reviewed, dictated and finalized at [facility]. RATION DIVER Impression: No acute abnormalities seen. Moderate to advanced emphysema.
--- NOTE | ~2024-01-13 | CT_ITS ---
EXAMINATION: CTA chest PE protocol DATE: 01/16/2024 08:28 INDICATION: Hypoxia, elevated d-dimer TECHNIQUE: Computed tomography angiography (CTA) of the chest was performed with 100 mL Omnipaque-350 intravenous contrast timed to evaluate the pulmonary arteries. Coronal maximum intensity projection 3D-reconstructions were created by the technologist. The dose-length product (DLP) was 144.50 mGy-cm. Automated exposure control and iterative reconstruction technique were employed. COMPARISON: 01/14/2024 FINDINGS: The pulmonary arteries are well-opacified. No pulmonary embolism is identified. There is mo derate emphysema. There is mild atelectasis of the lungs. No pleural effusion or pneumothorax. No pat hologically enlarged thoracic lymph nodes are identified. The heart size is normal. There is mild tho racic spondylosis. IMPRESSION: 1. No pulmonary embolism identified. 2. Moderate emphysema. Reviewed, dictated and finalized at location L. E LEADER
--- NOTE | ~2024-01-13 | XR_ITS ---
Portable chest x-ray Comparison: 11/29/2022 Clinical History: COPD, influenza Findings: No consolidation or pleural effusion seen. COPD pattern present. Cardiomediastinal silhou ette is stable. Bones and soft tissues are unremarkable. Impression: COPD. Reviewed, dictated and finalized at [facility]. ETING SENIOR RECRUITER Impression: COPD.
--- NOTE | ~2024-01-13 | US_ITS ---
EXAMINATION: US venous doppler [facility] DATE: 01/14/2024 14:33 INDICATION: Bilateral lower limb pain TECHNIQUE: Jacobson scale images without and with compression and Doppler images of the bilateral lower e xtremity veins were obtained. COMPARISON: 09/08/2021 FINDINGS: The right common femoral vein, profunda femoral vein, femoral vein, popliteal vein, peroneal trunk, p osterior tibial veins, and greater saphenous vein are patent. The left common femoral vein, profunda femoral vein, femoral vein, popliteal vein, peroneal trunk, po sterior tibial veins, and greater saphenous vein are patent. IMPRESSION: 1. Patent bilateral lower extremity veins. No evidence of deep venous thrombosis. Reviewed, dictated and finalized at location L. LRY MODEL MAKER IMPRESSION: 1. Patent bilateral lower extremity veins. No evidence of deep venous thrombosi s.
[2024-01-13 23:35] VITALS: BP 149/89; PULSE 115; RESP 22; TEMP 36.3; O2SAT 84
[2024-01-13 23:45] VITALS: PULSE 110; O2SAT 97
--- NOTE | 2024-01-13 23:45 | ECG_ITS ---
Measurements Intervals [place] Rate: 112 P: 75 MI: 118 QRS: -6 QRSD: 93 T: 66 QT: 321 QTc: 439 Interpretive Statements SINUS TACHYCARDIA WITH SHORT MI INTERVAL POSSIBLE RIGHT ATRIAL ENLARGEMENT [0.25mV P WAVE] INCOMPLETE RIGHT BUNDLE BRANCH BLOCK COMPARED TO ECG 11/29/2022 09:36:47 NO SIGNIFICANT CHANGES Electronically Signed On 01-14-2024 15:22:22 STEEL BUFFER by Charlette Love M.D.
[2024-01-13 23:57] LABS: Glucose Point of Care 56 mg/dl (65-105)
[2024-01-14] VITALS (83 sets, daily range): BP systolic 90–162; BP diastolic 51–99; PULSE 84–131; RESP 12–29; TEMP 36.4–37.2; O2SAT 95–100; BMI 18.5; BMI 18.1
[2024-01-14 00:08] LABS: Basophils Absolute Auto 0.1 K/mm3 (0.0-0.1); Basophils Percent Auto 0.8 % (0.2-1.2); Eosinophils Absolute Auto 0.1 K/mm3 (0-0.3); Eosinophils Percent Auto 0.6 % (0-4.4); Hemoglobin 13.1 g/dL (12.0-15.0); Immature Granulocyte Absolute 0.04 K/mm3 (0.00-0.031); Immature Granulocyte Percent A 0.3 % (0-0.5); Lymphocytes Absolute Auto 1.65 K/mm3 (0.9-3.2); Lymphocytes Percent Auto 14.1 % (18.3-44.2); Mean Platelet Volume 8.7 fl (7.4-10.4); Monocytes Absolute Auto 1.9 K/mm3 (0.1-0.6); Neutrophils Percent Auto 68.2 % (45.5-73.1); Platelet Count Result 227 k/mm3 (150-375); Red Blood Count 4.36 M/mm3 (4.2-5.4); Red Cell Distribution Width 12.7 % (11.5-14.5); White Blood Count 11.7 K/mm3 (4.5-10.0)
[2024-01-14] MEDS: DEXTROSE 50% 25 GM/50 ML SYRINGE (00:12)
--- NOTE | 2024-01-14 00:12 | PC.NURSE ---
upon arrival pt blood glucose in the 50s. this rn recieved verbal order from edp dr. cardenas to try to have pt consume orange juice PO. Pt was unable to tolerate orange juice PO. EDp verbal order 1 amp of D50. This rn used closed loop communication to verify 1 amp of D50.
--- NOTE | 2024-01-14 00:18 | ED.GENADULT ---
HPI - General Adult General Chief complaint: Unspecified Stated complaint: DEHYDRATION Time Seen by Provider: 01/14/24 00:11 History of Present Illness HPI narrative: 68-year-old female present to the emergency department for evaluation of worsening nausea vomiting and shortness of breath. Patient does have history of COPD is normally on 2 L of oxygen by nasal cannula. Patient states she has had decreased p.o. intake over the last few days. Patient called EMS and patient was found to desaturate quickly on her 2 L and she was bumped up to 5 L. upon arrival emergency department patient is complaining of lower back pain and nausea and vomiting Related Data Home Medications Medication Instructions Recorded Confirmed Vitamin D3 2,000 mg PO DAILY 10/13/19 12/23/23 diphenhydramine 25 1 tablet PO HS PRN Insomnia 10/13/19 12/23/23 mg-acetaminophen 500 mg tablet (Tylenol PM Extra Strength) mecobalamin (vitamin B12) 1,000 1,000 mcg PO DAILY 10/13/19 12/23/23 mcg disintegrating tablet,sublingual Allergies Allergy/AdvReac Type Severity Reaction Status Date / Time Iodinated Contrast Media Allergy Severe RASH AND Verified 01/13/24 23:46 SEVERE ITCHING aspirin AdvReac Intermediate Abdominal Verified 01/13/24 23:46 Pain Review of Systems Review of Systems: All systems reviewed & are unremarkable except as noted in HPI and below PMFSH Past Medical History Medical History (Updated 01/14/24 @ 03:05 by Ike Chisholm MD) Adhesive capsulitis of left shoulder Anxiety Arthritis Chronic anemia Chronic obstructive pulmonary disease Congestive heart failure (CHF) Emphysema lung Gastroesophageal reflux disease Macular degeneration, age related, exudative Nausea Osteoporosis Protein-calorie malnutrition Pulmonary embolism Pulmonary hypertension Tobacco abuse Vitamin B 12 deficiency Vitamin D deficiency Wears glasses Surgical History Surgical History History of benign breast biopsy History of bladder suspension procedure History of cholecystectomy (2002) History of colonoscopy Family History Family History Father Family history of cardiovascular disease Acute myocardial infarction Hypertension Family history of type 2 diabetes mellitus Mother Hypertension Family history of thyroid disease Family history of multiple sclerosis Sibling Mesothelioma Other Diabetes mellitus Heart disease Neuropathy Skin cancer Social History Social History (Updated 12/23/23 @ 13:31 by Bri Leblanc [facility]) Social History: Surrogate medical decision maker: Monique Wright, daughter. Code status: Full code. Smoking packs per day: 1 Smoking cigarettes per day: 20.0 Years smoked: 40 Smoking pack-years: 40.00 Smoking status: Former smoker Tobacco type: cigarettes Second hand tobacco smoke exposure: No Smoking end date: 05/04/14 Alcohol intake: former Substance use: former Substance use type: marijuana Other substance usage details: 2 years ago Do You Feel Safe in your Home?: Yes Lack of Transportation: No Lack of Food: Never True Current Housing: I Have Housing Concerned About Future Housing: No Difficulty Paying Gas/Electric Bills: No Difficulty Paying for Meds: No Currently Unemployed: No Education: High School Diploma/GED Difficulty w/ Childcare or Family Care: No Living arrangements: with family 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ucation: retired Spiritual care concerns: No Exam Narrative: APPEARANCE: ill-appearing HEAD: normocephalic, atraumatic. EYES: PERRLA/EOMI, conjunctivae clear. NOSE: Normal no drainage EARS:TMS clear with good light reflex. THROAT: Pharynx clear, no exudate. NECK: Supple. No adenopathy, no masses. RESPIRATORY: minimal air movement bilateral CARDIOVASCULAR: Regular rate and rhythm without murmurs rubs or g
[2024-01-14 00:23] LABS: Alanine Aminotransferase 24 U/L (6-35); Albumin Level 4.7 g/dL (3.5-5.1); Alkaline Phosphatase 65 U/L (38-126); Anion Gap 11 mmol/L (8-16); Aspartate Amino Transferase 54 U/L (14-36); Bilirubin,Total 0.7 mg/dL (0.2-1.3); Blood Urea Nitrogen 23 mg/dL (7-17); Carbon Dioxide 28 mmol/L (22-30); Chloride 91 mmol/L (98-107); Estimated CRCL calculation 41 ml/min; Estimated Glomerular Filt Rate > 60; Glucose 53 mg/dL (65-110); Lipase 51 U/L (23-300); Potassium 4.2 mmol/L (3.4-5.0); Sodium 130 mmol/L (137-145)
[2024-01-14 00:24] LABS: Appearance Urine Clear (Clear); Bacteria Urine None Seen /hpf; Bilirubin Urine Negative (Negative); Blood Urine 1+ (Negative); Color Urine Yellow (Yellow); Glucose Urine UA 2+ mg/dL (Negative); Ketones Urine 4+ mg/dL (Negative); Leukocyte Esterase Ur Negative LEU/UL (Negative); Nitrate Urine Negative (Negative); Non Pathogenic Casts 0-2; Protein Urine Negative (Negative); Specific Grav Ur 1.018 (1.001-1.035); Squamous Epithelial Cell Urine Occasional /hpf (Few); Urobilinogen Urine 0.2 mg/dL (<2.0); WBC Urine 0-5 /hpf; pH Urine 5.5 (5.0-9.0)
[2024-01-14 00:30] LABS: Add Urine Microscopic? YES
[2024-01-14] MEDS: ALBUTEROL SULFATE NEB 2.5 MG/3 ML INH 10 MG INHALATION (00:43)
[2024-01-14] MEDS: IPRATROPIUM BR 0.02% INH SOLN 0.5 MG/2.5 ML VIAL 1 MG INHALATION (00:43)
[2024-01-14 00:48] LABS: Alveolar/Arterial O2 Gradient 147.7 mmHg; Base Excess ABG -4.4 mEq/l (+/-2.0); Carboxyhemoglobin 1.2 % THb (0-2.0); Fractional Inspired Oxygen 44 %; HCO3 ABG 22.6 mEq/l (22.0-26.0); Methemoglobin ABG 0.4 %THb (0-1.5); Oxygen Content ABG 18.2 %vol (16.0-22.0); Oxygen Saturation ABG 97.4 % (95.0-100.0); PO2 ABG 110.2 mmHg (80.0-100.0); Reduced Hemoglobin 2.4 %THb (0-5.0); Total Hemoglobin 13.4 g/dL (12.0-18.0)
[2024-01-14] MEDS: methylPREDNISolone SOD SUCC 125 MG VIAL IV PUSH (00:50)
[2024-01-14] MEDS: SODIUM CHLORIDE 0.9% IV 1,000 ML 999 ML IV CONT (00:50)
[2024-01-14 00:52] LABS: Device NASAL CANNULA; Modified Allen's Test Pass; Site Drawn RIGHT RADIAL; pH ABG 7.282 (7.350-7.450)
[2024-01-14] MEDS: LORazepam INJ (*CRX) 2 MG/ML VIAL 0.5 MG IV PUSH ×2 (00:55→01:31)
--- NOTE | 2024-01-14 00:57 | PC.NURSE ---
pt unable to tolerate breathing treatment in progress started by RT. This RN notified EDP Dr. Chisholm of pt inability to tolerate breathing treatment. pt kept taking off the mask stating she couldn't breathe. EDP Dr. Chisholm verbal order 0.5mg of Ativan for pt to tolerate breathing treatment. this rn used closed loop communication to confirm route/ dose/ medication/ patient. EDP Dr. Chisholm verbally confirmed.
--- NOTE | 2024-01-14 01:29 | PC.NURSE ---
Pt restless on stretcher, requesting to take off BiPAP. EDP and respiratory notified. Per [facility] EDP Phan, give 0.5mg IVP Ativan.
[2024-01-14 01:30] LABS: Influenza A QL RT-PCR Negative (Negative); Influenza B QL RT-PCR Positive (Negative); RSV RNA, RT-PCR Negative (Negative); SARS-CoV-2 RNA PCR Negative (Negative)
[2024-01-14] MEDS: MAGNESIUM SULF 1 GM/D5W 100 ML 1 GM/100 ML BAG IVPB (01:57)
--- NOTE | 2024-01-14 02:00 | PC.NURSE ---
upon entering the room to initiate Magnesium infusion, pt was sitting up and pulling at bipap monitor. pt went to assess pt and noticed IV catheter out of pt arm. Pt bleeding was controlled and iv catheter was intact connected to iv fluid bag. edp dr. cardenas made aware. IV was reestablished in the left forearm with a 20 guage IV, with magnesium started. BIPAP mask readjusted on pt face due to pt request of being uncomfortable. pt began to lay down and started resting comfortable with bilateral chest movement. Pt is Ao x 4. blood sugar rechecked. edp made aware.
[2024-01-14 02:02] LABS: Glucose Point of Care 182 mg/dl (65-105)
[2024-01-14] MEDS: AZITHROMYCIN 500 MG/NS 250 ML 500 MG/250 ML BAG 250 MG IVPB (04:34)
[2024-01-14 05:31] LABS: Glucose Point of Care 190 mg/dl (65-105)
[2024-01-14] MEDS: methylPREDNISolone SOD SUCC 125 MG VIAL 60 MG IV PUSH ×2 (06:11→12:28)
--- NOTE | 2024-01-14 07:03 | PC.NURSE ---
Due to decrease in pt blood pressure, edp dr. cohen verbal ordered 1L normal saline to infuse at a rate of 999mls/ hour. This rn used closed loop communication to verbally confirm dose/ medication/ patient/ route. Edp dr. cardenas confirmed. pt blood pressure at time of infusion was 93/45, heart 93, 100% on bipap, and 22RR. At this time pt has no complaints.
[2024-01-14] MEDS: SODIUM CHLORIDE 0.9% IV 1,000 ML 999 ML (07:09)
[2024-01-14] MEDS: ONDANSETRON INJ 4 MG/2 ML VIAL (09:29)
[2024-01-14] MEDS: ALBUTEROL SULFATE NEB 2.5 MG/3 ML INH INHALATION ×2 (09:43→13:32)
--- NOTE | 2024-01-14 11:03 | PM.IMHP ---
H&P: HPI History of Present Illness Date/Time: 01/14/24 11:03 Chief Complaint: Nausea and shortness of breath Narrative: 68yo female with chronic respiratory failure, COPD and pulmonary HTN here for nuase and shortness of breath. Patient the past 2 days developed nausea fatigue. Also having cough productive yellow sputum and shortness of breath no chest pain or palpitations. No vomiting or diarrhea. No fever or chills. She did have some mild loose stool in the emergency. No wheezing. She normally wears oxygen with 2 L at rest and 3 L with activity. She has a Trelegy at home that she uses 7 nights a week. She has never been intubated. She denies that she has CHF for history of pulmonary embolism as listed in her past medical history. He has been compliant with her Spiriva and Symbicort. She has albuterol nebulizer treatments has been using them twice a day over the past few days with benefit. No new medications. No [id number] medications. She has a vision changes, ear pain, URI symptoms or odynophagia. She does complain of dysphagia with food sticking sensation. She has not been eating much because of the nausea and shortness of breath. She has been immobile lying on the couch. She is getting lightheadedness with standing which also makes her nausea and shortness of breath worse. No pedal edema. She had calf pain yesterday but not today. She follows with Dr Sanz. She presented to the emergency room via EMS with increasing shortness of breath. In the emergency room, she was tachycardic, tachypneic and hypoxic. She required 15 L non-rebreather. She was switched to BiPAP. White count was 11.7 K with CBC otherwise being normal. ABG 7.28/49/110 on 6 L nasal cannula. Sodium 130 BUN 23 and glucose 53. AST 54 otherwise LFTs normal. Lipase normal. Glucose was corrected. UA showed 2+ glucose, 4+ ketones and 1+ blood and 11-20 red cells. COVID, influenza a and RSV PCR were negative. She was positive for influenza B. she has had her influenza vaccine this season. CT of the chest, abdomen and pelvis showed moderate to advanced emphysema with biapical scarring but no acute abnormalities. EKG shows sinus tachycardia. She was treated with prolonged nebulizer treatment, Solu-Medrol, Ativan, IV fluids, magnesium, Rocephin and azithromycin. She was given Zofran as well for nausea. She was admitted for further care. Review of Systems Review of Systems: All systems reviewed & are unremarkable except as noted in HPI and below PMFSH Past Medical History Medical History Adhesive capsulitis of left shoulder Anxiety Arthritis Chronic anemia Chronic obstructive pulmonary disease Congestive heart failure (CHF) Patient denies Emphysema lung Gastroesophageal reflux disease Macular degeneration, age related, exudative Nausea Osteoporosis Protein-calorie malnutrition Pulmonary embolism Patient denies Pulmonary hypertension Tobacco abuse Vitamin B 12 deficiency Vitamin D deficiency Wears glasses Surgical History Surgical History History of benign breast biopsy History of bladder suspension procedure History of cholecystectomy (2002) History of colonoscopy Family History Family History Father Family history of cardiovascular disease Acute myocardial infarction Hypertension Family history of type 2 diabetes mellitus Mother Hypertension Family history of thyroid disease Family history of multiple sclerosis Sibling Mesothelioma Other Diabetes mellitus Heart disease Neuropathy Skin cancer Social History Social History (Updated 01/14/24 @ 11:33 by Dewayne Darnell MD) Social History: Patient smoked 1-2 packs per day for 40 years. She quit in 2013. She lives alone. No alcohol or drug use. Does smoke marijuana on occasion and and did
[2024-01-14 12:16] LABS: Base Excess ABG -2.6 mEq/l (+/-2.0); Fractional Inspired Oxygen 40 %; HCO3 ABG 25.5 mEq/l (22.0-26.0); Oxygen Saturation ABG 98.7 % (95.0-100.0); Oxyhemoglobin 97.4 % THb (90.0-100.0); PCO2 ABG 59.6 mmHg (35.0-45.0); PO2 ABG 158.7 mmHg (80.0-100.0); PO2 FiO2 Ratio Arterial Blood 3.97 %; Total Hemoglobin 12.9 g/dL (12.0-18.0)
[2024-01-14 12:22] LABS: Device NON-INVASIVE VENT; Modified Allen's Test Pass; Site Drawn RIGHT RADIAL
[2024-01-14 12:23] LABS: Non-Invasive Expiratory Pressure 6 CMH2O; Non-Invasive Inspiratory Pressure 12 CMH2O; Non-Invasive Vent Rate 16 /MIN
[2024-01-14] MEDS: ENOXAPARIN 40 MG/0.4 ML SYRINGE SUB-Q (12:40)
[2024-01-14 12:41] LABS: Anion Gap 8 mmol/L (8-16); Blood Urea Nitrogen 19 mg/dL (7-17); Calcium 7.6 mg/dL (8.4-10.2); Carbon Dioxide 26 mmol/L (22-30); Chloride 99 mmol/L (98-107); Estimated CRCL calculation 54 ml/min; Estimated Glomerular Filt Rate > 60; Glucose 124 mg/dL (65-110); Potassium 4.6 mmol/L (3.4-5.0); Sodium 133 mmol/L (137-145)
[2024-01-14] MEDS: SODIUM CHLORIDE 0.9% IV 1,000 ML 70 ML IV CONT (12:41)
[2024-01-14 12:53] LABS: D Dimer 0.75 ug/mL (<0.48)
[2024-01-14 13:44] LABS: Alveolar/Arterial O2 Gradient 69.2 mmHg; Base Excess ABG -2.7 mEq/l (+/-2.0); Fractional Inspired Oxygen 30 %; HCO3 ABG 23.9 mEq/l (22.0-26.0); Oxygen Content ABG 16.2 %vol (16.0-22.0); Oxygen Saturation ABG 95.8 % (95.0-100.0); Oxyhemoglobin 95.3 % THb (90.0-100.0); PCO2 ABG 48.6 mmHg (35.0-45.0); PO2 ABG 87.6 mmHg (80.0-100.0); PO2 FiO2 Ratio Arterial Blood 2.92 %; pH ABG 7.309 (7.350-7.450)
[2024-01-14 13:46] LABS: Device NON-INVASIVE VENT; Modified Allen's Test Pass; Non-Invasive Expiratory Pressure 6 CMH2O; Non-Invasive Inspiratory Pressure 16 CMH2O; Non-Invasive Vent Rate 16 /MIN; Site Drawn RIGHT RADIAL
--- NOTE | 2024-01-14 15:36 | ADMGEN ---
This patient, Juanis Jim, was admitted to IMU Room 210 1510. Patient/family oriented to hospital policies and general routines including ID bracelet, bed and alarms, visiting hours, pain management, procedures, bathroom and other care routines, personal items, smoking policy, room service/diet, and visiting hours. Information on how to activate the Rapid Response Team has been discussed. Patient/Family are encouraged to report perceived risks to care and to ask questions if they do not understand what they are told or what they should do.
[2024-01-14] MEDS: SODIUM CHLORIDE 0.9% IV 1,000 ML 70 ML (15:57)
[2024-01-14] MEDS: ENOXAPARIN 80 MG/0.8 ML SYRINGE (15:58)
--- NOTE | 2024-01-14 16:04 | PM.CNPUL ---
Assessment and Plan Assessment and plan (1) Influenza: Code(s): J11.1 - Influenza due to unidentified influenza virus with other respiratory manifestations Status: Acute Assessment and Plan: Patient was exposed to a sick granddaughter last week and presented with nausea, vomiting and worsening shortness of breath. CT scan showed no focal consolidations. Currently has influenza B. Plan: Will continue Tamiflu 75 mg p.o. b.i.d. at this time I will discontinue systemic and inhaled corticosteroids. There is no evidence of a bacterial infection and at this time I will discontinue ceftriaxone and patient has had some change in her sputum production and will continue azithromycin. I will check a chest x-ray in the morning to look for progression. Discussed with Dr. Darnell, will follow with you. (2) COPD, severe: Code(s): J44.9 - Chronic obstructive pulmonary disease, unspecified Status: Acute Assessment and Plan: Patient with a history of 40 pack year tobacco use, quit 2013, chronic hypercarbic and hypoxemic respiratory failure on 2 L nasal cannula and a trilogy at home. At home she is maintained on Symbicort 160-4.5 at 2 puffs twice a day and Spiriva HandiHaler. Her CAT score was 14. She had excellent compliance on her noninvasive ventilator. Download 09/20/2023 through 12/18/2023 demonstrated she was on AVAPS AE with an auto rate, tidal volume 400, minimal EPAP 5, maximal EPAP 10, minimal pressure support 6, maximal pressure support 16 with an average rate of 15, average tidal volume of 397, average minute ventilation of 6.4, average EPAP 5.8, average IPAP 18 with compliance a greater than 4 hours at 100%, average usage was 7 hours and 56 minutes and a leak average of 35. This represents an excellent compliance, adequate pressures and minimal leak. Currently the patient has no wheezing. She tells me she had no worsening hypoxemia prior to admission. Plan: I will place the patient on DuoNebs q.4 hours standing. As mentioned above I will discontinue systemic and inhaled steroids at this time. I will follow for evidence of bronchospasm. Goal saturation 90-94%. Patient should wear noninvasive ventilator p.r.n. during the day and at night. I have told the patient to have her home noninvasive ventilator brought to the hospital so that once she is stabilized we can transition her back to her home machine. History of Present Illness History of Present Illness Consult date: 01/14/24 Chief complaint: Influenza, COPD, Respiratory Distress Narrative: 01/14/2024: This is a new pulmonary consult for chronic hypoxemic and hypercarbic respiratory failure from COPD and influenza B infection. 68-year-old with a history of COPD on home 2 L nasal cannula and nocturnal trilogy noninvasive ventilator. Patient is followed in [facility] was last seen on 12/18/2023 At that visit note she was on 2 L nasal cannula, Symbicort, Spiriva with a CAT score of 14. Download 09/20/2023 through 12/18/2023 demonstrated she was on AVAPS AE with an auto rate, tidal volume 400, minimal EPAP 5, maximal EPAP 10, minimal pressure support 6, maximal pressure support 16 with an average rate of 15, average tidal volume of 397, average minute ventilation of 6.4, average EPAP 5.8, average IPAP 18 with compliance a greater than 4 hours at 100%, average usage was 7 hours and 56 minutes and a leak average of 35. This represents an excellent compliance, adequate pressures and minimal leak. Last week the patient was exposed to a granddaughter who had a respiratory illness. The patient developed nausea, vomiting and worsening shortness of breath and presented to the emergency room with saturations 84% on 2 L. She had decreased breath sounds. White blood cell count was 11.7 with 0.6% eosinophils. Creatinine was 0.8, glucose was 53. ABG on 6 L nasal cannula 7.28/49/110. Patient tested positive for influenza B. CT scan of the chest demonstrated se
--- NOTE | 2024-01-14 16:21 | PCSTNOTE ---
Patient asleep and on high-flow oxygen mask. Bedside Swallow delayed until tomorrow morning.
[2024-01-14] MEDS: IPRATROPIUM 0.5 MG/ALBUTEROL SULFATE 2.5 MG AMPUL.NEB 3 ML INHALATION (21:01)
[2024-01-14] MEDS: OSELTAMIVIR PHOSPHATE 75 MG CAPSULE PO (21:11)
[2024-01-14] MEDS: diphenhydrAMINE HCl CAP 25 MG CAPSULE PO (23:18)
[2024-01-14] MEDS: ALPRAZolam (*CRX) 0.25 MG TABLET PO (23:18)
[2024-01-14] MEDS: MIRTAZAPINE 15 MG TABLET PO (23:18)
[2024-01-14] MEDS: ACETAMINOPHEN 500 MG TABLET PO (23:19)
[2024-01-14] MEDS: oxyBUTYnin CHLORIDE 5 MG TABLET PO (23:19)
[2024-01-15] VITALS (26 sets, daily range): BP systolic 105–142; BP diastolic 53–68; PULSE 86–124; RESP 17–20; TEMP 36.6–37; O2SAT 92–100
[2024-01-15] MEDS: IPRATROPIUM 0.5 MG/ALBUTEROL SULFATE 2.5 MG AMPUL.NEB 3 ML INHALATION ×6 (00:53→19:51)
[2024-01-15] MEDS: AZITHROMYCIN 500 MG/NS 250 ML 500 MG/250 ML BAG 250 MG IVPB (03:20)
[2024-01-15] MEDS: ONDANSETRON INJ 4 MG/2 ML VIAL IV PUSH ×2 (04:20→13:26)
[2024-01-15 04:40] LABS: Basophils Percent Auto 0.1 % (0.2-1.2); Hemoglobin 11.1 g/dL (12.0-15.0); Immature Granulocyte Absolute 0.03 K/mm3 (0.00-0.031); Immature Granulocyte Percent A 0.4 % (0-0.5); Lymphocytes Absolute Auto 0.42 K/mm3 (0.9-3.2); Lymphocytes Percent Auto 5.6 % (18.3-44.2); Mean Corpuscular HGB Conc 32.6 g/dl (32-36); Mean Corpuscular Hemoglobin 30.2 pg (26-34); Mean Corpuscular Volume 92.6 fl (80-100); Mean Platelet Volume 8.9 fl (7.4-10.4); Monocytes Absolute Auto 0.7 K/mm3 (0.1-0.6); Monocytes Percent Auto 8.9 % (2.6-8.5); Neutrophils Absolute Auto 6.4 K/mm3 (1.3-6.7); Platelet Count Result 188 k/mm3 (150-375); Red Blood Count 3.67 M/mm3 (4.2-5.4); Red Cell Distribution Width 13.1 % (11.5-14.5); White Blood Count 7.5 K/mm3 (4.5-10.0)
[2024-01-15 04:56] LABS: Anion Gap 3 mmol/L (8-16); Blood Urea Nitrogen 15 mg/dL (7-17); Calcium 7.8 mg/dL (8.4-10.2); Carbon Dioxide 30 mmol/L (22-30); Chloride 103 mmol/L (98-107); Estimated CRCL calculation 52 ml/min; Estimated Glomerular Filt Rate > 60; Glucose 122 mg/dL (65-110); Potassium 4.1 mmol/L (3.4-5.0); Sodium 136 mmol/L (137-145)
[2024-01-15 05:02] LABS: NT Pro B Type Natriuretic Pept 789 pg/mL (19.9-100)
[2024-01-15 07:43] LABS: Free T4 Free Thyroxine Reflex 1.34 ng/dL (0.78-2.19)
[2024-01-15] MEDS: ALPRAZolam (*CRX) 0.25 MG TABLET PO ×2 (08:26→21:28)
[2024-01-15] MEDS: MONTELUKAST SODIUM 10 MG TABLET PO (08:26)
[2024-01-15] MEDS: ENOXAPARIN 40 MG/0.4 ML SYRINGE SUB-Q (08:26)
[2024-01-15] MEDS: ASCORBIC ACID 500 MG TABLET 1000 MG PO (08:26)
[2024-01-15] MEDS: CYANOCOBALAMIN 1,000 MCG TABLET 1000 MCG PO (08:26)
[2024-01-15] MEDS: SERTRALINE HCL 50 MG TABLET PO (08:26)
[2024-01-15] MEDS: PANTOPRAZOLE 40 MG TABLET PO (08:26)
[2024-01-15] MEDS: CHOLECALCIFEROL 1,000 UNITS TABLET 2000 UNITS PO (08:26)
[2024-01-15] MEDS: OSELTAMIVIR PHOSPHATE 75 MG CAPSULE PO ×2 (08:26→21:28)
[2024-01-15 08:41] LABS: Total Triiodothyronine (T3) 0.77 NG/ML (0.97-1.69)
--- NOTE | 2024-01-15 09:52 | PCSTNOTE ---
Please refer to the Bedside Swallow Evaluation in the EMR. Please note, silent aspiration cannot be ruled out at bedside.
--- NOTE | 2024-01-15 10:31 | PM.IMPN ---
Progress Note: A&P Assessment and Plan (1) Acute respiratory failure with hypoxia and hypercapnia: Code(s): J96.01 - Acute respiratory failure with hypoxia; J96.02 - Acute respiratory failure with hypercapnia Status: Acute Assessment and Plan: Acute hypoxic and hypercarbic respiratory failure on chronic hypoxic and hypercarbic respiratory failure presumably due to influenza B. Continue appreciating pulmonology recommendations. Will trial on her home noninvasive ventilator tonight. Acute phase resolved. Back on chronic 2 L at rest. Solu-Medrol has been discontinued. Continue DuoNebs and azithromycin. D-dimer elevated. Patient had rash with IV contrast a long time ago and she wants to try CT chest with contrast and premedication after weighing the risk and benefits her of CTA and V/Q scan. Lower extremity Dopplers negative. She had complained of some dysphagia on admission. Speech therapy recommendations noted. (2) COPD exacerbation: Code(s): J44.1 - Chronic obstructive pulmonary disease with (acute) exacerbation Status: Acute Assessment and Plan: As above. (3) Influenza: Code(s): J11.1 - Influenza due to unidentified influenza virus with other respiratory manifestations Status: Acute Assessment and Plan: Continue Tamiflu b.i.d.. (4) Dehydration: Code(s): E86.0 - Dehydration Status: Acute Assessment and Plan: Resolved status post fluid resuscitation. (5) Hyponatremia: Code(s): E87.1 - Hypo-osmolality and hyponatremia Status: Acute Assessment and Plan: Resolved. Likely due to hypo volemia. (6) Hypoglycemia: Code(s): E16.2 - Hypoglycemia, unspecified Status: Acute Assessment and Plan: Resolved. She is now eating well. Plan 68-year-old female with a past medical history chronic hypoxemic and hypercarbic respiratory failure, prior tobacco abuse, COPD on trilogy at home, pulmonary hypertension center with nausea and shortness of breath. She was exposed to a family member with URI symptoms recently. She also complained of productive yellow sputum with a cough and poor oral intake. In the [facility] she was tachycardic and tachypneic and hypoxic requiring 15 L non-rebreather and eventually BiPAP therapy. She was positive for influenza B. admitted on 01/14/2024 FEN: Saline lock IV GI prophylaxis: Presumably placed on Protonix b.i.d. since the patient was on BiPAP. Discontinue on 01/15 DVT prophylaxis: Lovenox Lines: Peripheral IV Code Status: Full code Dispo: Stable in IMU. Transfer to [facility] surg Subjective Date/time seen: 01/15/24 10:31 Interval history: No acute overnight events. Patient unable to sleep well at night due to all of the things going on. She reports her cough is now dry and starting to improve more. She denies shortness of breath and was able to tolerate the noninvasive ventilator at night. Review of Systems Review of Systems: All systems reviewed & are unremarkable except as noted in HPI and below (Subjective) Exam Const: General: comfortable and no acute distress Other: A&O x3 Neck: Neck: supple Resp: Effort & Inspection: normal respiratory effort Auscultation: clear to auscultation bilaterally Cardio: Rate: regular rate Rhythm: regular rhythm Heart sounds: no gallops, no murmurs and no rubs GI: GI Palp: Yes Soft to palpation and No Tenderness to palpation present (GI) Extrem: General: no edema Objective Data Vital Signs Vital Signs: Vital Signs - 24 hr 01/14/24 10:45 01/14/24 11:00 01/14/24 11:01 Temperature Pulse Rate 85 88 86 Respiratory Rate 17 18 16 Blood Pressure 98/54 L Pulse Oximetry 100 100 100 Oxygen Delivery Oxygen Flow Rate Fraction of Inspired Oxygen 01/14/24 11:15 01/14/24 11:16 01/14/24 11:33 Temperature Pulse Rate 90 89 92 Respiratory Rate 15 16 18 Blood Pressure Pulse Oximetry 99 99 100 Oxy
--- NOTE | 2024-01-15 10:41 | PM.PNPUL ---
Progress Note: A&P Assessment and Plan (1) Influenza: Code(s): J11.1 - Influenza due to unidentified influenza virus with other respiratory manifestations Status: Acute Assessment and Plan: Patient was exposed to a sick granddaughter last week and presented with nausea, vomiting and worsening shortness of breath. CT scan showed no focal consolidations. Currently has influenza B. 01/14: Plan: Will continue Tamiflu 75 mg p.o. b.i.d. at this time I will discontinue systemic and inhaled corticosteroids. There is no evidence of a bacterial infection and at this time I will discontinue ceftriaxone and patient has had some change in her sputum production and will continue azithromycin. I will check a chest x-ray in the morning to look for progression. 01/15/24: Patient tolerated off the BiPAP yesterday afternoon. Patient wore hospital noninvasive ventilator with the above-mentioned AVAPS settings overnight and said she slept well. Currently she is on 2 L nasal cannula saturations 100%. Patient states she is 95% back to her normal breathing state. She does have a dry cough with no hemoptysis. She has no wheezing. White blood cell count 7.5, creatinine 0.6. Chest x-ray today showed hyperinflation with no focal infiltrates or effusions. Plan: Patient is clinically improved. Continue Tamiflu, day 2. Continue azithromycin, day 2. If the patient continues to improve possible discharge on 01/16/2024. Discussed with Dr. Frey, will follow with you. (2) COPD, severe: Code(s): J44.9 - Chronic obstructive pulmonary disease, unspecified Status: Acute Assessment and Plan: Patient with a history of 40 pack year tobacco use, quit 2013, chronic hypercarbic and hypoxemic respiratory failure on 2 L nasal cannula and a trilogy at home. At home she is maintained on Symbicort 160-4.5 at 2 puffs twice a day and Spiriva HandiHaler. Her CAT score was 14. She had excellent compliance on her noninvasive ventilator. Currently the patient has no wheezing. She tells me she had no worsening hypoxemia prior to admission. 01/14/24: Plan: I will place the patient on DuoNebs q.4 hours standing. As mentioned above I will discontinue systemic and inhaled steroids at this time. I will follow for evidence of bronchospasm. Goal saturation 90-94%. Patient should wear noninvasive ventilator p.r.n. during the day and at night. I have told the patient to have her home noninvasive ventilator brought to the hospital so that once she is stabilized we can transition her back to her home machine. 01/15/24: Patient is clinically improved with no evidence of wheezing. Plan: I will continue DuoNebs q.4 hours. Continue montelukast 10. Continue to hold on inhaled and systemic steroids at this time. Currently the patient is on 2 L nasal cannula which is her baseline. (3) Acute on chronic respiratory failure with hypoxia and hypercapnia: Code(s): J96.21 - Acute and chronic respiratory failure with hypoxia; J96.22 - Acute and chronic respiratory failure with hypercapnia Status: Acute Assessment and Plan: Patient is on a home noninvasive ventilator with the AVAPS AE settings and 2 L bleed in. Download 09/20/2023 through 12/18/2023 demonstrated she was on AVAPS AE with an auto rate, tidal volume 400, minimal EPAP 5, maximal EPAP 10, minimal pressure support 6, maximal pressure support 16 with an average rate of 15, average tidal volume of 397, average minute ventilation of 6.4, average EPAP 5.8, average IPAP 18 with compliance a greater than 4 hours at 100%, average usage was 7 hours and 56 minutes and a leak average of 35. This represents an excellent compliance, adequate pressures and minimal leak. 01/14/24: I enter the room the patient was on BiPAP rate of 16 breathing 19 times a minute, pressure 16/6 with a tidal volume of 580 on 30% FiO2 with saturations 100%.? The patient said the BiPAP was very uncomfortable and she could not lay
[2024-01-15] MEDS: predniSONE 40 MG, predniSONE 10 MG 50 MG PO (18:47)
[2024-01-15] MEDS: MIRTAZAPINE 15 MG TABLET PO (21:28)
[2024-01-15] MEDS: oxyBUTYnin CHLORIDE 5 MG TABLET PO (21:29)
[2024-01-15] MEDS: ACETAMINOPHEN 500 MG TABLET PO (21:33)
[2024-01-15] MEDS: diphenhydrAMINE HCl CAP 25 MG CAPSULE PO (21:34)
[2024-01-16] VITALS (12 sets, daily range): BP systolic 112–135; BP diastolic 62–73; PULSE 73–119; RESP 18–22; TEMP 36.1–37.5; O2SAT 84–99
[2024-01-16] MEDS: predniSONE 40 MG, predniSONE 10 MG 50 MG PO ×2 (01:04→07:19)
--- NOTE | 2024-01-16 01:10 | PC.NURSE ---
Patient arrived from IMU at 2300. All questions answered at this time. 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
[2024-01-16 05:39] LABS: Alveolar/Arterial O2 Gradient 63.6 mmHg; Base Excess ABG 2.5 mEq/l (+/-2.0); Fractional Inspired Oxygen 30 %; HCO3 ABG 28.1 mEq/l (22.0-26.0); Modified Allen's Test Pass; Oxygen Content ABG 16.2 %vol (16.0-22.0); Oxygen Saturation ABG 97.1 % (95.0-100.0); Oxyhemoglobin 95.6 % THb (90.0-100.0); PCO2 ABG 47.5 mmHg (35.0-45.0); PO2 ABG 94.5 mmHg (80.0-100.0); PO2 FiO2 Ratio Arterial Blood 3.15 %; Site Drawn RIGHT RADIAL
[2024-01-16 05:40] LABS: Device NON-INVASIVE VENT; Non-Invasive Expiratory Pressure 5 CMH2O; Non-Invasive Vent Rate 16 /MIN
--- NOTE | 2024-01-16 06:27 | PCRCNOTE ---
Pt was on an overnight sleep study, therefore patients Q4 treatments were not given. Will resume at 0800.
[2024-01-16] MEDS: diphenhydrAMINE HCl INJ 50 MG/ML VIAL IV PUSH (07:19)
[2024-01-16 07:31] LABS: Anion Gap 6 mmol/L (8-16); Blood Urea Nitrogen 17 mg/dL (7-17); Calcium 8.6 mg/dL (8.4-10.2); Carbon Dioxide 34 mmol/L (22-30); Chloride 100 mmol/L (98-107); Estimated CRCL calculation 53 ml/min; Estimated Glomerular Filt Rate > 60; Glucose 127 mg/dL (65-110); Potassium 4.6 mmol/L (3.4-5.0); Sodium 140 mmol/L (137-145)
[2024-01-16] MEDS: IPRATROPIUM 0.5 MG/ALBUTEROL SULFATE 2.5 MG AMPUL.NEB 3 ML INHALATION ×2 (07:36→11:43)
[2024-01-16 07:37] LABS: Hematocrit 38.2 % (37.0-47.0); Hemoglobin 12.1 g/dL (12.0-15.0); Mean Corpuscular HGB Conc 31.7 g/dl (32-36); Mean Corpuscular Volume 94.6 fl (80-100); Mean Platelet Volume 9.4 fl (7.4-10.4); Platelet Count Result 201 k/mm3 (150-375); Red Blood Count 4.04 M/mm3 (4.2-5.4); Red Cell Distribution Width 13.3 % (11.5-14.5); White Blood Count 5.7 K/mm3 (4.5-10.0)
--- NOTE | 2024-01-16 08:38 | P.CDI_ITS ---
underwight CDI Query Clarification Request Documentation in the medical record indicates this patient has a: BMI 18.5 The following is also documented in the medical record: Nutritional diagnostic statement Underweight related most likely to suboptimal po intake as evidenced by BMI 18.5. Based on your medical judgement, can you further clarify in the progress notes the diagnosis associated with these findings such as: * Underweight * Cachexia * Emaciation * Malnutrition * Undernutrition * Anorexia * Other condition (please specify) * None of the above/ Not applicable
[2024-01-16] MEDS: AZITHROMYCIN 250 MG TABLET PO (09:13)
[2024-01-16] MEDS: OSELTAMIVIR PHOSPHATE 75 MG CAPSULE PO (09:14)
[2024-01-16] MEDS: SERTRALINE HCL 50 MG TABLET PO (09:14)
[2024-01-16] MEDS: CYANOCOBALAMIN 1,000 MCG TABLET 1000 MCG PO (09:14)
[2024-01-16] MEDS: CHOLECALCIFEROL 1,000 UNITS TABLET 2000 UNITS PO (09:14)
[2024-01-16] MEDS: ALPRAZolam (*CRX) 0.25 MG TABLET PO (09:14)
[2024-01-16] MEDS: MONTELUKAST SODIUM 10 MG TABLET PO (09:14)
[2024-01-16] MEDS: ASCORBIC ACID 500 MG TABLET 1000 MG PO (09:15)
[2024-01-16] MEDS: ENOXAPARIN 40 MG/0.4 ML SYRINGE SUB-Q (09:15)
--- NOTE | 2024-01-16 09:38 | PM.PNPUL ---
Progress Note: A&P Assessment and Plan (1) Influenza: Code(s): J11.1 - Influenza due to unidentified influenza virus with other respiratory manifestations Status: Acute Assessment and Plan: Patient was exposed to a sick granddaughter last week and presented with nausea, vomiting and worsening shortness of breath. CT scan showed no focal consolidations. Currently has influenza B. 01/14: Plan: Will continue Tamiflu 75 mg p.o. b.i.d. at this time I will discontinue systemic and inhaled corticosteroids. There is no evidence of a bacterial infection and at this time I will discontinue ceftriaxone and patient has had some change in her sputum production and will continue azithromycin. I will check a chest x-ray in the morning to look for progression. 01/15/24: Patient tolerated off the BiPAP yesterday afternoon. Patient wore hospital noninvasive ventilator with the above-mentioned AVAPS settings overnight and said she slept well. Currently she is on 2 L nasal cannula saturations 100%. Patient states she is 95% back to her normal breathing state. She does have a dry cough with no hemoptysis. She has no wheezing. White blood cell count 7.5, creatinine 0.6. Chest x-ray today showed hyperinflation with no focal infiltrates or effusions. Plan: Patient is clinically improved. Continue Tamiflu, day 2. Continue azithromycin, day 2. If the patient continues to improve possible discharge on 01/16/2024. 01/16/24: patient continues to improve. Overall she feels fatigued but states that her breathing is 97% back to her baseline. She has no cough with occasional thick yellow phlegm that she is able to expectorate. She is afebrile. White blood cell count 5.7, creatinine 0.6, when I enter the room she was on nasal cannula 2 L with saturations 100%. 2 L is her baseline. CT angiogram of the chest was negative for PE, moderate to severe apical predominant centrilobular emphysema, apical scarring Patient is ready to be discharged from a pulmonary perspective on these pulmonary medications: Tamiflu 75 mg p.o. b.i.d. x3 days Symbicort 160-4.5 at 2 puffs b.i.d. Spiriva HandiHaler 18 mcg once a day. Rescue albuterol 2 puffs q.4 hours p.r.n. shortness of breath or wheezing Montelukast 10 mg a day When she naps or sleeps home noninvasive ventilator through via med with AVAPS AE with a breath rate of AUTO, tidal volume 400, minimum EPAP 5, maximum EPAP 10, minimum pressure support 6, maximum pressure support 16, total maximum pressure 25, rise time 5 and a ramp length off, 3 L bleed in. Oxygen at rest and with activity per formal home O2 assessment which I have ordered. follow-up in the Pulmonary Clinic in 4-6 weeks, I gave her our business card and informed our scheduler maintenance. Discussed with Dr. Frey, will sign off. (2) COPD, severe: Code(s): J44.9 - Chronic obstructive pulmonary disease, unspecified Status: Acute Assessment and Plan: Patient with a history of 40 pack year tobacco use, quit 2013, chronic hypercarbic and hypoxemic respiratory failure on 2 L nasal cannula and a trilogy at home. At home she is maintained on Symbicort 160-4.5 at 2 puffs twice a day and Spiriva HandiHaler. Her CAT score was 14. She had excellent compliance on her noninvasive ventilator. Currently the patient has no wheezing. She tells me she had no worsening hypoxemia prior to admission. 01/14/24: Plan: I will place the patient on DuoNebs q.4 hours standing. As mentioned above I will discontinue systemic and inhaled steroids at this time. I will follow for evidence of bronchospasm. Goal saturation 90-94%. Patient should wear noninvasive ventilator p.r.n. during the day and at night. I have told the patient to have her home noninvasive ventilator brought to the hospital so that once she is stabilized we can transition her back to her home machine. 01/15/24: Patient is clinically improved with no evidence of wheezing. Plan: I will
--- NOTE | 2024-01-16 15:04 | PM.DS ---
DS: Admitting Diagnosis Discharge Date January 16, 2024 Admitting Diagnosis Shortness of breath DS: Discharge Diagnosis Discharge Diagnosis (1) Acute respiratory failure with hypoxia and hypercapnia: Code(s): J96.01 - Acute respiratory failure with hypoxia; J96.02 - Acute respiratory failure with hypercapnia Status: Acute (2) Influenza: Code(s): J11.1 - Influenza due to unidentified influenza virus with other respiratory manifestations Status: Acute (3) Hypoglycemia: Code(s): E16.2 - Hypoglycemia, unspecified Status: Acute (4) Dehydration: Code(s): E86.0 - Dehydration Status: Acute (5) Hyponatremia: Code(s): E87.1 - Hypo-osmolality and hyponatremia Status: Acute (6) COPD exacerbation: Code(s): J44.1 - Chronic obstructive pulmonary disease with (acute) exacerbation Status: Acute DS: Summary Hospital Course Hospital Course: A 68-year-old female with a past medical history hypoxemic and hypercarbic respiratory failure, prior tobacco abuse, COPD on trilogy at home, pulmonary hypertension, presented with nausea and shortness of breath. She was exposed to her granddaughter with URI symptoms. She began to experience cough with yellow sputum production and poor oral intake. She was admitted on 01/14/2024 for flu, COPD exacerbation, acute hypoxic and hypercarbic respiratory failure, hypoglycemia, dehydration, hyponatremia. Pulmonology was consulted. She had her home noninvasive ventilator tested and the settings adjusted. She also had a home O2 eval and oxygen supplementation adjusted. She was treated for flu B with Tamiflu. She was treated for COPD exacerbation with steroids and azithromycin and DuoNeb scheduled. She had an elevated D-dimer and lower extremity Dopplers were negative as well as CT of the chest for pulmonary embolism. Her hypoglycemia due to poor oral intake resolved. Her hyponatremia resolved after fluid resuscitation which thought was due to dehydration. Overall she did well and will be discharged in stable condition to home on 01/16 with new settings for the noninvasive ventilator. She will require continuous oxygen at home with increase in activity. She will receive another 2 days of azithromycin and 3 days of Tamiflu. She will continue her home controller medications and montelukast. She is to follow-up with PCP and then pulmonology in 4-6 weeks. She is a patient Dr. Sanz/Boni's group. Patient was full code during her admission. Time Spent with Patient Time attestation: Total time spent providing and/or coordinating discharge services: Exam Const: General: comfortable and no acute distress Other: A&O x3 Neck: Neck: supple Resp: Effort & Inspection: normal respiratory effort Auscultation: diminished lung sounds Cardio: Rate: regular rate Rhythm: regular rhythm Heart sounds: no gallops, no murmurs and no rubs GI: GI Palp: Yes Soft to palpation and No Tenderness to palpation present (GI) Extrem: General: no edema DS: Data Data Completed and Pending Labs on day of discharge: Labs from last 24 hours 01/16/24 01/16/24 07:14 05:12 WBC 5.7 RBC 4.04 L Hgb 12.1 Hct 38.2 MCV 94.6 MCH 30.0 MCHC 31.7 L RDW 13.3 Plt Count 201 MPV 9.4 Puncture Site Right radial ABG pH 7.390 ABG pCO2 47.5 H ABG pO2 94.5 ABG PO2/FiO2 Ratio 3.15 ABG HCO3 28.1 H ABG O2 Saturation 97.1 ABG O2 Content 16.2 ABG Base Excess 2.5 A-a Gradient 63.6 Oxyhemoglobin 95.6 Total Hemoglobin 12.0 O2 Delivery Device Non-invasive vent O2 Liters/Min Dermatology Sales Representative Vent Rate 16 FiO2 30 Expiratory Pressure 5 Inspiratory Pressure Not Reportable Sodium 140 Potassium 4.6 Chloride 100 Carbon Dioxide 34 H Anion Gap 6 L BUN 17 Creatinine 0.60 L Estim Creat Clear Calc 53 Estimated GFR > 60 Glucose 127 H Calcium 8.6 Preliminary micro results at discharge
--- NOTE | 2024-01-16 15:17 | PCRCNOTE ---
HOME O2 EVAL DONE, 2 L REST AND 3 L ACTIVITY AND NOC WITH TRILOGY UNIT. [facility] IS DME FOR TRILOGY. [facility] FOR O[facility].
--- NOTE | 2024-01-16 15:22 | HOMEO2EVAL ---
Evaluation was performed at [facility] Home Oxygen Evaluation RC: Home Oxygen (O2) Evaluation Start: 01/16/24 09:03 Freq: ONCE Status: Active Protocol: RPE Activity Type Activity Date Activity User E-sign Co-sign Detail Recorded Client Recorded Date Recorded By Document 01/16/24 14:30 [email or web address] [email or web address] 01/16/24 15:21 FREDDIE Document 01/16/24 14:32 [email or web address] [email or web address] 01/16/24 15:21 FREDDIE Document 01/16/24 14:33 [email or web address] [email or web address] 01/16/24 15:21 FREDDIE Document 01/16/24 14:36 [email or web address] [email or web address] 01/16/24 15:21 FREDDIE Document 01/16/24 14:37 [email or web address] [email or web address] 01/16/24 15:21 FREDDIE Document 01/16/24 14:45 [email or web address] [email or web address] 01/16/24 15:21 FREDDIE 01/16/24 01/16/24 01/16/24 14:30 14:32 14:33 Home O2 Evaluation [Oxygen] -Test Phase Resting Resting Resting -Oxygen Delivery Room Air Nasal Cannula Nasal Cannula -Oxygen Flow Rate (L/min) 1 2 [Pulse Oximetry] -Pulse Oximetry (90-100 %) 84 L 86 L 92 [Pulse Rate] -Pulse Rate (60-100 beats/min) 96 96 [Comments] -Home Oxygen Evaluation Comments [Charges] -Evaluation Charges O2 Evaluation by Pulmonary 01/16/24 01/16/24 01/16/24 14:36 14:37 14:45 Home O2 Evaluation [Oxygen] -Test Phase Exercise Exercise Resting -Oxygen Delivery Nasal Cannula Nasal Cannula Nasal Cannula -Oxygen Flow Rate (L/min) 2 3 2 [Pulse Oximetry] -Pulse Oximetry (90-100 %) 87 L 93 93 [Pulse Rate] -Pulse Rate (60-100 beats/min) 106 H 109 H 100 [Comments] -Home Oxygen Evaluation Comments REQUIRES 2 L REST AND 3 L ACTIVITY [Charges] -Evaluation Charges
--- NOTE | 2024-01-16 15:22 | PCRCNOTE ---
PT TO INCREASE O2 FROM 2L TO 3L WITH BLEED INTO TRILOGY UNIT AT NIGHT AND NAPS. FAXED [facility] LINK, NOTES AND NEW ORDER TO [facility], HER O2 DME
== END 2024-01-16 16:00 | disposition home or self-care (01) | DRG 189 ==
LOC: ANHED 01-14 03:05 → ANHIMU 01-14 03:43 → ANH3MEDSUR 01-16 15:03 → ANHIMU 01-17 16:39
PROVIDERS: Internal Medicine; Internal Medicine Pulmonary Disease; Admitting Provider Internal Medicine; Emergency Provider Emergency Medicine; PCP Internal Medicine; Visit Provider General Practice
DX: J96.22 Acute and chronic respiratory failure with hypercapnia (principal); J44.1 Chronic obstructive pulmonary disease with (acute) exacerbation; E87.1 Hypo-osmolality and hyponatremia; Z68.1 Body mass index [BMI] 19.9 or less, adult; J10.1 Influenza due to other identified influenza virus with other respiratory manifestations; J96.21 Acute and chronic respiratory failure with hypoxia; R63.6 Underweight; E86.0 Dehydration; E16.2 Hypoglycemia, unspecified; Z99.81 Dependence on supplemental oxygen; D64.9 Anemia, unspecified; I50.9 Heart failure, unspecified; K21.9 Gastro-esophageal reflux disease without esophagitis; H35.3290 Exudative age-related macular degeneration, unspecified eye, stage unspecified; M81.0 Age-related osteoporosis without current pathological fracture; Z20.822 Contact with and (suspected) exposure to COVID-19; M19.90 Unspecified osteoarthritis, unspecified site; Z86.711 Personal history of pulmonary embolism; Z90.49 Acquired absence of other specified parts of digestive tract; Z87.891 Personal history of nicotine dependence
CPT/HCPCS: 36415; 36600; 71045; 71250; 71275; 74176; 80048; 80053; 81001; 82375; 82805; 82948; 83050; 83690; 83880; 84439; 84443; 84480; 85025; 85027; 85380; 87040; 87070; 87186; 87205; 87637; 92610; 93005; 93970; 94618; 94640; 94762; 96361; 96365; 96367; 96375; 96376; 99285; A9270; G0378; J0456; J0696; J1200; J1650; J2060; J2405; J2930; J3475; J7030; J7512; Q9967

== ENCOUNTER 2024-01-22 20:34 | Outpatient (NON) | payer MEDICARE, MEDICAID, SELFPAY | END 2024-01-22 20:35 | disposition home or self-care (01) | LOC: ANHLAB 20:37 | PROVIDERS: PCP Internal Medicine; Visit Provider Clinical Nurse Specialist | DX: R39.9 Unspecified symptoms and signs involving the genitourinary system (principal) | CPT/HCPCS: 87086; 87088 ==

== ENCOUNTER 2024-03-17 13:32 | Outpatient (CLI) | payer MEDICARE, MEDICAID, SELFPAY ==
--- NOTE | 2024-03-17 13:41 | ECHO_ITS ---
Patient Info Name: Juanis Jim Age: 69 years : 1955 Gender: Female Ht: 61 in Wt: 98 lbs BSA: 1.38 m2 HR: 86 bpm BP: 131 / 79 mmHg Heart Rhythm: Sinus Rhythm Technical Quality: Good Exam Date: 03/17/2024 1:47 PM Exam Location: Echo Lab Patient Status: Outpatient Admit Date: 03/17/2024 Staff Ordering Physician: Linden Ayala DO Compounding Technician: Margareth Chauhan RDCS Attending Provider: iLnden Ayala DO Referring Physician: Lucy GASTON; Exam Type: CA echo doppler color flow Study Info Indications I50.20 - Unspecified systolic (congestive) heart failure Complete two-dimensional, color flow and Doppler transthoracic echocardiogram is performed. Summary 1. Complete two-dimensional, color flow and Doppler transthoracic echocardiogram is performed. 2. Left ventricular chamber dimension is normal. 3. Left ventricular systolic function is normal, estimated at 60-65%. 4. The left ventricular diastolic function is grade I diastolic dysfunction. 5. Right ventricular systolic function is normal. 6. There is mild tricuspid valve regurgitation. Left Ventricle Left ventricular chamber dimension is normal. Left ventricular systolic function is normal, estimated at 60-65%. There is no increased left ventricular wall thickness. The left ventricular diastolic function is grade I diastolic dysfunction. Right Ventricle Right ventricular chamber dimension is normal. Right ventricular systolic function is normal. Left Atria Left atrial chamber dimension is normal. Right Atria Right atrial chamber dimension is normal. Atrial Septum Intact interatrial septum visualized by color flow imaging. Aortic Valve The aortic valve is trileaflet. There is no aortic valve stenosis. There is trace aortic valve regurgitation. Pulmonic Valve The pulmonic valve is not well visualized. There is trace pulmonic regurgitation. Mitral Valve There is trace mitral valve regurgitation. Tricuspid Valve There is mild tricuspid valve regurgitation. Pericardium/Pleural There is no pericardial effusion. Inferior Vena Cava Normal inferior vena cava with >50% collapse upon inspiration consistent with normal right atrial pressure, 3 mmHg. Aorta The aortic root size at the sinus of Valsalva is normal. Left Ventricular Outflow Tract Name Value Normal LVOT 2D LVOT Diameter 2.0 cm LVOT Doppler LVOT Peak Gradient 4 mmHg LVOT Mean Gradient 2 mmHg LVOT VTI 17 cm LVOT VTI/AV VTI Ratio 0.6 LVOT Stroke Volume 55 ml LVOT CO 4.0 l/min LVOT CI 2.9 l/min/m2 Pulmonic Valve Name Value Normal RVOT Doppler RVOT Peak Gradient 2 mmHg PV Doppler PV
== END 2024-03-17 13:33 | disposition home or self-care (01) ==
LOC: ANHCARD 13:34
PROVIDERS: PCP Internal Medicine; Visit Provider Internal Medicine
DX: I50.20 Unspecified systolic (congestive) heart failure (principal); R07.9 Chest pain, unspecified
CPT/HCPCS: 93306

== ENCOUNTER 2024-05-06 13:02 | Inpatient (IN) | payer MEDICARE, MEDICAID, SELFPAY ==
[2024-05-06] VITALS (15 sets, daily range): BP systolic 100–155; BP diastolic 53–115; PULSE 96–120; RESP 15–28; TEMP 36.8–37; O2SAT 91–100; BMI 18.5
--- NOTE | ~2024-05-06 | XR_ITS ---
Portable chest x-ray Comparison: 01/15/2024 Clinical History: Shortness of breath Findings: COPD pattern of the lungs, unchanged. No definite acute pulmonary pathology otherwise. Ca rdiomediastinal silhouette is stable. Bones and soft tissues are unremarkable. Impression: COPD. Reviewed, dictated and finalized at location . Impression: COPD.
--- NOTE | ~2024-05-06 | CT_ITS ---
Clinical Indication: Pulmonary embolus CT Scan of the Chest with Contrast: Technique: Contiguous sections were acquired throughout the chest after intravenous administration of 90 cc of Omnipaque 350. Dose reduction technique was used on this scan by utilizing automated exposu re control and iterative reconstruction technique. The dose-length product (DLP) was 163.10 mGy-cm. COMPARISON: 01/16/2024 Findings: There is no evidence of any significant mediastinal, hilar or axillary lymphadenopathy. There is no f illing defect in the pulmonary arterial tree to suggest pulmonary embolus. There is no evidence of ao rtic dissection or aneurysm. There is no evidence of pleural or pericardial effusion. Severe emphysema with right apical scarring. Images through the upper abdomen reveal no abnormalities. Impression: No evidence of pulmonary embolus, aortic dissection, or aortic aneurysm. Severe emphysema and right apical scarring. Reviewed, dictated and finalized at [facility]. Impression: No evidence of pulmonary embolus, aortic dissection, or aortic aneurysm. Severe emphysema and right apical scarring.
--- NOTE | ~2024-05-06 | NM_ITS ---
MO pulmonary perfusion Ordering provider: Katlin Lowry MD History: . pe . Comparison: September 08, 2021 Technique: A nuclear perfusion scan was performed utilizing 5 mCi of technetium 99m MAA injected int ravenously. Multiple projections of the lungs were subsequently obtained. FINDINGS: Multiple large perfusion defects are seen in both lungs which are unchanged from previous examination . No definite new defects seen IMPRESSION: Indeterminate study with no change from previous examination. Reviewed, dictated and finalized at location A.
--- NOTE | 2024-05-06 13:09 | ECG_ITS ---
Test Date: 2024-05-06 14:33:42 Measurements Intervals [place] Rate: 114 P: 83 FL: 135 QRS: 81 QRSD: 93 T: 55 QT: 334 QTc: 462 Interpretive Statements SINUS TACHYCARDIA POSSIBLE RIGHT ATRIAL ENLARGEMENT [0.25mV P WAVE] POSSIBLE LEFT ATRIAL ENLARGEMENT [-0.1mV P WAVE IN V1/V2] INCOMPLETE RIGHT BUNDLE BRANCH BLOCK ABNORMAL RHYTHM ECG No previous ECG available for comparison Electronically Signed On 05-07-2024 12:34:04 CDT by Charlette Love M.D.
--- NOTE | 2024-05-06 13:15 | ED.SOB ---
HPI - SOB/Dyspnea General Chief Complaint: Shortness of Breath/Dyspnea Stated Complaint: resp distress History of Present Illness HPI Narrative: Patient is a 69-year-old female with history of COPD, uses home trilogy at night and nasal cannula oxygen during the day presents to the ED today with shortness of breath and diarrhea. Patient states her shortness of breath began yesterday, denies improvement with home treatments and DuoNeb by EMS. She notes that significantly hard to breathe. She denies prior need for inpatient BiPAP, does endorse she has been on a ventilator in the past. She endorses subjective fever and chills. She had 1 episode of diarrhea earlier today. She denies any abdominal pain. Denies sick contacts. She denies chest pain. History is somewhat limited due to severity of patient's tachypnea and BiPAP. Related Data Home Medications Medication Instructions Recorded Confirmed mecobalamin (vitamin B12) 1,000 1,000 mcg PO DAILY 10/13/19 02/19/24 mcg disintegrating tablet,sublingual ascorbic acid (vitamin C) 1,000 mg 1 g PO DAILY 01/14/24 02/19/24 capsule cholecalciferol (vitamin D3) 50 50 mcg PO DAILY 01/14/24 02/19/24 mcg (2,000 unit) capsule (Vitamin D3) Allergies Allergy/AdvReac Type Severity Reaction Status Date / Time Iodinated Contrast Media Allergy Severe RASH AND Verified 02/19/24 13:57 SEVERE ITCHING aspirin AdvReac Intermediate Abdominal Verified 02/19/24 13:57 Pain Review of Systems Review of Systems: All systems reviewed & are unremarkable except as noted in HPI and below PMFSH Past Medical History Medical History Adhesive capsulitis of left shoulder Anxiety Arthritis Chronic anemia Chronic obstructive pulmonary disease Congestive heart failure (CHF) Patient denies Emphysema lung Gastroesophageal reflux disease Macular degeneration, age related, exudative Nausea Osteoporosis Protein-calorie malnutrition Pulmonary embolism Patient denies Pulmonary hypertension Systolic CHF Tobacco abuse Vitamin B 12 deficiency Vitamin D deficiency Wears glasses Surgical History Surgical History History of benign breast biopsy History of bladder suspension procedure History of cholecystectomy (2002) History of colonoscopy Family History Family History Father Family history of cardiovascular disease Acute myocardial infarction Hypertension Family history of type 2 diabetes mellitus Mother Hypertension Family history of thyroid disease Family history of multiple sclerosis Sibling Mesothelioma Other Diabetes mellitus Heart disease Neuropathy Skin cancer Social History Social History Social History: Patient smoked 1-2 packs per day for 40 years. She quit in 2013. She lives alone. No alcohol or drug use. Does smoke marijuana on occasion and and did so about 2 months ago. Surrogate medical decision maker: Monique Wright, daughter. Code status: Full code. Smoking packs per day: 1 Smoking cigarettes per day: 20.0 Years smoked: 50 Smoking pack-years: 50.00 Smoking status: Former smoker Tobacco type: cigarettes Second hand tobacco smoke exposure: No Smoking end date: 05/04/14 Alcohol intake: never Substance use: never Substance use type: marijuana Other substance usage details: 2 years ago Do You Feel Safe in your Home?: Yes Lack of Transportation: No Lack of Food: Never True Current Housing: I Have Housing Concerned About Future Housing: No Difficulty Paying Gas/Electric Bills: No Difficulty Paying for Meds: No Currently Unemployed: No Education: High School Diploma/GED Difficulty w/ Childcare or Family Care: No Living arrangements: with family 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
[2024-05-06] MEDS: LACTATED RINGERS 1,000 ML 999 ML IV CONT ×2 (13:18→21:04)
[2024-05-06] MEDS: methylPREDNISolone SOD SUCC 125 MG VIAL IV PUSH (13:18)
[2024-05-06] MEDS: ALBUTEROL SULFATE NEB 2.5 MG/3 ML INH 15 MG INHALATION (13:25)
[2024-05-06] MEDS: IPRATROPIUM BR 0.02% INH SOLN 0.5 MG/2.5 ML VIAL 1.5 MG INHALATION (13:25)
[2024-05-06 13:45] LABS: Fractional Inspired Oxygen 28 %; HCO3 VBG 24.3 mEq/l (24.0-30.0); PCO2 VBG 57.7 mmHg (42.0-48.0); PO2 VBG 35.3 mmHg (35.0-45.0)
[2024-05-06 13:48] LABS: pH VBG 7.242 (7.300-7.400)
[2024-05-06 13:49] LABS: Device BIPAP; Expiratory Pressure 7 cmH2O; Inspiratory Pressure 14 cmH2O
[2024-05-06 13:54] LABS: Basophils Absolute Auto 0.1 K/mm3 (0.0-0.1); Basophils Percent Auto 0.5 % (0.2-1.2); Eosinophils Percent Auto 0.3 % (0-4.4); Hematocrit 38.6 % (37.0-47.0); Immature Granulocyte Absolute 0.03 K/mm3 (0.00-0.031); Immature Granulocyte Percent A 0.3 % (0-0.5); Lymphocytes Absolute Auto 1.53 K/mm3 (0.9-3.2); Lymphocytes Percent Auto 14.7 % (18.3-44.2); Mean Corpuscular HGB Conc 31.1 g/dl (32-36); Mean Corpuscular Hemoglobin 29.6 pg (26-34); Mean Corpuscular Volume 95.3 fl (80-100); Mean Platelet Volume 9.2 fl (7.4-10.4); Monocytes Absolute Auto 1.3 K/mm3 (0.1-0.6); Monocytes Percent Auto 12.1 % (2.6-8.5); Neutrophils Absolute Auto 7.5 K/mm3 (1.3-6.7); Neutrophils Percent Auto 72.1 % (45.5-73.1); Platelet Count Result 199 k/mm3 (150-375); Red Blood Count 4.05 M/mm3 (4.2-5.4); Red Cell Distribution Width 13.1 % (11.5-14.5); White Blood Count 10.4 K/mm3 (4.5-10.0)
[2024-05-06] MEDS: ONDANSETRON INJ 4 MG/2 ML VIAL IV PUSH (13:54)
[2024-05-06 14:15] LABS: Alanine Aminotransferase 13 U/L (6-35); Albumin Level 4.4 g/dL (3.5-5.1); Alkaline Phosphatase 57 U/L (38-126); Anion Gap 13 mmol/L (4-12); Aspartate Amino Transferase 28 U/L (14-36); Bilirubin,Total 0.7 mg/dL (0.2-1.3); Blood Urea Nitrogen 20 mg/dL (7-17); Calcium 8.5 mg/dL (8.4-10.2); Carbon Dioxide 25 mmol/L (22-30); Chloride 97 mmol/L (98-107); Estimated CRCL calculation 43 ml/min; Estimated Glomerular Filt Rate > 60; Glucose 64 mg/dL (65-110); Lactic Acid Reflex 0.8 mmol/L (0.7-2.0); Lipase 30 U/L (23-300); Potassium 3.7 mmol/L (3.4-5.0); Sodium 135 mmol/L (137-145)
[2024-05-06 14:22] LABS: NT Pro B Type Natriuretic Pept 498 pg/mL (19.9-100)
[2024-05-06 14:25] LABS: Troponin I < 0.012 ng/mL (0.000-0.034)
[2024-05-06 14:30] LABS: D Dimer 1.07 ug/mL (<0.48)
[2024-05-06] MEDS: diphenhydrAMINE HCl INJ 50 MG/ML VIAL IV PUSH (14:52)
[2024-05-06 15:31] LABS: Influenza A QL RT-PCR Negative (Negative); Influenza B QL RT-PCR Negative (Negative); RSV RNA, RT-PCR Negative (Negative); SARS-CoV-2 RNA PCR Negative (Negative)
[2024-05-06 15:57] LABS: Appearance Urine Clear (Clear); Bacteria Urine None Seen /hpf; Bilirubin Urine Negative (Negative); Blood Urine Trace (Negative); Color Urine Yellow (Yellow); Glucose Urine UA Negative (Negative); Ketones Urine 4+ mg/dL (Negative); Leukocyte Esterase Ur Negative LEU/UL (Negative); Nitrate Urine Negative (Negative); Non Pathogenic Casts 0-2; Protein Urine 1+ mg/dL (Negative); Specific Grav Ur 1.016 (1.001-1.035); Squamous Epithelial Cell Urine None Seen /hpf (Few); Urobilinogen Urine 0.2 mg/dL (<2.0); WBC Urine 0-5 /hpf (0-3); pH Urine 5.5 (5.0-9.0)
[2024-05-06 16:23] LABS: Add Urine Microscopic? YES
[2024-05-06] MEDS: AMOXICILLIN/CLAVULANATE K 875-125 MG TAB 1 TABLET PO (17:21)
[2024-05-06 17:50] LABS: Fractional Inspired Oxygen 28 %; HCO3 VBG 23.5 mEq/l (24.0-30.0); PCO2 VBG 54.4 mmHg (42.0-48.0); PO2 VBG 43.4 mmHg (35.0-45.0); pH VBG 7.254 (7.300-7.400)
[2024-05-06 17:52] LABS: Device BIPAP; Expiratory Pressure 6 cmH2O; Inspiratory Pressure 14 cmH2O
--- NOTE | 2024-05-06 19:30 | PM.IMHP ---
H&P: HPI History of Present Illness Date/Time: 05/06/24 19:30 Chief Complaint: sob Narrative: this is a 69-year-old female with past medical history significant for COPD/emphysema, protein calorie malnutrition, osteoporosis, congestive heart failure, chronic anemia, pulmonary hypertension, tobacco dependence. Patient presents to the emergency room due to shortness of breath patient states that there was a flu going around in her family and eventually she caught it she has been having shortness of breath however today was intense she was unable to catch her breath. In emergency room patient require BiPAP. Portable chest x-ray Comparison: 01/15/2024 Clinical History: Shortness of breath Findings: COPD pattern of the lungs, unchanged. No definite acute pulmonary pathology otherwise. Cardiomediastinal silhouette is stable. Bones and soft tissues are unremarkable. Impression: COPD. NM pulmonary perfusion Ordering provider: Katlin Lowry MD History: . pe . Comparison: September 08, 2021 Technique: A nuclear perfusion scan was performed utilizing 5 mCi of technetium 99m MAA injected intravenously. Multiple projections of the lungs were subsequently obtained. FINDINGS: Multiple large perfusion defects are seen in both lungs which are unchanged from previous examination. No definite new defects seen IMPRESSION: Indeterminate study with no change from previous examination. Review of Systems Review of Systems: sob Constitutional: Constitutional: Reports chills, Reports fatigue, Reports fever(s), Reports malaise, Reports night sweats, Reports poor appetite and Reports weakness Eyes: Eyes: Denies change in vision ENT: Denies dysphagia, Denies vertigo, Denies dizziness and Denies odynophagia Cardiovascular: Cardiovascular: Denies chest pain, Denies leg edema, Denies radiating jaw, neck or arm pain and Denies palpitations Respiratory: Respiratory: Reports dyspnea and Reports wheezing Gastrointestinal: Gastrointestinal: Denies abdominal pain, Denies dyspepsia, Denies heartburn, Denies diarrhea, Denies nausea and Denies vomiting Genitourinary: Genitourinary: Denies dysuria Musculoskeletal: Musculoskeletal: Reports myalgias Integumentary/Breasts: Skin/Breast: Denies rash Neurologic: Denies focal weakness and Denies Sensory deficit (Neuro) Psychiatric: Psychiatric: Reports no additional psychiatric complaints and Reports as per HPI Endocrine: Endocrine: Denies cold intolerance, Denies heat intolerance, Denies polyphagia, Denies polydipsia and Denies polyuria Hematologic/Lymphatic: Hematologic/Lymphatic: Reports no additional hematologic/lymphatic complaints and Reports as per HPI Allergic/Immunologic: Allergic/Immunologic: Reports no additional allergic/immunologic complaints and Reports as per HPI [facility] Past Medical History Medical History Adhesive capsulitis of left shoulder Anxiety Arthritis Chronic anemia Chronic obstructive pulmonary disease Congestive heart failure (CHF) Patient denies Emphysema lung Gastroesophageal reflux disease Macular degeneration, age related, exudative Nausea Osteoporosis Protein-calorie malnutrition Pulmonary embolism Patient denies Pulmonary hypertension Systolic CHF Tobacco abuse Vitamin B 12 deficiency Vitamin D deficiency Wears glasses Surgical History Surgical History History of benign breast biopsy History of bladder suspension procedure History of cholecystectomy (2002) History of colonoscopy Family History Family History Father Family history of cardiovascular disease Acute myocardial infarction Hypertension Family history of type 2 diabetes mellitus Mother Hypertension Family history of thyroid disease Family history of multiple sclerosis Siblin
[2024-05-06] MEDS: ENOXAPARIN 40 MG/0.4 ML SYRINGE SUB-Q (19:39)
--- NOTE | 2024-05-06 23:32 | PC.NURSE ---
This patient, Juanis Jim, was admitted to 3 [facility] Surg Room 306-02. Patient/family oriented to hospital policies and general routines including ID bracelet, bed and alarms, visiting hours, pain management, procedures, bathroom and other care routines, personal items, smoking policy, room service/diet, and visiting hours. Information on how to activate the Rapid Response Team has been discussed. Patient/Family are encouraged to report perceived risks to care and to ask questions if they do not understand what they are told or what they should do.
[2024-05-07] VITALS (16 sets, daily range): BP systolic 107–116; BP diastolic 45–56; PULSE 85–107; RESP 18–22; TEMP 36.7–36.9; O2SAT 97–100
[2024-05-07 00:02] LABS: INR 1.1; Prothrombin Time 14.6 Seconds (11.1-14.7)
[2024-05-07 00:04] LABS: Partial Thromboplastin Time 69.2 Seconds (22.3-36.8)
--- NOTE | 2024-05-07 00:22 | ADMGEN ---
This patient, Juanis Jim, was admitted to 3 [facility] Surg Room 306-02. Patient/family oriented to hospital policies and general routines including ID bracelet, bed and alarms, visiting hours, pain management, procedures, bathroom and other care routines, personal items, smoking policy, room service/diet, and visiting hours. Information on how to activate the Rapid Response Team has been discussed. Patient/Family are encouraged to report perceived risks to care and to ask questions if they do not understand what they are told or what they should do.
[2024-05-07] MEDS: cefTRIAXone 2 GM/NS 100 ML 2 GM/100 ML BAG IVPB ×2 (00:51→20:21)
[2024-05-07] MEDS: predniSONE 40 MG, predniSONE 10 MG 50 MG PO ×4 (00:51→17:54)
[2024-05-07] MEDS: AZITHROMYCIN 500 MG/NS 250 ML 500 MG/250 ML BAG 250 MG IVPB ×2 (00:51→20:21)
[2024-05-07] MEDS: ONDANSETRON INJ 4 MG/2 ML VIAL IV PUSH ×2 (03:40→22:53)
--- NOTE | 2024-05-07 08:21 | PM.IMPN ---
Progress Note: A&P Assessment and Plan (1) Acute hypoxic respiratory failure: Code(s): J96.01 - Acute respiratory failure with hypoxia Status: Acute Assessment and Plan: currently on oxygen by nasal cannula V/Q intermediate CTA ordered allergy to contrast and hence on protocol (2) Acute exacerbation of chronic obstructive pulmonary disease: Code(s): J44.1 - Chronic obstructive pulmonary disease with (acute) exacerbation Status: Acute Assessment and Plan: admit to med tele scheduled breathing treatments systemic steroidOn oral prednisone per protocol and remains will continue same a started on antibiotics [place] consultation (3) Protein-calorie malnutrition: Qualifiers: Protein-calorie malnutrition severity: mild Qualified Code(s): E44.1 - Mild protein-calorie malnutrition Code(s): E46 - Unspecified protein-calorie malnutrition Status: Acute Assessment and Plan: liberalize diet (4) GERD (gastroesophageal reflux disease): Qualifiers: Esophagitis presence: esophagitis presence not specified Qualified Code(s): K21.9 - Gastro-esophageal reflux disease without esophagitis Code(s): K21.9 - Gastro-esophageal reflux disease without esophagitis Status: Acute Assessment and Plan: PPI Plan DVT prophylaxis Lovenox treatment dose until PE ruled out Subjective Date/time seen: 05/07/24 08:21 Interval history: No overnight events. Still feels short of breath. Cough present. VQ scan and chest x-ray reviewed with the patient. Plan for CTA noted. Review of Systems Review of Systems: All systems reviewed & are unremarkable except as noted in HPI and below Exam Narrative: GENERAL: Well-appearing, well-nourished, Not in acute distress HEAD: Normocephalic, atraumatic. EYES: PERRLA and EOMI. ENT: Nares clear. Mucous membranes dry. NECK: Supple. CHEST: Mildly Tachypneic,Diminished breath sounds bilaterally no wheezes HEART: Tachycardic. Normal peripheral pulses. ABDOMEN: Soft, nontender, nondistended. EXTREMITIES: Normal range of motion. No lower extremity edema SKIN: Warm, dry, no rash. NEURO: No focal deficits. Alert and oriented x3. Objective Data Vital Signs Vital Signs: Vital Signs - 24 hr 05/06/24 12:59 05/06/24 13:05 05/06/24 13:10 Temperature 98.2 F Pulse Rate 103 H 117 H 120 H Respiratory Rate 28 H 23 H 18 Blood Pressure 155/115 H Pulse Oximetry 98 99 95 Oxygen Delivery CPAP BiPAP 05/06/24 13:30 05/06/24 13:29 05/06/24 13:30 Temperature Pulse Rate 109 H 110 H Respiratory Rate 19 Blood Pressure Pulse Oximetry 98 Oxygen Delivery BiPAP 05/06/24 13:30 05/06/24 14:52 05/06/24 14:55 Temperature Pulse Rate 110 H 115 H 117 H Respiratory Rate 19 17 22 H Blood Pressure 127/67 104/53 L Pulse Oximetry 98 96 Oxygen Delivery 05/06/24 14:57 05/06/24 16:25 05/06/24 17:21 Temperature Pulse Rate 117 H 111 H 109 H Respiratory Rate 20 17 15 Blood Pressure 103/63 Pulse Oximetry 99 95 94 Oxygen Delivery BiPAP 05/06/24 18:26 05/06/24 18:30 05/06/24 19:54 Temperature Pulse Rate 102 H 105 H 100 Respiratory Rate 19 20 Blood Pressure 100/56 L Pulse Oximetry 100 98 100 Oxygen Delivery BiPAP Nasal Cannula 05/06/24 21:03 05/06/24 23:10 05/07/24 00:00 Temperature 98.6 F Pulse Rate 96 102 H 93 Respiratory Rate 19 24 H Blood Pressure 105/59 L 130/69 Pulse Oximetry 100 91 Oxygen Delivery 05/07/24 06:00 05/07/24 04:00 Temperature 98.0 F Pulse Rate 90 85 Respiratory Rate 22 H Blood Pressure 112/55 L Pulse Oximetry 100 Oxygen Delivery Intake/Output Intake/Output: Intake & Output 05/04/24 05/05/24 05/06/24 05/07/24 23:59 23:59 23:59 23:59 Intake Total 1999 150 Output Total 300 Balance 1999 -150 Meds/Results Medications: Active Medications Generic Name Dose Route Start Last Admin Trade Name Freq
[2024-05-07] MEDS: ALPRAZolam (*CRX) 0.25 MG TABLET PO ×2 (09:07→17:53)
[2024-05-07] MEDS: MONTELUKAST SODIUM 10 MG TABLET PO (09:07)
[2024-05-07] MEDS: SERTRALINE HCL 50 MG TABLET PO (09:07)
[2024-05-07] MEDS: ASCORBIC ACID 500 MG TABLET 1000 MG PO (09:07)
[2024-05-07] MEDS: PANTOPRAZOLE 40 MG TABLET PO ×2 (09:07→20:22)
[2024-05-07] MEDS: CHOLECALCIFEROL 1,000 UNITS TABLET 2000 UNITS PO (09:07)
[2024-05-07] MEDS: CYANOCOBALAMIN 1,000 MCG TABLET 1000 MCG PO (09:07)
[2024-05-07] MEDS: ENOXAPARIN 40 MG/0.4 ML SYRINGE SUB-Q ×2 (09:09→20:22)
[2024-05-07] MEDS: IPRATROPIUM 0.5 MG/ALBUTEROL SULFATE 2.5 MG AMPUL.NEB 3 ML INHALATION ×3 (09:20→20:34)
[2024-05-07] MEDS: FLUTICASONE/SALMETEROL 115-21 MCG INHALER 1 PUFF 2 PUFF INHALATION ×2 (09:20→20:37)
--- NOTE | 2024-05-07 12:42 | PM.CNPUL ---
Assessment and Plan Assessment and plan (1) Acute exacerbation of chronic obstructive pulmonary disease: Code(s): J44.1 - Chronic obstructive pulmonary disease with (acute) exacerbation Status: Acute Assessment and Plan: Patient with a history of 40 pack year tobacco use, quit 2013, chronic hypercarbic and hypoxemic respiratory failure on 2 L nasal cannula at rest, 3 L with activity and 2 L bleed in at night with her home noninvasive ventilator. At home she is maintained on Symbicort 160-4.5 at 2 puffs twice a day and Spiriva HandiHaler. Currently the patient presents with 6 day worsening cough, phlegm production that changed from clear to yellow, fever, shortness of breath. Her COVID influenza and RSV RT PCR studies are negative. Plan: I will treat the patient for COPD exacerbation. Her clinical history is not consistent with PE and her perfusion scan is unchanged. There is no evidence of fluid overload. She started on Solu-Medrol on 05/06/2024 and is currently on prednisone 40 mg p.o. q.day. I will continue DuoNebs and increase her frequency from Q 6 to q.4 hours. Patient is on ceftriaxone and azithromycin both started 613 for possible pneumonia and will continue these antibiotics. Will continue her home montelukast. I will send a respiratory pathogen panel, urine for Legionella, urine for pneumococcal and mycoplasma IgM assay. Goal saturation 90-94%. Currently she is on 2 L nasal cannula with saturations 93%. Will follow with you. (2) Acute respiratory failure with hypoxia and hypercapnia: Code(s): J96.01 - Acute respiratory failure with hypoxia; J96.02 - Acute respiratory failure with hypercapnia Status: Acute Assessment and Plan: Patient has COPD with chronic hypercarbic respiratory failure on home noninvasive ventilator with an AVAPS AE mode with an auto rate, tidal volume 400, EPAP minimum 5, EPAP maximum 10, IPAP minimum 6, IPAP maximum 16 with average respiratory rate 15, average EPAP 6, average IPAP 18. She uses 2 L bleed in at night. Plan: Patient says her home noninvasive ventilator is working well and she has brought this to the hospital and I will continue this tonight with 2 L bleed in. History of Present Illness History of Present Illness Consult date: 05/07/24 Chief complaint: COPD Exacerbation Narrative: 05/07/2024: This is a new pulmonary consult for COPD exacerbation. Patient is followed in the [facility] in last seen on 02/19/2024: This is a copy of that note. ESTABLISHED: Juanis Jim is 69-years old, no oxygen with her today, saturation 80% on room air. She needs to use O2 with exertion. She has lots of coughing, thick green sputum, has a vibratory valve at home, needs to use it to assist with secretions. Compliance reviewed for her [employer] home nppv. She was in the hospital in January 14- with acute respiratory failure and influenza B infection with a COPD exacerbation. While she was in the hospital she had an overnight oximetry with her own noninvasive ventilator with 2 L bleed in, lowest saturation was 58% with 7 minutes below 88%. She had an arterial blood gas prior to removing the mask on the noninvasive device, pH 7.39/pCO2 48/PO2 95. She had a CT angio of the chest was negative for PE, showed moderate to severe apical predominant centrilobular emphysema with apical scarring. compliance report shows great compliance; eneral she sleeping about 7 hours a night and she is using it essentially every night. From November 06 through February 02 she has used it 99% the days, average usage 7 hours 46 minutes, 98% the days greater than 4 hours, 3 L a minute at night oxygen. She takes Benadryl at 9:00 p.m. Average IPAP is 18, average EPAP 6, breaths per minute 16, 93% of the breasts are triggered, peak flow average is 25 liters/minute, average leak is 24 L, average tidal volume 400 mils, average minute ventilation 6.6 liters/minute Was in the hospi
[2024-05-07] MEDS: oxyBUTYnin CHLORIDE 5 MG TABLET PO (20:22)
[2024-05-07] MEDS: MIRTAZAPINE 15 MG TABLET PO (20:22)
[2024-05-07] MEDS: ACETAMINOPHEN 500 MG TABLET 1000 MG PO (21:32)
[2024-05-08] VITALS (12 sets, daily range): BP systolic 102–134; BP diastolic 58–75; PULSE 75–111; RESP 12–16; TEMP 36.6–36.8; O2SAT 93–100; BMI 18.5
[2024-05-08 05:44] LABS: Alveolar/Arterial O2 Gradient 11.7 mmHg; Fractional Inspired Oxygen 32 %; HCO3 ABG 29.9 mEq/l (22.0-26.0); Oxygen Content ABG 16.3 %vol (16.0-22.0); Oxygen Saturation ABG 98.7 % (95.0-100.0); Oxyhemoglobin 98.1 % THb (90.0-100.0); PCO2 ABG 57.3 mmHg (35.0-45.0); PO2 ABG 149.4 mmHg (80.0-100.0); PO2 FiO2 Ratio Arterial Blood 4.67 %; Total Hemoglobin 11.6 g/dL (12.0-18.0); pH ABG 7.336 (7.350-7.450)
[2024-05-08 05:47] LABS: Device NASAL CANNULA; Modified Allen's Test Pass; Site Drawn RIGHT RADIAL
[2024-05-08 07:46] LABS: Basophils Percent Auto 0.2 % (0.2-1.2); Hematocrit 35.1 % (37.0-47.0); Hemoglobin 10.9 g/dL (12.0-15.0); Immature Granulocyte Absolute 0.04 K/mm3 (0.00-0.031); Immature Granulocyte Percent A 0.6 % (0-0.5); Lymphocytes Absolute Auto 0.45 K/mm3 (0.9-3.2); Lymphocytes Percent Auto 7.1 % (18.3-44.2); Mean Corpuscular HGB Conc 31.1 g/dl (32-36); Mean Corpuscular Hemoglobin 28.8 pg (26-34); Mean Corpuscular Volume 92.9 fl (80-100); Mean Platelet Volume 9.6 fl (7.4-10.4); Monocytes Absolute Auto 0.7 K/mm3 (0.1-0.6); Monocytes Percent Auto 10.3 % (2.6-8.5); Neutrophils Absolute Auto 5.2 K/mm3 (1.3-6.7); Neutrophils Percent Auto 81.8 % (45.5-73.1); Platelet Count Result 197 k/mm3 (150-375); Red Blood Count 3.78 M/mm3 (4.2-5.4); Red Cell Distribution Width 13.2 % (11.5-14.5); White Blood Count 6.3 K/mm3 (4.5-10.0)
[2024-05-08 08:13] LABS: Alanine Aminotransferase 17 U/L (6-35); Albumin Level 3.7 g/dL (3.5-5.1); Alkaline Phosphatase 44 U/L (38-126); Anion Gap 5 mmol/L (4-12); Aspartate Amino Transferase 32 U/L (14-36); Bilirubin,Total 0.3 mg/dL (0.2-1.3); Blood Urea Nitrogen 20 mg/dL (7-17); Calcium 8.5 mg/dL (8.4-10.2); Carbon Dioxide 31 mmol/L (22-30); Chloride 102 mmol/L (98-107); Estimated CRCL calculation 53 ml/min; Estimated Glomerular Filt Rate > 60; Glucose 132 mg/dL (65-110); Magnesium 2.3 mg/dL (1.6-2.3); Potassium 3.9 mmol/L (3.4-5.0); Sodium 138 mmol/L (137-145)
[2024-05-08] MEDS: CHOLECALCIFEROL 1,000 UNITS TABLET 2000 UNITS PO (08:22)
[2024-05-08] MEDS: ASCORBIC ACID 500 MG TABLET 1000 MG PO (08:22)
[2024-05-08] MEDS: SERTRALINE HCL 50 MG TABLET PO (08:22)
[2024-05-08] MEDS: CYANOCOBALAMIN 1,000 MCG TABLET 1000 MCG PO (08:22)
[2024-05-08] MEDS: ENOXAPARIN 40 MG/0.4 ML SYRINGE SUB-Q (08:23)
[2024-05-08] MEDS: MONTELUKAST SODIUM 10 MG TABLET PO (08:23)
[2024-05-08] MEDS: ALPRAZolam (*CRX) 0.25 MG TABLET PO ×2 (08:23→16:24)
[2024-05-08] MEDS: PANTOPRAZOLE 40 MG TABLET PO ×2 (08:23→21:32)
--- NOTE | 2024-05-08 10:13 | PM.PNPUL ---
Progress Note: A&P Assessment and Plan (1) Acute exacerbation of chronic obstructive pulmonary disease: Code(s): J44.1 - Chronic obstructive pulmonary disease with (acute) exacerbation Status: Acute Assessment and Plan: Patient with a history of 40 pack year tobacco use, quit 2013, chronic hypercarbic and hypoxemic respiratory failure on 2 L nasal cannula at rest, 3 L with activity and 2 L bleed in at night with her home noninvasive ventilator. At home she is maintained on Symbicort 160-4.5 at 2 puffs twice a day and Spiriva HandiHaler. Currently the patient presents with 6 day worsening cough, phlegm production that changed from clear to yellow, fever, shortness of breath. Her COVID influenza and RSV RT PCR studies are negative. Plan: I will treat the patient for COPD exacerbation. Her clinical history is not consistent with PE and her perfusion scan is unchanged. There is no evidence of fluid overload. She started on Solu-Medrol on 05/06/2024 and is currently on prednisone 40 mg p.o. q.day. I will continue DuoNebs and increase her frequency from Q 6 to q.4 hours. Patient is on ceftriaxone and azithromycin both started 613 for possible pneumonia and will continue these antibiotics. Will continue her home montelukast. I will send a respiratory pathogen panel, urine for Legionella, urine for pneumococcal and mycoplasma IgM assay. Goal saturation 90-94%. Currently she is on 2 L nasal cannula with saturations 93%. later in the day the patient had a CT angiogram of the chest which was negative for PE, moderate apical predominant centrilobular emphysema no focal infiltrates suggestive of pneumonia. Later in the day obtained a download which demonstrated she is on AVAPS AE Breath rate is auto. Tidal volume 400, EPAP minimum 5, EPAP maximum 10, pressure support minimum 6, pressure support maximum 16, maximum pressure 22, rise time 6. she has excellent compliance a greater than 4 hours at 99%, with adequate pressures and low leak (see below). 05/08/24: Patient continues to slowly improve. States she has 50% back to her normal. Her cough is increased but she has no phlegm today. Complains that prednisone and nebulizer have made her jittery. She is afebrile. White blood cell count 6.3, creatinine 0.6. when I enter the room the patient was on 3 L nasal cannula I decreased her to 2 L nasal cannula and after 8 minutes her saturations were 95%. Patient wore her home noninvasive ventilator with AVAPS AE mode and 2 L bleed in and slept well. ABG prior to removal of 7.34/57/149. Patient feels as if she could tolerate more tidal volume. Plan: I will change her to prednisone 40 mg p.o. q.day with the next dose on morning of 05/09/2024 as she received a dose last night for CTA scan. I will discontinue her DuoNebs and place her on Symbicort 230-21 at 1 puff b.i.d. and Incruse Ellipta 62.5 (equivalent to her home regimen of Symbicort 160-4.5 at 2 puffs b.i.d. and Spiriva HandiHaler). I will order a home O2 assessment today in anticipation of discharge over the weekend. PT consult has been placed for ambulation. Patient is on ceftriaxone and azithromycin, day 2. She is afebrile, leukocytosis has improved, blood cultures are negative and CT scan without focal infiltrate. If she remains clinically stable on 05/09/2024 will discontinue ceftriaxone. Plan on continuing azithromycin for a total of [address] Alvarez. Will follow with you. (2) Acute respiratory failure with hypoxia and hypercapnia: Code(s): J96.01 - Acute respiratory failure with hypoxia; J96.02 - Acute respiratory failure with hypercapnia Status: Acute Assessment and Plan: Patient has COPD with chronic hypercarbic respiratory failure on home noninvasive ventilator with an AVAPS AE mode with an auto rate, tidal volume 400, EPAP minimum 5, EPAP maximum 10, IPAP minimum 6, IPAP maximum 16 with average respiratory rate
[2024-05-08] MEDS: UMECLIDINIUM BROMIDE 62.5 MCG ELLIPTA 1 PUFF INHALATION (10:43)
[2024-05-08] MEDS: FLUTICASONE/SALMETEROL 230-21 MCG INHALER 1 PUFF INHALATION ×2 (10:43→20:10)
--- NOTE | 2024-05-08 14:12 | PM.IMPN ---
Progress Note: A&P Assessment and Plan (1) Acute hypoxic respiratory failure: Code(s): J96.01 - Acute respiratory failure with hypoxia Status: Acute Assessment and Plan: currently on oxygen by nasal cannula V/Q intermediate CTA ordered allergy to contrast and hence on protocol CTA came back negative for PE (2) Acute exacerbation of chronic obstructive pulmonary disease: Code(s): J44.1 - Chronic obstructive pulmonary disease with (acute) exacerbation Status: Acute Assessment and Plan: [facility] scheduled breathing treatments systemic steroidOn oral prednisone per protocol and remains will continue same a started on antibiotics Pulmonary consultation (3) Protein-calorie malnutrition: Qualifiers: Protein-calorie malnutrition severity: mild Qualified Code(s): E44.1 - Mild protein-calorie malnutrition Code(s): E46 - Unspecified protein-calorie malnutrition Status: Acute Assessment and Plan: liberalize diet (4) GERD (gastroesophageal reflux disease): Qualifiers: Esophagitis presence: esophagitis presence not specified Qualified Code(s): K21.9 - Gastro-esophageal reflux disease without esophagitis Code(s): K21.9 - Gastro-esophageal reflux disease without esophagitis Status: Acute Assessment and Plan: PPI Plan DVT prophylaxis Lovenox treatment dose until PE ruled out Subjective Date/time seen: 05/08/24 14:12 Interval history: Feels better today. Discussed with Pulmonary. On 3 L oxygen via nasal cannula. CT scan reviewed Review of Systems Review of Systems: All systems reviewed & are unremarkable except as noted in HPI and below Exam Narrative: GENERAL: Well-appearing, well-nourished, Not in acute distress HEAD: Normocephalic, atraumatic. EYES: PERRLA and EOMI. ENT: Nares clear. Mucous membranes dry. NECK: Supple. CHEST: Mildly Tachypneic,Diminished breath sounds bilaterally no wheezes HEART: Tachycardic. Normal peripheral pulses. ABDOMEN: Soft, nontender, nondistended. EXTREMITIES: Normal range of motion. No lower extremity edema SKIN: Warm, dry, no rash. NEURO: No focal deficits. Alert and oriented x3. Objective Data Vital Signs Vital Signs: Vital Signs - 24 hr 05/07/24 14:32 05/07/24 14:42 05/07/24 16:00 Temperature Pulse Rate 96 104 H 100 Respiratory Rate 20 20 Blood Pressure Pulse Oximetry Oxygen Delivery Oxygen Flow Rate 05/07/24 20:29 05/07/24 20:37 05/07/24 20:37 Temperature 98.0 F Pulse Rate 98 100 100 Respiratory Rate 18 20 Blood Pressure 107/56 L Pulse Oximetry 97 97 Oxygen Delivery Nasal Cannula Oxygen Flow Rate 3 05/07/24 20:45 05/07/24 23:48 05/07/24 20:00 Temperature Pulse Rate 97 94 96 Respiratory Rate 20 Blood Pressure Pulse Oximetry Oxygen Delivery CPAP Oxygen Flow Rate 05/08/24 00:00 05/08/24 04:00 05/08/24 06:00 Temperature 97.9 F Pulse Rate 92 75 84 Respiratory Rate 16 Blood Pressure 120/69 Pulse Oximetry 100 Oxygen Delivery Oxygen Flow Rate 05/08/24 09:06 05/08/24 08:15 05/08/24 13:54 Temperature 98.3 F Pulse Rate 100 Respiratory Rate 16 Blood Pressure 102/58 L Pulse Oximetry 97 97 96 Oxygen Delivery Nasal Cannula Nasal Cannula Oxygen Flow Rate 3 3 Intake/Output Intake/Output: Intake & Output 05/05/24 05/06/24 05/07/24 05/08/24 23:59 23:59 23:59 23:59 Intake Total 1999 2280 1570 Output Total 300 Balance 1999 1980 1570 Meds/Results Medications: Active Medications Generic Name Dose Route Start Last Admin Trade Name Vladislav PRN Reason Stop Dose Admin Alendronate Sodium 70 mg 05/10/24 06:30 Alendronate Sodium 70 Mg Tablet PO [email or web address]@[id number] [facility] [place] Alprazolam 0.25 mg 05/07/24 09:00 05/08/24 08:23 Alprazolam (*Crx) 0.25 Mg Tablet PO 0.25 mg BID [facility] Administration Ascorbic Acid 1,000 mg 05/07/24 09:00 05/08/24 08:
[2024-05-08] MEDS: ACETAMINOPHEN 325 MG TABLET 650 MG PO (17:34)
[2024-05-08] MEDS: MIRTAZAPINE 15 MG TABLET PO (21:32)
[2024-05-08] MEDS: oxyBUTYnin CHLORIDE 5 MG TABLET PO (21:32)
[2024-05-08] MEDS: cefTRIAXone 2 GM/NS 100 ML 2 GM/100 ML BAG IVPB (21:33)
[2024-05-08] MEDS: AZITHROMYCIN 500 MG/NS 250 ML 500 MG/250 ML BAG 250 MG IVPB (21:33)
[2024-05-08] MEDS: ONDANSETRON INJ 4 MG/2 ML VIAL IV PUSH (22:12)
[2024-05-09] VITALS (11 sets, daily range): BP systolic 108–117; BP diastolic 54–60; PULSE 81–113; RESP 16–20; TEMP 36.4–36.7; O2SAT 90–97
[2024-05-09 04:47] LABS: Alveolar/Arterial O2 Gradient 58.5 mmHg; Base Excess ABG 10.3 mEq/l (+/-2.0); Fractional Inspired Oxygen 28 %; Oxygen Content ABG 15.1 %vol (16.0-22.0); Oxygen Saturation ABG 93.6 % (95.0-100.0); Oxyhemoglobin 93.6 % THb (90.0-100.0); PO2 ABG 69.8 mmHg (80.0-100.0); PO2 FiO2 Ratio Arterial Blood 2.49 %; Total Hemoglobin 11.4 g/dL (12.0-18.0); pH ABG 7.404 (7.350-7.450)
[2024-05-09 04:51] LABS: Device BIPAP; Modified Allen's Test Pass; PCO2 ABG 60.5 mmHg (35.0-45.0); Site Drawn RIGHT RADIAL
[2024-05-09 07:01] LABS: Alanine Aminotransferase 16 U/L (6-35); Albumin Level 3.2 g/dL (3.5-5.1); Alkaline Phosphatase 38 U/L (38-126); Anion Gap 3 mmol/L (4-12); Aspartate Amino Transferase 31 U/L (14-36); Bilirubin,Total 0.3 mg/dL (0.2-1.3); Blood Urea Nitrogen 20 mg/dL (7-17); Carbon Dioxide 35 mmol/L (22-30); Chloride 102 mmol/L (98-107); Estimated CRCL calculation 46 ml/min; Estimated Glomerular Filt Rate > 60; Glucose 84 mg/dL (65-110); Potassium 3.4 mmol/L (3.4-5.0); Sodium 140 mmol/L (137-145)
[2024-05-09 07:13] LABS: Basophils Percent Auto 0.3 % (0.2-1.2); Eosinophils Percent Auto 0.8 % (0-4.4); Hematocrit 32.5 % (37.0-47.0); Hemoglobin 10.2 g/dL (12.0-15.0); Immature Granulocyte Absolute 0.02 K/mm3 (0.00-0.031); Immature Granulocyte Percent A 0.5 % (0-0.5); Lymphocytes Absolute Auto 1.16 K/mm3 (0.9-3.2); Lymphocytes Percent Auto 29.2 % (18.3-44.2); Mean Corpuscular HGB Conc 31.4 g/dl (32-36); Mean Corpuscular Hemoglobin 29.4 pg (26-34); Mean Corpuscular Volume 93.7 fl (80-100); Mean Platelet Volume 9.8 fl (7.4-10.4); Monocytes Absolute Auto 0.5 K/mm3 (0.1-0.6); Monocytes Percent Auto 13.4 % (2.6-8.5); Neutrophils Absolute Auto 2.2 K/mm3 (1.3-6.7); Neutrophils Percent Auto 55.8 % (45.5-73.1); Platelet Count Result 173 k/mm3 (150-375); Red Blood Count 3.47 M/mm3 (4.2-5.4); Red Cell Distribution Width 13.2 % (11.5-14.5)
[2024-05-09] MEDS: UMECLIDINIUM BROMIDE 62.5 MCG ELLIPTA 1 PUFF INHALATION (08:01)
[2024-05-09] MEDS: FLUTICASONE/SALMETEROL 230-21 MCG INHALER 1 PUFF INHALATION ×2 (08:01→20:31)
[2024-05-09] MEDS: CHOLECALCIFEROL 1,000 UNITS TABLET 2000 UNITS PO (08:31)
[2024-05-09] MEDS: ALPRAZolam (*CRX) 0.25 MG TABLET PO ×2 (08:31→16:24)
[2024-05-09] MEDS: SERTRALINE HCL 50 MG TABLET PO (08:32)
[2024-05-09] MEDS: CYANOCOBALAMIN 1,000 MCG TABLET 1000 MCG PO (08:32)
[2024-05-09] MEDS: MONTELUKAST SODIUM 10 MG TABLET PO (08:32)
[2024-05-09] MEDS: predniSONE 20 MG TABLET 40 MG PO (08:32)
[2024-05-09] MEDS: ACETAMINOPHEN 325 MG TABLET 650 MG PO ×2 (08:32→16:24)
[2024-05-09] MEDS: PANTOPRAZOLE 40 MG TABLET PO ×2 (08:32→21:54)
[2024-05-09] MEDS: ASCORBIC ACID 500 MG TABLET 1000 MG PO (08:32)
[2024-05-09] MEDS: ONDANSETRON INJ 4 MG/2 ML VIAL IV PUSH (08:35)
--- NOTE | 2024-05-09 15:46 | PM.IMPN ---
Progress Note: A&P Assessment and Plan (1) Headache: Code(s): R51.9 - Headache, unspecified Status: Acute Assessment and Plan: Sinus vs drug side effect versus tension No history of migraine No other symptoms or signs of stroke or increased intracranial pressure No history of head trauma There symptoms or signs of temporal arteritis or TMJ 05/09/2024 Continue PRN APAP, switch from azithromycin to doxycycline, promethazine prn for nausea (2) Acute exacerbation of chronic obstructive pulmonary disease: Code(s): J44.1 - Chronic obstructive pulmonary disease with (acute) exacerbation Status: Acute Assessment and Plan: Improving and would be ready for discharge were it not for her severe headache 05/09/2024 (3) Acute on chronic respiratory failure with hypoxia and hypercapnia: Code(s): J96.21 - Acute and chronic respiratory failure with hypoxia; J96.22 - Acute and chronic respiratory failure with hypercapnia Status: Acute Assessment and Plan: Continue Trilogy Settings per pulmonology (4) Systolic CHF: Qualifiers: Heart failure chronicity: chronic Qualified Code(s): I50.22 - Chronic systolic (congestive) heart failure Code(s): I50.20 - Unspecified systolic (congestive) heart failure Status: Acute Assessment and Plan: Clinically stable (5) Protein-calorie malnutrition: Qualifiers: Protein-calorie malnutrition severity: mild Qualified Code(s): E44.1 - Mild protein-calorie malnutrition Code(s): E46 - Unspecified protein-calorie malnutrition Status: Acute Assessment and Plan: Chronic and related to her severe COPD Subjective Date/time seen: 05/09/24 15:46 Interval history: Complains of headache. Localized to bilaterally maxillary regions. Severe. No aggravating or alleviating factors noted. Associated nausea. No focal symptoms otherwise. Similar headache she gets at home. These however are relieved by 650 mg of Tylenol within 15-20 minutes. Not effective urine. Started 3 days ago. Constant. Other than nausea associated with headache with decreased appetite to denied other symptoms including chest pain or increased shortness of breath. No bowel or bladder changes. No abnormal bleeding weakness or numbness. No vision changes Review of Systems Review of Systems: All systems reviewed & are unremarkable except as noted in HPI and below Exam Narrative: HEENT: EOMI, PERRL, sclerae nonicteric, pharyngeal mucosa pink and intact NECK: No JVD, adenopathy, or thyromegaly CHEST: Clear to auscultation decreased breath sounds throughout and increased AP diameter. Normal effort. HEART: NL S1/S2, regular, no murmur ABDOMEN: BS+, soft, nontender, no mass, no bruits EXTREMITIES: No cyanosis, edema, or clubbing NEUROLOGIC: CN intact and symmetric to inspection. Strength intact all 4 extreme. [id number] intact. Temporal arteries with excellent pulses and nontender. TMJ nontender. MUSCULOSKELETAL: Tone and strength symmetric. PSYCH: Alert. Oriented to person, place, and time. Objective Data Vital Signs Vital Signs: Vital Signs - 24 hr 05/08/24 20:12 05/08/24 20:12 05/08/24 21:30 Temperature Pulse Rate 101 H 101 H 100 Respiratory Rate 12 Blood Pressure Pulse Oximetry 93 Oxygen Delivery Nasal Cannula Oxygen Flow Rate 3 05/08/24 21:30 05/08/24 23:49 05/08/24 22:00 Temperature 98.3 F Pulse Rate 111 H 109 H Respiratory Rate 15 Blood Pressure 134/75 Pulse Oximetry 93 93 Oxygen Delivery Nasal Cannula CPAP Oxygen Flow Rate 3 05/09/24 00:00 05/09/24 04:00 05/09/24 06:00 Temperature 98.1 F Pulse Rate 100 87 84 Respiratory Rate 16 Blood Pressure 117/54 L Pulse Oximetry 92 Oxygen Delivery Oxygen Flow Rate 05/09/24 08:04 05/09/24 08:00 05/09/24 14:00 Temperature 97.5 F L Pulse Rate 81 Respiratory Rate 18 Blood Pressure 108/55 L
--- NOTE | 2024-05-09 16:43 | PM.PNPUL ---
Progress Note: A&P Assessment and Plan (1) Acute exacerbation of chronic obstructive pulmonary disease: Code(s): J44.1 - Chronic obstructive pulmonary disease with (acute) exacerbation Status: Acute Assessment and Plan: Patient with a history of 40 pack year tobacco use, quit 2013, chronic hypercarbic and hypoxemic respiratory failure on 2 L nasal cannula at rest, 3 L with activity and 2 L bleed in at night with her home noninvasive ventilator. At home she is maintained on Symbicort 160-4.5 at 2 puffs twice a day and Spiriva HandiHaler. Currently the patient presents with 6 day worsening cough, phlegm production that changed from clear to yellow, fever, shortness of breath. Her COVID influenza and RSV RT PCR studies are negative. Plan: I will treat the patient for COPD exacerbation. Her clinical history is not consistent with PE and her perfusion scan is unchanged. There is no evidence of fluid overload. She started on Solu-Medrol on 05/06/2024 and is currently on prednisone 40 mg p.o. q.day. I will continue DuoNebs and increase her frequency from Q 6 to q.4 hours. Patient is on ceftriaxone and azithromycin both started 613 for possible pneumonia and will continue these antibiotics. Will continue her home montelukast. I will send a respiratory pathogen panel, urine for Legionella, urine for pneumococcal and mycoplasma IgM assay. Goal saturation 90-94%. Currently she is on 2 L nasal cannula with saturations 93%. later in the day the patient had a CT angiogram of the chest which was negative for PE, moderate apical predominant centrilobular emphysema no focal infiltrates suggestive of pneumonia. Later in the day obtained a download which demonstrated she is on AVAPS AE Breath rate is auto. Tidal volume 400, EPAP minimum 5, EPAP maximum 10, pressure support minimum 6, pressure support maximum 16, maximum pressure 22, rise time 6. she has excellent compliance a greater than 4 hours at 99%, with adequate pressures and low leak (see below). 05/08/24: Patient continues to slowly improve. States she has 50% back to her normal. Her cough is increased but she has no phlegm today. Complains that prednisone and nebulizer have made her jittery. She is afebrile. White blood cell count 6.3, creatinine 0.6. when I enter the room the patient was on 3 L nasal cannula I decreased her to 2 L nasal cannula and after 8 minutes her saturations were 95%. Patient wore her home noninvasive ventilator with AVAPS AE mode and 2 L bleed in and slept well. ABG prior to removal of 7.34/57/149. Patient feels as if she could tolerate more tidal volume. 05/09/24: she did not have the TV increased last night, and the pCO2 was a little higher with normal pH. She has higher serum bicarbonate, so she is compensated. I want to see RT increase her TV to 450 tonight, she will continue Advair 230/21 and Incruse 62.5 inhalers, continue prednisone 40 mg, TV increase 450 ml tonight, stop ceftriaxone in addition to azithromycin which Dr Woodward stopped already. (2) Acute respiratory failure with hypoxia and hypercapnia: Code(s): J96.01 - Acute respiratory failure with hypoxia; J96.02 - Acute respiratory failure with hypercapnia Status: Acute Assessment and Plan: Patient has COPD with chronic hypercarbic respiratory failure on home noninvasive ventilator with an AVAPS AE mode with an auto rate, tidal volume 400, EPAP minimum 5, EPAP maximum 10, IPAP minimum 6, IPAP maximum 16 with average respiratory rate 15, average EPAP 6, average IPAP 18. She uses 2 L bleed in at night. Plan: Patient says her home noninvasive ventilator is working well and she has brought this to the hospital and I will continue this tonight with 2 L bleed in. Will obtain download. 05/07/24: I obtained a download from her [employer] via [employer] from 01/23/2024 through 04/21/2024. Patient is on noninvasi
[2024-05-09] MEDS: oxyBUTYnin CHLORIDE 5 MG TABLET PO (21:54)
[2024-05-09] MEDS: MIRTAZAPINE 15 MG TABLET PO (21:54)
[2024-05-09 22:13] LABS: Glucose Point of Care 214 mg/dl (65-105)
[2024-05-10] VITALS (9 sets, daily range): BP systolic 115–129; BP diastolic 62–70; PULSE 69–98; RESP 18–20; TEMP 36.3–36.4; O2SAT 92–98
[2024-05-10] MEDS: ALENDRONATE SODIUM 70 MG TABLET PO (05:49)
[2024-05-10] MEDS: FLUTICASONE/SALMETEROL 230-21 MCG INHALER 1 PUFF INHALATION (07:13)
[2024-05-10] MEDS: UMECLIDINIUM BROMIDE 62.5 MCG ELLIPTA 1 PUFF INHALATION (07:14)
[2024-05-10] MEDS: PANTOPRAZOLE 40 MG TABLET PO (09:15)
[2024-05-10] MEDS: CHOLECALCIFEROL 1,000 UNITS TABLET 2000 UNITS PO (09:15)
[2024-05-10] MEDS: ASCORBIC ACID 500 MG TABLET 1000 MG PO (09:16)
[2024-05-10] MEDS: SERTRALINE HCL 50 MG TABLET PO (09:16)
[2024-05-10] MEDS: MONTELUKAST SODIUM 10 MG TABLET PO (09:16)
[2024-05-10] MEDS: CYANOCOBALAMIN 1,000 MCG TABLET 1000 MCG PO (09:16)
[2024-05-10] MEDS: ALPRAZolam (*CRX) 0.25 MG TABLET PO ×2 (09:16→16:12)
[2024-05-10] MEDS: ENOXAPARIN 40 MG/0.4 ML SYRINGE SUB-Q (09:16)
[2024-05-10] MEDS: ACETAMINOPHEN 325 MG TABLET 650 MG PO (09:17)
[2024-05-10] MEDS: predniSONE 20 MG TABLET 40 MG PO (09:17)
--- NOTE | 2024-05-10 16:44 | PM.DS ---
DS: Admitting Diagnosis Discharge Date 05/10/2024 Admitting Diagnosis copd exacerbation DS: Discharge Diagnosis Discharge Diagnosis (1) Headache: Code(s): R51.9 - Headache, unspecified Status: Acute Assessment and Plan: Sinus vs drug side effect versus tension No history of migraine No other symptoms or signs of stroke or increased intracranial pressure No history of head trauma There symptoms or signs of temporal arteritis or TMJ 05/09/2024 Continue PRN APAP (2) Acute exacerbation of chronic obstructive pulmonary disease: Code(s): J44.1 - Chronic obstructive pulmonary disease with (acute) exacerbation Status: Acute Assessment and Plan: Improving, near baseline, headache resolved Wants to go home (3) Acute on chronic respiratory failure with hypoxia and hypercapnia: Code(s): J96.21 - Acute and chronic respiratory failure with hypoxia; J96.22 - Acute and chronic respiratory failure with hypercapnia Status: Acute Assessment and Plan: Continue Trilogy Settings per pulmonology (TV increased to 450 ml) (4) Protein-calorie malnutrition: Qualifiers: Protein-calorie malnutrition severity: mild Qualified Code(s): E44.1 - Mild protein-calorie malnutrition Code(s): E46 - Unspecified protein-calorie malnutrition Status: Acute Assessment and Plan: Chronic and related to her severe COPD (5) Diastolic dysfunction: Code(s): I51.89 - Other ill-defined heart diseases Status: Acute Assessment and Plan: Clinically euvolemic DS: Summary Hospital Course Hospital Course: Admitted May 06 and discharged May 10, 2024. Admitted with increasing dyspnea. Venous pCO2 54 per chronic oxygen use at 2-3 liters/minute remained unchanged. Chest with decreased breath sounds. She was remained alert and oriented. She uses trilogy at home and brought to the hospital. With bronchodilators pulmonary toilet and broad-spectrum antibiotics she improved dramatically. Antibiotics were discontinued day prior to discharge. S chest x-ray showed no infiltrate she was feeling much with change of trilogy settings felt she was ready for discharge. She did quit smoking 10 years ago and about not to start again. Time Spent with Patient Time attestation: Total time spent providing and/or coordinating discharge services: Exam Narrative: HEENT: EOMI, PERRL, sclerae nonicteric, pharyngeal mucosa pink and intact NECK: No JVD, adenopathy, or thyromegaly CHEST: Clear to auscultation decreased breath sounds throughout and increased AP diameter. Normal effort. HEART: NL S1/S2, regular, no murmur ABDOMEN: BS+, soft, nontender, no mass, no bruits EXTREMITIES: No cyanosis, edema, or clubbing NEUROLOGIC: CN intact and symmetric to inspection. Strength intact all 4 extreme. Tzofmn-he-afbp intact. Temporal arteries with excellent pulses and nontender. TMJ nontender. MUSCULOSKELETAL: Tone and strength symmetric. PSYCH: Alert. Oriented to person, place, and time. DS: Data Data Completed and Pending Labs on day of discharge: Labs from last 24 hours 05/09/24 22:08 POC Capillary Glucose 214 H Preliminary micro results at discharge 05/06/24 14:11 Blood Culture - Preliminary Blood 05/06/24 14:11 Blood Culture - Preliminary Blood Discharge Plan Discharge Consulting providers: Eusebio Plata Discharging Clinician: Yo Woodward Patient Disposition: Home, Self-Care Activity: no straining Diet: heart healthy Discharge Instructions: Per Care Coordination Patient to call Department of Aging to arrange evaluation to see if you qualify for in home services [phone] Patient Instructions: Antibiotic Form Stand Alone Forms: General Discharge Information Follow-up/Referrals: Marii Sanz MD [Physician] - Call for Appointment Linden Ayala DO [Primary Care Provider] - Call for Appointment Disc
[2024-05-12 01:23] LABS: Legionella pneumophila Ag Ur NOT DETECTED
[2024-05-14 21:52] LABS: Mycoplasma IgM Antibody Titer 213 U/mL
== END 2024-05-10 18:30 | disposition home or self-care (01) | DRG 190 ==
LOC: ANHED 21:09 → ANH3MEDSUR 21:43
PROVIDERS: Internal Medicine; Internal Medicine Pulmonary Disease; Admitting Provider Internal Medicine; Emergency Provider Student in an Organized Health Care Education/Training Program; PCP Internal Medicine; Visit Provider Internal Medicine
DX: J43.9 Emphysema, unspecified (principal); J96.21 Acute and chronic respiratory failure with hypoxia; J96.22 Acute and chronic respiratory failure with hypercapnia; E44.1 Mild protein-calorie malnutrition; I50.22 Chronic systolic (congestive) heart failure; J44.1 Chronic obstructive pulmonary disease with (acute) exacerbation; J43.2 Centrilobular emphysema; E53.8 Deficiency of other specified B group vitamins; E55.9 Vitamin D deficiency, unspecified; I27.20 Pulmonary hypertension, unspecified; K21.9 Gastro-esophageal reflux disease without esophagitis; R19.5 Other fecal abnormalities; Z20.822 Contact with and (suspected) exposure to COVID-19; Z87.891 Personal history of nicotine dependence; Z99.81 Dependence on supplemental oxygen; Z90.49 Acquired absence of other specified parts of digestive tract
CPT/HCPCS: 36415; 36600; 71045; 71275; 78580; 80053; 81001; 82803; 82805; 82948; 83605; 83690; 83735; 83880; 84484; 85025; 85380; 85610; 85730; 86140; 86738; 87040; 87449; 87637; 87899; 93005; 94002; 94640; 96361; 96372; 96374; 96375; 97161; 99285; A9270; A9540; J0456; J0696; J1200; J1650; J2405; J2919; J7120; J7512; Q9967

== ENCOUNTER 2025-02-02 11:01 | Outpatient (CLI) | payer MEDICARE, MEDICAID, SELFPAY ==
--- OUTSIDE RECORDS SUMMARY | 2025-02-02 12:46 | XMS_ITS | CONTINUITY OF CARE DOCUMENT ---
Author Name amado milanakeiko Address Unknown Organization [facility] Address [address] [address] [facility] [address] [facility] [address] [place] [address] Phone [phone] Care Team Providers Care Administrative Support Associate Name Role Phone Samson HENRY, Ryder Unavailable JAVON HENRY, PB Souza Unavailable MITCH HENRY, SEAMUS Liz Unavailable [phone] INSURANCE PROVIDERS Payer name Policy type / Coverage type [place] red alliance party ID [employer] Commercial insuranc [employer] [id number]
--- OUTSIDE RECORDS SUMMARY | 2025-02-02 12:46 | XMS_ITS | Encounter Summary ---
Author Organization 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 us Historical Provider Final Res ult documented in this encounter Visit Diagnoses Not on filedocumented in this encounter Care Teams Director Of Community Services Relationship Specialty Start Date End Date Linden Ayala DO PCP - General Internal Medicine 11/05/18 documented as of this encounter
--- OUTSIDE RECORDS SUMMARY | 2025-02-02 12:46 | XMS_ITS | Clinical Summary ---
Author Organization [facility] [address] Address [address] [place] [address] Care Team Providers Care Schedule Planning Manager Name Role Phone Linden Ayala DO Primary Care Provider [phone]- [phone] Allergies Active Allergy Reactions Criticality Noted Date Comments Aspirin Stomach upset Low 11/14/2018 Iodinated Contrast Media Rash Medium 11/14/2018 Social History Tobacco Use Types Packs/Day Years Used Date Smoking Tobacco: Never Assessed Personal Safety Answer Date Recorded Getting School Help Needed Not on file 01/20 Comments Unknown Sex and Gender Information Value Date Recorded Sex Assigned at Not on file Legal Sex Female 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 Gender Identity Not on file Sexual Orientation Not on file Last Filed Vital Signs Vital Sign Reading Time Taken Comments Blood Pressure 95/65 08/12/2018 2:45 PM CDT Pulse 98 08/12/2018 2:45 PM CDT Temperature - - Respiratory Rate - - Oxygen Saturation 91% 08/12/2018 2:45 PM CDT Inhaled Oxygen Concentration - - Weight 39.5 kg (87 lb) 11/14/2018 1:57 PM VOICE SYSTEMS ENGINEER Height 154.9 cm (5' 1 ) 11/14/2018 1:57 PM VOICE SYSTEMS ENGINEER Body Mass Index 16.44 11/14/2018 1:57 PM VOICE SYSTEMS ENGINEER Plan of Treatment Health Maintenance Due Date Last Done Comments Breast Cancer Screening-Mammogram 1955 Colon Cancer Screening-Colonoscopy 1955 Depression Screening 1955 Fall Risk Assessment 1955 Hepatitis C Screening 1955 Osteoporosis Screening-Bone Density Scan 1955 DTaP/Tdap/Td Vaccine (1 - Tdap) 1966 Hepatitis B Screening 1973 Zoster Vaccine (1 of 2) 2005 Pneumococcal vaccine 65+ (2 of 2 - PCV) 11/25/2013 11/25/2012 Well Visit 65+ 02/14/2020 Influenza Vaccine (#1) 2024 7, 09/04/2016, 08/25/2016, Additional history exists Insurance IDPA [facility] MDCR [facility] Address: [address] [address] [place] [address] IDPA [employer] Care Teams Schedule Planning Manager Relationship Specialty Start Date End Date Linden Ayala DO PCP - General Internal Medicine 11/05/18
--- OUTSIDE RECORDS SUMMARY | 2025-02-02 12:46 | XMS_ITS | Clinical Summary ---
Author Organization [facility] Address [address] [facility] [place] [address] Phone Care Team Providers Care Pharmacovigilance Safety Expert Name Role Phone Gail Kelley MD Primary Care Provider + Sherly Kearns MILK RUNNER, CERTIFIED OPHTHALMIC ASSISTANT Unavailable Allergies Active Allergy Reactions Criticality Noted Date Comments Iodinated Contrast Media Rash 09/17/2016 Medications PROAIR HFA 108 (90 BASE) MCG/ACT Aerosol Solution 6 Active alendronate (FOSAMAX) 70 MG Tablet 6 Active SYMBICORT 160-4.5 MCG/ACT Aerosol 6 Active SPIRIVA HANDIHALER 18 MCG Capsule 6 Active Diphenhydramine -APAP, sleep, (TYLENOL PM EXTRA STRENGTH PO) Take by mouth. Activ e omeprazole (PRILOSEC) 40 MG CAPSULE DELAYED RELEASE Take 1 Cap by mouth daily. 90 Cap 3 6 Active sucralfate (CARAFATE) 1 GM/10ML Suspension Take 10 mL by mouth every 6 hours. 420 mL 3 6 Active polyethylene glycol (MIRALAX) Powder Use entire 255g bottle with 64oz of clear liquid as directed for colonoscopy prep. 255 g 0 6 Active Active Problems No known active problems Immunizations Immunization Administration Dates Next Due Covid-19, Mrna, Lnp-s, PF, 1 00 mcg/0.5 mL Dose (Moderna) 01/04/2021 Influenza Vaccine greater than 3 yrs 08/25/2016 Family History Medical History Relation Name Comments Heart Disease Father Renal Failure Father Relation Name Status Comments Father Social History Tobacco Use Types Packs/Day Years Used Date Smoking Tobacco: Former Cigarettes 1.5 35 Comments:quit in 50s Alcohol Use Standard Drinks/Week Comments No 0 (1 standard drink = 0.6 oz pur e alcohol) Comments No Sex and Gender Information Value Date Recorded Sex Assigned at Not on file Legal Sex Female 1:43 PM CDT Gender Identity Not on file Sexual Orientation Not on file Occupation Industry Job Start Date Job End Date retired Not on file Not on file Not on file Last Filed Vital Signs Vital Sign Reading Time Taken Comments Blood Pressure 110/70 09/17/2016 10:33 AM CDT Pulse 68 09/17/2016 10:33 AM CDT Temperature 36.5 C (97.7 F) 09/17/2016 10:33 AM CDT Respiratory Rate 16 09/17/2016 10:33 AM CDT Oxygen Saturation 91% 09/17/2016 10:33 AM CDT Inhaled Oxygen Concentration - - Weight 44.5 kg (98 lb) 09/17/2016 10:33 AM CDT Height 154.9 cm (5' 1 ) 09/17/2016 10:33 AM CDT Body Mass Index 18.52 09/17/2016 10:33 AM CDT Plan of Treatment Health Maintenance Due Date Last Done Comments DEXA Bone Density 1955 Hepatitis C Virus (HCV) Screening 1955 Colonoscopy 02/14/2000 Colorectal Cancer Screening 02/14/2000 Cologuard 2005 Immunochemical Fecal Occult Blood 2005 Mammogram 2005 Pneumococcal Immunization (5 0+ years) (1 of 1 - PCV) 2005 09/25/2012 Zoster Immunization (1 of 2) 2005 Influenza Immunization (#1) 07/26/202409/25, 08/25/2016, 09/25/2013 SARS-COV-2 Immunization ( - 2023- season) 2024 09/17/2021, 01/04/2021 Respiratory Syncytial Virus (RSV) Immunization (Adult) (1 - 1-dose 75+ series) 2030 Pneumococcal Immunization Combined Discontinued 09/25/2012 DTaP/Tdap/Td Immunization Discontinued 12/08/2019 TdaP Immunization Completed 12/08/2019 Hepatitis B Immunization Aged Out No longer eligible based on patient's age to complete this topic Meningococcal Immunization (ACWY) Aged Out No longer eligible based on patient's age to complete this topic Rotavirus Immunization Aged Out No lo nger eligible based on patient's age to complete this topic Insurance MEDICARE [place]ICAID [place] Care Teams Pharmacovigilance Safety Expert Relationship Specialty Start Date End Date Gail Kelley MD [address] [place] [address] PCP - General Family Medicine 09/14/16 Sherly Kearns, MILK RUNNER, CERTIFIED OPHTHALMIC ASSISTANT [address] [place] [address] Nurse Practitioner Advanced Practice Nurse 09/17/16
--- OUTSIDE RECORDS SUMMARY | 2025-02-02 12:46 | XMS_ITS | Referral Summary ---
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 Gender Identity Not on file Sexual Orientation Not on file Last Filed Vital Signs Vital Sign Reading Time Taken Comments Blood Pressure 95/65 08/12/2018 2:45 PM CDT Pulse 98 08/12/2018 2:45 PM CDT Temperature - - Respiratory Rate - - Oxygen Saturation 91% 08/12/2018 2:45 PM CDT Inhaled Oxygen Concentration - - Weight 39.5 kg (87 lb) 11/14/2018 1:57 PM HOUSEPERSON Height 154.9 cm (5' 1 ) 11/14/2018 1:57 PM HOUSEPERSON Body Mass Index 16.44 11/14/2018 1:57 PM HOUSEPERSON Plan of Treatment Not on file Insurance IDPA [facility] MDCR HMO REF [facility] MEDIC[facility] Address: [address] [address] [place] [address] IDPA [employer] [facility] MEDIC[facility] Address: [address] [address] [place] [address] Care Teams Data Services Developer Relationship Specialty Start Date End Date Linden Ayala DO PCP - General Internal Medicine 11/05/18
[2025-02-02 13:29] LABS: Basophils Absolute Auto 0.1 K/mm3 (0.0-0.1); Basophils Percent Auto 0.6 % (0.2-1.2); Eosinophils Absolute Auto 0.2 K/mm3 (0-0.3); Eosinophils Percent Auto 2.8 % (0-4.4); Hematocrit 37.4 % (37.0-47.0); Hemoglobin 11.9 g/dL (12.0-15.0); Immature Granulocyte Absolute 0.02 K/mm3 (0.00-0.031); Immature Granulocyte Percent A 0.3 % (0-0.5); Lymphocytes Percent Auto 22.7 % (18.3-44.2); Mean Corpuscular HGB Conc 31.8 g/dl (32-36); Mean Corpuscular Hemoglobin 30.1 pg (26-34); Mean Corpuscular Volume 94.7 fl (80-100); Mean Platelet Volume 9.3 fl (7.4-10.4); Monocytes Absolute Auto 0.8 K/mm3 (0.1-0.6); Monocytes Percent Auto 10.1 % (2.6-8.5); Neutrophils Percent Auto 63.5 % (45.5-73.1); Platelet Count Result 270 k/mm3 (150-375); Red Blood Count 3.95 M/mm3 (4.2-5.4); Red Cell Distribution Width 12.9 % (11.5-14.5); White Blood Count 7.9 K/mm3 (4.5-10.0)
[2025-02-02 13:58] LABS: Alanine Aminotransferase 14 U/L (6-35); Albumin Level 4.3 g/dL (3.5-5.1); Alkaline Phosphatase 59 U/L (38-126); Anion Gap 10 mmol/L (4-12); Aspartate Amino Transferase 38 U/L (14-36); Bilirubin,Total 0.5 mg/dL (0.2-1.3); Blood Urea Nitrogen 21 mg/dL (7-17); Calcium 9.4 mg/dL (8.4-10.2); Carbon Dioxide 34 mmol/L (22-30); Chloride 98 mmol/L (98-107); Estimated Glomerular Filt Rate > 60; Glucose 95 mg/dL (65-110); Potassium 3.7 mmol/L (3.4-5.0); Sodium 142 mmol/L (137-145)
[2025-02-02 14:32] LABS: Free T3 3.47 pg/mL (2.45-5.93); Free T4 Free Thyroxine 1.42 ng/dL (0.78-2.19)
== END 2025-02-02 11:02 | disposition home or self-care (01) ==
PROVIDERS: PCP Internal Medicine; Visit Provider Internal Medicine
DX: E05.90 Thyrotoxicosis, unspecified without thyrotoxic crisis or storm (principal); M81.0 Age-related osteoporosis without current pathological fracture; E44.1 Mild protein-calorie malnutrition; D64.9 Anemia, unspecified; J96.11 Chronic respiratory failure with hypoxia; Z99.81 Dependence on supplemental oxygen; R53.83 Other fatigue
CPT/HCPCS: 36415; 80053; 82728; 84439; 84443; 84481; 85025

== ENCOUNTER 2025-02-17 12:42 | Outpatient (CLI) | payer MEDICARE, MEDICAID, SELFPAY ==
[2025-02-17 13:25] LABS: Alveolar/Arterial O2 Gradient 54.7 mmHg; Base Excess ABG 6.5 mEq/l (+/-2.0); Fractional Inspired Oxygen 28 %; HCO3 ABG 33.3 mEq/l (22.0-26.0); Oxygen Content ABG 16.7 %vol (16.0-22.0); Oxygen Saturation ABG 94.6 % (95.0-100.0); Oxyhemoglobin 94.5 % THb (90.0-100.0); PCO2 ABG 58.4 mmHg (35.0-45.0); PO2 FiO2 Ratio Arterial Blood 2.71 %; Total Hemoglobin 12.5 g/dL (12.0-18.0); pH ABG 7.374 (7.350-7.450)
[2025-02-17 13:27] LABS: Device NASAL CANNULA; Modified Allen's Test Pass; Site Drawn RIGHT BRACHIAL
--- OUTSIDE RECORDS SUMMARY | 2025-02-17 13:41 | XMS_ITS | Referral Summary ---
Author Organization [facility] [address] Address [address] [place] [address] Care Team Providers Care Aerial Sprayer Name Role Phone Linden Ayala DO Primary Care Provider [phone]- [phone] Allergies Active Allergy Reactions Criticality Noted Date [...] on file Legal Sex Female 8:20 AM HEALTH SAFETY SPECIALIST Gender Identity Not on file Sexual Orientation Not on file Last Filed Vital Signs Vital Sign Reading Time Taken Comments Blood Pressure 95/65 08/12/2018 2:45 PM CDT Pulse 98 08/12/2018 2:45 PM CDT Temperature - - Respiratory Rate - - Oxygen Saturation 91% 08/12/2018 2:45 PM CDT Inhaled Oxygen Concentration - - Weight 39.5 kg (87 lb) 11/14/2018 1:57 PM HEALTH SAFETY SPECIALIST Height 154.9 cm (5' 1 ) 11/14/2018 1:57 PM HEALTH SAFETY SPECIALIST Body Mass Index 16.44 11/14/2018 1:57 PM HEALTH SAFETY SPECIALIST Plan of Treatment Not on file Insurance IDPA [facility] MDCR HMO REF IDPA [facility] MEDICARE ADVANTAGE Care Teams Aerial Sprayer Relationship Specialty Start Date End Date Linden Ayala DO PCP - General Internal Medicine 11/05/18
--- OUTSIDE RECORDS SUMMARY | 2025-02-17 13:41 | XMS_ITS | Encounter Summary ---
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
--- OUTSIDE RECORDS SUMMARY | 2025-02-17 13:41 | XMS_ITS | Clinical Summary ---
Author Organization [facility] [address] Address [address] [place] [address] Care Team Providers Care Manager Strategic Development Name Role Phone Linden Ayala DO Primary Care Provider +1- [phone] Allergies Active Allergy Reactions Criticality Noted Date [...] on file Legal Sex Female 8:20 AM LOSS PREVENTION AGENT Gender Identity Not on file Sexual Orientation Not on file Last Filed Vital Signs Vital Sign Reading Time Taken Comments Blood Pressure 95/65 08/12/2018 2:45 PM CDT Pulse 98 08/12/2018 2:45 PM CDT Temperature - - Respiratory Rate - - Oxygen Saturation 91% 08/12/2018 2:45 PM CDT Inhaled Oxygen Concentration - - Weight 39.5 kg (87 lb) 11/14/2018 1:57 PM LOSS PREVENTION AGENT Height 154.9 cm (5' 1 ) 11/14/2018 1:57 PM LOSS PREVENTION AGENT Body Mass Index 16.44 11/14/2018 1:57 PM LOSS PREVENTION AGENT Plan of Treatment Health Maintenance Due Date [...] 09/04/2016, 08/25/2016, Additional history exists Insurance IDPA [facility] MDCR HMO [facility]F [facility] Address: [address] [address] [place] [address] IDPA [facility] MEDICARE [facility]AGE [facility] Address: [address] [address] [place] [address] Care Teams Manager Strategic Development Relationship Specialty Start Date End Date Linden Ayala DO PCP - General Internal Medicine 11/05/18
--- OUTSIDE RECORDS SUMMARY | 2025-02-17 13:41 | XMS_ITS | CONTINUITY OF CARE DOCUMENT ---
Author Name amado milanakeiko Address Unknown Organization [facility] Address [address] [facility] [address] [place] [address] Phone [phone] Care Team Providers Care Flatbed Press Operator Name Role Phone Samson HENRY, Ryder Unavailable JAVON HENRY, PB Souza Unavailable [phone] MITCH HENRY, SEAMUS Liz Unavailable [phone] INSURANCE PROVIDERS Payer name Policy type / Coverage type [place] red republican ID [employer] Commercial insuranc e [employer] [id number]
--- OUTSIDE RECORDS SUMMARY | 2025-02-17 13:41 | XMS_ITS | Data Portability ---
Author Organization [place] [facility] [employer], Main Office Address [address] [place] [address] Assessment No assessment recorded. Plan of Treatment Reminders Order Date Submit Date Provider Last Modified By Organization Details Last Modified Time Details Appointments None record ed. Lab None record ed. Referral None record ed. Procedures None record ed. Surgeries None record ed. Imaging None record ed. Medication Orders None record ed. Patient TargetsNo targets recorded. Patient InstructionsNo instructions recorded. Reason for Referral None Reported. Results Created Date Observation Date Name Description Value Unit Range Abnormal Flag Note LastModifiedBy Organization Detail LastModifiedTime 10/08/20 22 10/13/2022 TESTO STERO NE, FREE+ TOTAL LC/MS testosterone , total, lc/MS <2.5 NG/dL 7.0-40 .0 low Not Available [facility] (Lab) [address] [place], [address], 10/13/2022 16:09:48 10/08/20 22 10/13/2022 TESTO STERO NE, FREE+ TOTAL LC/MS testosterone , free <.04 NG/dL 0.10-0 .85 low Not Available [facility] (Lab) [address] [place], [address], 10/13/2022 16:09:48 10/08/20 22 10/13/2022 TESTO STERO NE, FREE+ TOTAL LC/MS % free testosterone 1.44 % 0.50-2 .80 Perfo rmed at: BN - [facility] [place] [address] [facility] , [place] [address] Lab Direc tor: Cayla fall MD, Phone : [phone] Not Available [facility] (Lab) [address] [place], [address], 10/13/2022 16:09:48 10/08/20 22 10/10/2022 IODIN E, SERUM /PLAS MA iodine, serum/plasma 40.2 ug/L 40.0-9 2.0 Limit of quant itati on = 20 Perfo rmed at: BN - [facility] [place] [address] [facility] , [place] [address] Lab Direc tor: Cayla fall MD, Phone : [phone] Not Available [facility] (Lab) [address] [place], [address], 10/10/2022 23:07:33 10/08/20 22 10/09/2022 DHEA- SULFA TE DHEA-sulfate 0.5 ug/dL 20.4-1 86.6 low Perfo rmed at: - [facility] [address] [place] [address] Lab Direc tor: Meet pittman PhD, Phone : [phone] Not Available [facility] (Lab) [address] [place], [address], 10/09/2022 16:12:20 10/08/20 22 10/08/2022 VITAM IN B12 (OLAMIDE MONICA ) vb12 >1000 pg/mL 239-93 1 high Not Available [facility] (Lab) [address] [place], [address], 10/08/2022 15:42:45 10/08/20 22 10/08/2022 VITAM IN D 25-HY DROXY vd25oh 27.2 NG/mL 30-100 low Vitam in D Statu s: Defic ient: <20 ng/mL Insuf ficie nt: 20-29 ng/mL Suffi cient : 30-10 0 ng/mL Not Available [facility] (Lab) [address] [place], [address], 10/08/2022 14:48:52 10/08/20 22 10/12/2022 TSH thyroid-stim ulating hormone 1.110 uIU/m L 0.465- 4.680 Not Available [facility] (Lab) [address] [place], [address], 10/12/2022 17:38:41 10/08/20 22 10/12/2022 T3 FREE free T3 2.9 pg/mL 2.77-5 .27 Not Available [facility] (Lab) [address] [place], [address], 10/12/2022 17:32:45 10/08/2010/12/2022 T4 FREE free T4 1.23 NG/dL 0.78-2 .19 Not Available [facility] (Lab) [address] [place], [address], 10/12/2022 17:32:42 10/08/2010/10/2022 THYRO ID STIM IMMUN OGLOB ULIN thyroid stim immunoglobul in <0.10 IU/L 0.00-0 .55 Perfo rmed at: BN - [facility] [place] [address] [place] [address] Lab Direc tor: Cayla fall MD, Phone : [phone] Not Available [facility] (Lab) [address] [place], [address], 10/10/2022 16:12:07 10/08/20 22 10/09/2022 THYRO ID PEROX IDASE (TPO) AB thyroid peroxidase (tpo) Ab <9 IU/mL 0-34 Perfo rmed at: CB - [facility] [address] [place] [address] Lab Direc tor: Meet pittman PhD, Phone : [phone] Not Available [facility] (Lab) [address] [place], [address], 10/09/2022 08:14:10 10/08/20 22 10/08/2022 FOLAT E, SERUM /PLAS MA folate 9.10 NG/mL 2.76-2 0.0 Not Available [facility] (Lab) [address] [place], [address], 10/08/2022 15:42:49 10/08/20 22 10/08/2022 PHOSP HORUS phosphorus 4.9 mg/dL 2.5-4. 5 high Not Available [facility] (Lab) [address] [place], [address], 10/08/2022 15:07:33 10/08/2010/08/2022 PARAT HY.HO RM(PT H)INT ACT-W /O CA intact parathyroid hormone 70.2 pg/mL 24.0-7 8.0 Not Available [facility] (Lab) [address] [place], [address], 10/08/2022 14:46:05 10/08/20 22 10/08/2022 IRON/ TIBC PANEL total iron binding capacity 326 mcg/d L 265-47 5 Not Available [facility] (Lab) [address] [place], [address], 10/08/2022 14:20:19 10/08/20 22 10/08/2022 IRON/ TIBC PANEL % transferrin saturation 17 % 20-55 low Not Available [facility] (Lab) [address] [place], [address], 10/08/2022 14:20:19 10/08/20 22 10/08/2022 IRON/ TIBC PANEL unsaturated iron bind capacity 269 mcg/d L 126-38 2 Not Available [facility] (Lab) [address] [place], [address], 10/08/2022 14:20:19 10/08/20 22 10/08/2022 IRON/ TIBC PANEL iron 57 mcg/d L 42-175 Not Available [facility] (Lab) [address] [facility] [place], [address], 10/08/2022 14:20:19 10/08/20 22 10/08/2022 COMPR EHENS NEMO METAB OLIC PANEL sodium 136 mmol/ L 137-14 5 low Not Available [facility] (Lab) [address] [place], [address], 10/08/2022 14:20:08 10/08/20 22 10/08/2022 COMPR EHENS NEMO METAB OLIC PANEL potassium 4.3 mmol/ L 3.5-5. 1 Not Available [facility] (Lab) [address] [place], [address], 10/08/2022 14:20:08 10/08/20 22 10/08/2022 COMPR EHENS NEMO METAB OLIC PANEL chloride 97 mmol/ L 98-107 low Not Available [facility] (Lab) [address] [place], [address], 10/08/2022 14:20:08 10/08/20 22 10/08/2022 COMPR EHENS NEMO METAB OLIC PANEL carbon dioxide 33 mmol/ L 22-30 high Not Available [facility] (Lab) [address] [place], [address], 10/08/2022 14:20:08 10/08/20 22 10/08/2022 COMPR EHENS NEMO METAB OLIC PANEL anion gap 10.3 mmol/ L 14-22 low Not Available [facility] (Lab) [address] [place], [address], 10/08/2022 14:20:08 10/08/20 22 10/08/2022 COMPR EHENS NEOM METAB OLIC PANEL glucose 85 mg/dL 70-99 Not Available [facility] (Lab) [address] [place], [address], 10/08/2022 14:20:08 10/08/20 22 10/08/2022 COMPR EHENS NEMO METAB OLIC PANEL BUN 19 mg/dL 8-19 Not Available [facility] (Lab) [address] [place], [address], 10/08/2022 14:20:08 10/08/20 22 10/08/2022 COMPR EHENS NEMO METAB OLIC PANEL creatinine 0.78 mg/dL 0.66-1 .25 Not Available [facility] (Lab) [address] [place], [address], 10/08/2022 14:20:08 10/08/20 22 10/08/2022 COMPR EHENS NEMO METAB OLIC PANEL GFR >60 Refer ence Range : Sherwood ge GFR Healt hy Adult : >60 mL/mi n/1.7 3 m2 Chron ic Kidne y Disea se: 15-60 mL/mi n/1.7 3 m2 Kidne y Failu re: <15/m L/min /1.73 m2 www.n iddk. nih.g ov The MDRD study equat ion has not been valid ated in child hitesh <18 years of age; pregn ant women ; the elder ly >85 years of age; or in some racia l or ethni c subgr oups, such as Marie nics. Outsi de the valid ated brittney eters , estim ated GFR is less accur ate, requi ring clini phylicia judgm ent on a case- by-ca se basis . Clini phylicia inter preta tion for other races and ages must be made by the clini javid. The MDRD study equat ion has not been valid ated for the evalu ation of serum creat inine relat ed to nutri farheen l statu s or medic ation usage . For perso ns <18 years of age, a pedia tric GFR calcu lator is avail able on the F websi te: https ://aishwarya w.sandra choiy.o rg/pr ofess ional s/kdo qi/gf r_cal culat or Not Available [facility] (Lab) [address] [place], [address], 10/08/2022 14:20:08 10/08/20 22 10/08/2022 COMPR EHENS NEMO METAB OLIC PANEL alkaline phosphatase 49 U/L 38-126 Not Available [facility] (Lab) [address] [place], [address], 10/08/2022 14:20:08 10/08/20 22 10/08/2022 COMPR EHENS NEMO METAB OLIC PANEL alanine aminotransfe rase 12 U/L 0-35 Not Available [facility] (Lab) [address] [place], [address], 10/08/2022 14:20:08 10/08/20 22 10/08/2022 COMPR EHENS NEMO METAB OLIC PANEL aspartate aminotransfe rase 21 U/L 15-37 Not Available [facility] (Lab) [address] [place], [address], 10/08/2022 14:20:08 10/08/20 22 10/08/2022 COMPR EHENS NEMO METAB OLIC PANEL bilirubin, total 0.40 mg/dL 0.20-1 .30 Not Available [facility] (Lab) [address] [place], [address], 10/08/2022 14:20:08 10/08/20 22 10/08/2022 COMPR EHENS NEMO METAB OLIC PANEL calcium 9.0 mg/dL 8.4-10 .2 Not Available [facility] (Lab) [address] [place], [address], 10/08/2022 14:20:08 10/08/20 22 10/08/2022 COMPR EHENS NEMO METAB OLIC PANEL total protein 6.4 g/dL 6.3-8. 2 Not Available [facility] (Lab) [address] [place], [address], 10/08/2022 14:20:08 10/08/20 22 10/08/2022 COMPR EHENS NEMO METAB OLIC PANEL albumin 4.1 g/dL 3.0-4. 4 Not Available [facility] (Lab) [address] [place], [address], 10/08/2022 14:20:08 10/08/20 22 10/08/2022 COMPR EHENS NEMO METAB OLIC PANEL globulin 2.3 g/dL 2.6-4. 2 low Not Available [facility] (Lab) [address] [place], [address], 10/08/2022 14:20:08 10/08/20 22 10/08/2022 COMPR EHENS NEMO METAB OLIC PANEL A/G ratio 1.8 ratio 1.0-2. 0 Not Available [facility] (Lab) [address] [place], [address], 10/08/2022 14:20:08 10/11/20 22 10/13/2022 IODIN E, 24-HO UR URINE iodine, 24-hour urine 105.8 ug/24 _HR 100.0- 460.0 Perfo rmed at: BN - [facility] [address] [facility] [place] [address] Lab Direc tor: Cayla fall MD, Phone : [phone] Not Available [facility] (Lab) [address] [place], [address], 10/13/2022 12:09:16 10/11/2010/13/2022 IODIN E, 24-HO UR URINE iodine, urine 117.5 ug/L 28.0-5 44.0 This test was devel oped and its perfo rmanc e sana cteri stics deter mined by [facility]. It has not been clear ed or appro ko by the Food and Drug Admin istra tion. Limit of quant itati on = 20 Not Available [facility] (Lab) [address] [place], [address], 10/13/2022 12:09:16 01/29/20 23 01/28/2023 PARAT HYROI D HORM (PTH) INT.W /CA intact parathyroid hormone 59.5 pg/mL 24-78 Pleas e note new refer ence range effec tive 12/21 . Not Available [facility] (Lab) [address] [place], [address], 01/28/2023 14:49:21 01/29/20 23 01/28/2023 PARAT HYROI D HORM (PTH) INT.W /CA calcium 8.9 mg/dL 8.4-10 .2 Not Available [facility] (Lab) [address] [place], [address], 01/28/2023 14:49:21 01/29/20 23 01/28/2023 PHOSP HORUS phosphorus 4.2 mg/dL 2.5-4. 5 Not Available [facility] (Lab) [address] [place], [address], 01/28/2023 14:49:31 01/29/2001/28/2023 VITAM IN D 25-HY DROXY vd25oh 40.1 NG/mL 30-100 Vitam in D Statu s: Defic ient: <20 ng/mL Insuf ficie nt: 20-29 ng/mL Suffi cient : 30-10 0 ng/mL Not Available [facility] (Lab) [address] [place], [address], 01/28/2023 14:57:42 01/29/2001/28/2023 T3 FREE free T3 4.0 pg/mL 2.77-5 .27 Not Available [facility] (Lab) [address] [place], [address], 01/28/2023 14:59:09 01/29/20 23 01/28/2023 T4 FREE free T4 1.35 NG/dL 0.78-2 .19 Not Available [facility] (Lab) [address] [place], [address], 01/28/2023 14:59:15 01/29/2001/28/2023 TSH thyroid-stim ulating hormone 0.483 uIU/m L 0.465- 4.680 Not Available [facility] (Lab) [address] [place], [address], 01/28/2023 15:11:16 01/29/20 23 01/28/2023 VITAM IN B12 (OLAMIDE MONICA ) vb12 >1000 pg/mL 239-93 1 high Not Available [facility] (Lab) [address] [place], [address], 01/28/2023 15:48:04 01/29/20 23 01/28/2023 FOLAT E, SERUM /PLAS MA folate 16.5 NG/mL 2.76-2 0.0 Not Available [facility] (Lab) [address] [place], [address], 01/28/2023 15:48:09 01/29/20 23 01/29/2023 THYRO ID PEROX IDASE (TPO) AB thyroid peroxidase (tpo) Ab <9 IU/mL 0-34 Perfo rmed at: [facility] [place] [address] Lab Direc tor: Meet pittman PhD, Phone : [phone] Not Available [facility] (Lab) [address] [place], [address], 01/29/2023 10:13:10 02/06/20 23 02/05/2023 CORTI REMINGTON, TOTAL , A.M. raphael AM 0.9 ug/dL 4.5-22 .7 low Not Available [facility] (Lab) [address] [place], [address], 02/05/2023 12:13:51 02/06/20 23 2023 DEXAM ETHAS ONE dexamethason e 464 NG/dL This test was devel oped and its perfo rmanc e sana cteri stics deter mined by [facility]. It has not been clear ed or appro ko by the Food and Drug Admin istra tion. Refer ence Range : Adult s basel ine: <30 8:00 AM follo wing 1 mg dexam ethas one previ ous eveni n - 295 8:00 AM follo wing 8 mg dexam ethas one (4 x 2 mg doses ) previ ous day: 1600 - 2850 Perfo rmed at: ES - [employer] [address] [place] [address] Lab Direc tor: Lukas edwards MD, Phone : [phone] Not Available [facility] (Lab) [address] [place] [address], [address], 2023 04:08:17 08/05/20 23 08/05/2023 CORTI REMINGTON, TOTAL , A.M. raphael AM 0.9 ug/dL 4.5-22 .7 low Not Available [facility] (Lab) [address] [place] [address], [address], 08/05/2023 12:25:06 08/05/20 23 08/09/2023 DEXAM ETHAS ONE dexamethason e 347 NG/dL This test was devel oped and its perfo rmanc e sana cteri stics deter mined by [facility]. It has not been clear ed or appro ko by the Food and Drug Admin istra tion. Refer ence Range : Adult s basel ine: <30 8:00 AM follo wing 1 mg dexam ethas one previ ous eveni n - 295 8:00 AM follo wing 8 mg dexam ethas one (4 x 2 mg doses ) previ ous day: 1600 - 2850 Perfo rmed at: ES - [employer] [address] [facility], [place] [address] Lab Direc tor: Lukas edwards MD, Phone : [phone] Not Available [facility] (Lab) [address], [place], [address], 08/09/2023 22:07:20 10/10/20 22 10/09/2022 US, head + neck, soft tissu e [facility] [address], [place] [address] Grey marley Name: AMARILYS COLLIER ND S Access ion #: [id number] Sex: F : 1954 1 Locati on: RAD Attend ing Physic liz: NIKOLAY TAM Orderi ng Physic liz: NIKOLAY TAM Exam Date: 2021 1:29 PM Exam Name: US NECK HEAD SOFT TISSUE Admitt ing Diagno sis(es ): RADIOL OGY REPORT - FINAL EXAM: US NECK HEAD SOFT TISSUE HISTOR Y: goiter COMPAR TAMELA: None. TECHNI QUE: Ultras ound evalua tion of the thyroi d gland was perfor med. FINDIN GS: Right thyroi d lobe: The right lobe of the thyroi d gland measur es 4.3 x 2 x 1.3 cm. The thyroi d parenc hyma is inhomo genous demons tratin g a 1.1 x 1.0 x 0.9 cm mid comple x nodule appear ing primar nayeli hypere choic with a centra l area of low echoge nicity , taller than wide. There is also a 0.36 x 0.32 x 0.39 superi or isoech oic slight ly comple x nodule .. No increa sed dopple r blood flow or suspic ious calcif icatio ns. Page 1 of 2 [facility] Grey ayaka Name: AMARILYS COLLIER ND S Access ion #: [id number] Sex: F : 1954 1 Exam Date: 2021 1:29 PM Exam Name: US NECK HEAD SOFT TISSUE Admitt ing Diagno sis(es ): Left thyroi d lobe: The left lobe of the thyroi d gland measur es 3.7 x 1.6 x 1.4 cm. The thyroi d parenc hyma is homoge neous withou t solid nodule s or cystic lesion s. No abnorm al color Dopple r blood flow or suspic ious calcif icatio ns. Isthmu s: The thyroi d isthmu s measur es 0.55 mm in width. The thyroi d parenc hyma is homoge neous withou t solid nodule s or cystic lesion s. No abnorm al color Dopple r blood flow or suspic ious calcif icatio ns. IMPRES EDSON: Ti-Rad s 4: Modera tely suspic ious, (1.1 cm right thyroi d hypere choic taller than wide nodule ). The ACR recomm ends biopsy of these nodule s if they are greate r than 1.5 cm, otherw ise follow with ultras ound on an annual basis. Recomm end 1 year ultras ound follow -up. Create d and electr onical ly signed by: Zen dill MD Signed Date: 2021 7:14 AM (CT) Dictat ed by: Zen dill MD DD: 2021 7:14 AM (CT) DT: 2021 7:14 AM (CT) Page 2 of 2 [id number] [facility] (Imaging) [address] [place], [address], 01/23/2023 06:02:55 10/10/20 22 10/09/2022 US, thyro id No observ ation record ed. [id number] [facility] Add On Lab Orders [address] [place], [address], 01/23/2023 06:02:55 Result Notes None recorded. Problems Name Problem SNOMED Code Status Onset Date Resolution Date Notes Provider Name and Address Organization Details Recorded Time Chronic obstructive pulmonary disease 15851565 Active Not Available [facility] 3 05:57:27 Asthma 346828262 Active Not Available [facility] 3 05:57:27 Dyspnea 247234246 Active Not Available 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 Procedures Surgical History Date Name Laterality Status Provider Name and Address Organization Details Recorded Time Cholecystectomy completed Not Available [facility] 01/23/2023 05:52:57 Breast Surgery completed Not Available [facility] 01/23/2023 05:52:57 operation on urinary bladder completed Not Available [facility] 01/23/2023 05:52:57 Imaging Results Imaging Date Name Status LastModified by Organiz ation Details LastModified Time 10/09/2022 US, head + neck, soft tissue completed [id number] [facility] (Imaging) [address] [place], [address], 01/23/2023 06:02:55 10/09/2022 US, thyroid completed [id number] [facility] Add On Lab Orders [address] [place], [address], 01/23/2023 06:02:55 Procedure Notes None recorded. Medical Equipment None Reported. Allergies Allergen ID Allergen Name Allergen Category Reaction Reaction Severity Criticality Documentation Date Start Date Code Code System Note Provider Name and Address Organization Details Recorded Time 24642 Iodinated contrast media (substanc e) medicatio n rash Not available Not available 01/23/2023 73601 2004 SNOMED Not Available [facility] 3 06:02:46 45403 aspirin medicatio n nausea Not available Not available 01/23/2023 1191 RxNorm Not Available [facility] 3 06:02:46 Medications Name Sig Start Date Stop Date Status Note LastModified by Organization Details LastModified Time relion insulin syringe/u-1 00/1ml/31 g x 04/09 31g x 04/09 1 ml misc active Not Available Not Available Not Available albuterol sulfate 1.25 mg/3 mL solution for nebulizatio n USE 1 VIAL IN NEBULIZER EVERY 4 TO 6 HOURS NEEDED FOR SHORTNESS OF BREATH OR WHEEZING active Not Available Not Available No t Available prochlorper azine maleate 5 mg tablet TAKE 1 TABLET BY MOUTH EVERY 8 HOURS NEEDED FOR NAUSEA AND VOMITING DO NOT TAKE ZOFRAN WHILE TAKING THIS MEDICATIO N active Not Available Not Available No t Available ondansetron HCl 4 mg tablet 10/04 completed Not Available Not Available Not Available prednisone 20 mg tablet TAKE 2 TABLETS BY MOUTH ONCE DAILY 10/04 completed Not Available Not Available Not Available alendronate 70 mg tablet active Not Available Not Available Not Available prednisone 5 mg tablet active Not Available Not Available Not Available alprazolam 0.5 mg tablet TAKE 1/2 TABLET BY MOUTH TWICE DAILY NEEDED FOR ANXIETY active Not Available Not Available No t Available alprazolam 0.25 mg tablet TAKE 1 TO 2 TABLETS BY MOUTH TWICE DAILY NEEDED FOR ANXIETY active Not Available Not Available No t Available prednisone 1 mg tablet active Not Available Not Available Not Available dexamethaso ne 1 mg tablet TAKE 1 TABLET BY MOUTH AT 10PM THE NIGHT BEFORE 8AM CORTISOL active Not Available Not Available No t Available doxycycline monohydrate 100 mg capsule TAKE 1 CAPSULE BY MOUTH TWICE DAILY active Not Available Not Available No t Available cyanocobala min (vit B-12) 1,000 mcg/mL injection solution INJECT 1 ML ONCE A WEEK IN THE MORNING active Not Available Not Available No t Available esomeprazol e magnesium 40 mg capsule,del ayed release active Not Available Not Available Not Available insulin syringe U-100 with needle 1 mL 31 gauge x 04/09 USE TO INJECT B12 SUBCUTANE OUSLY ONCE WEEKLY active Not Available Not Available No t Available montelukast 10 mg tablet TAKE 1 TABLET BY MOUTH ONCE DAILY active Not Available Not Available No t Available mirtazapine 15 mg tablet TAKE 1 TABLET BY MOUTH EVERY DAY AT BEDTIME active Not Available Not Available No t Available albuterol sulfate HFA 90 mcg/actuati on aerosol inhaler INHALE 2 PUFFS BY MOUTH EVERY 4 HOURS NEEDED FOR SHORTNESS OF BREATH FOR WHEEZING active Not Available Not Available No t Available ipratropium bromide 42 mcg (0.06 %) nasal spray USE 2 SPRAY(S) IN EACH NOSTRIL 4 TIMES DAILY active Not Available Not Available No t Available oxybutynin chloride 5 mg tablet active Not Available Not Available No t Available sertraline 50 mg tablet TAKE 1 TABLET BY MOUTH ONCE DAILY active Not Available Not Available No t Available Spiriva with HandiHaler 18 mcg and inhalation capsules Inhale 1 capsule every day by inhalatio n route. active Not Available Not Available No t Available Claritin as needed 2013 active Not Available Not Available Not Avai lable Tylenol PM 2 tablets hs 2013 active Not Available Not Available Not Avai lable Symbicort 160 mcg-4.5 mcg/actuati on HFA aerosol inhaler Inhale 2 puffs twice a day by inhalatio n route. active Not Available Not Available No t Available BinaxNOW COVID-19 Ag Self Test kit USE DIRECTED active Not Available Not Available No t Available Paxlovid 300 mg (150 mg x 2)-100 mg tablets in a dose pack TAKE TWO 150MG TABLETS OF NIRMATREL VIR WITH ONE 100MG TABLET OF RITONAVIR TWICE DAILY FOR 5 DAYS active Not Available Not Available No t Available Vitals Date Recorded Body mass index (BMI) Body height Oxygen saturation Oxygen saturation in Arterial blood by Pulse oximetry Heart rate Body temperature Body weight Systolic blood pressure Diastolic blood pressure Provider Name and Address Organization Details Last Updated DateTime 2 17.6 kg/m2 154.94 cm 92 % 92 % 91 /min 98.1 [degF] 37633.8 1 g 110 mm[Hg] 70 mm[Hg] Not Available [facility] 3 05:56:21 Date Recorded Body mass index (BMI) Body height Oxygen saturation Oxygen saturation in Arterial blood by Pulse oximetry Heart rate Body temperature Body weight Systolic blood pressure Diastolic blood pressure Provider Name and Address Organization Details Last Updated DateTime 2 17.8 kg/m2 154.94 cm 87 % 87 % 91 /min 97.6 [degF] 24531.1 2 g 130 mm[Hg] 90 mm[Hg] Not Available [facility] 05:[facility]:21 Date Recorded Body height Body mass index (BMI) Body weight Heart rate Body temperature Systolic blood pressure Diastolic blood pressure Provider Name and Address Organization Details Last Updated DateTime 3 154.94 cm 18.3 kg/m2 93962.4 6 g 85 /min 97.2 [degF] 135 mm[Hg] 85 mm[Hg] Paige Long MA [place] - [facility] 3 16:10:27 Social History Question Answer Notes LastModified by [employer] Details LastModified Time Tobacco Smoking Status Former Smoker Not Available [facility] 01/23/2023 05:52:50 What Is Your Level Of Alcohol Consumption? None [id number] Information not available 01/23/2023 What Is Your Level Of Caffeine Consumption? Moderate 1-2 Cups Daily [id number] Information not available 01/23/2023 What Type Of Diet Are You Following? REGULAR [id number] Information not available 01/23/2023 When Did You Quit Smoking? 6-10yearssi ncelastciga rette Quit In 2013 [id number] Information not available 01/23/2023 What Is Your Relationship Status? Single [id number] Information not available 01/23/2023 How Much Tobacco Do You Smoke? No [id number] Information not available 01/23/2023 Do You Use Any Illicit Or Recreational Drugs? Yes [facility] [id number] Information not available 01/23/2023 How Many Years Have You Smoked Tobacco? 45 [id number] Information not available 01/23/2023 Do You Have Any Dietary Restrictions? No Can Not Have Grapefruit Due To Certain Medications Pt Is Taking [id number].[id number] Information not available 01/23/2023 Sex: Female Functional Status Question Answer Note LastModified by [employer] Details LastModified Time What is your exercise level? None [id number] Information not available 01/23/2023 Mental Status None recorded. Family History Nothing Reported Notes:Father: family hx of c ardiovascular disease, acute myocardial infarction, hypertension, family hx of T2DM Mother: Hypertension, family hx of thyroid disease, family hx of multiple sclerosis Sibling: mesothelioma Other: DM, heart disease, neuropathy, skin cancer Medical History Condition Response ARTHRITIS Y DIABETES, TYPE N LUNG DISEASE/DISORDER Y HYPERTHYROIDISM Y EYE PROBLEMS DEPRESSION (INCLUDING POST ) HEADACHES/MIGRAINES Y DIZZINESS Y ANEMIA/BLOOD DISORDER Y OSTEOPOROSIS Y Gynecological HistoryNo gynecological history recorded. Obstetrics History GPAL:G 0 P 0 0 0 0 Immunizations Vaccine Type Date Status Note Provider Nam e and Address Organization Details Recorded Time Influenza, split virus, quadrivalent, preservative 3 completed Not Available [facility] 01/23/2023 06:02:41 pneumococcal, unspecified formulation 2 completed Not Available [facility] 01/23/2023 06:02:41 Past Encounters Encounter ID Performer Location Encounter Start Date Encounter Closed Date Diagnosis/Indication Diagnosis SNOMED-CT Code Diagnosis ICD10 Code Diagnosis Note [id number] [facility] [address] [place] [address] 10/04/2022 00:00:00 10/04/2022 13:51:25 [id number] [facility] [address] [place] [address] 11/06/2022 00:00:00 11/06/2022 16:37:04 [id number] Nikolay Tam MD [facility] [address] [place] [address] 08/08/2023 15:54:28 08/08/2023 16:41:26 Postmenopausal osteoporosis 781444891 M81.0 Continue alendronat e for now- but patient aware she will need a transition to another treatment early next year as she has utilized bisphospho chung therapy for close to 5 years if not a little over. Her parathyroi d function is normal, thyroid function is normal and her dexa suppressio n testing was normal. Continue on alendronat e for now and recommend she continue calcium 1200 mg daily along with vitamin D 3 800 IU daily for bone health. Jewels thyroiditis 21 [id number] E06.3 TSH and FT4 in range. Recommende d a thyroid supplement similiar to actalin by Dr. Linden Lyon that contains, iodine, magnesium, manganese, carnitine and other elements to help maintain endogenous thyroid function and help to reduce swelling to take in meantime to help reduce time frame to burn out and to help with fatigue, hair thinning etc. Spent up to 25 minutes preparing to see the patient (eg, review of tests), obtaining and/or reviewing separately obtained history, performing a medically appropriat e examinatio n and evaluation , counseling and educating the patient, ordering medication s, tests, along with documentin g clinical informatio n in the electronic health record, independen tly interpreti ng results and communicat ing results to the patient. Patient can be followed by PCP - she/he is aware of my resignatio n and last day of September 06. If needed his/her PCP can refer patient to another endocrinol ogist in the area. All questions /concerns answered and refills necessary at visit today. Health Concerns Section Related Observation LastModified by Organization Detai ls LastModified Time None Recorded Concern Status LastModified by Organization Details LastModified Time None Recorded Advance Directives Directive None Recorded Payers Encounter Date Sequence Insurance Name Policy Number Policy Christianson Covered Member ID Christianson Member ID Guarantor Name 08/08/[address] [facility] (MEDICARE REPLACEMENT/A DVANTAGE - HMO) [id number] [facility] [id number] [facility] 08/08/2023 2 MEDICAID-[place]: [facility] [id number] [facility] Notes Date Note Type Note Provider Name and Address Organization Details Recorded Time 08/08/2023 text/html 68 yo female com es in for follow up in management of hashimotos thyroiditis, B12 def and postmenopausal osteoporosis. last seen in Oct we continued thyroid support along with B12 injections. we continued alendronate for osteoporosis. She has since stopped taking B12 injections and she does eat foods high in B12 content so levels are elevated. She has gained 5 pounds and maintained. She has no recent falls or fractures.She has no kidney stones. She completed her bone density at [facility] last winter. labs from 08/05/23:cortisol 0.9 ug/dL TFT normalvit D normalPTH normalcalcium normal Nikolay Tam MD [address] [facility] [address], [place], [address], [place] - [facility] 08/08/2023 16:32:34 OBGyn Episode No OBEpisode recorded.
--- OUTSIDE RECORDS SUMMARY | 2025-02-17 13:41 | XMS_ITS | Data Portability ---
Author Organization [facility] Address [address] [place] [address] Care Team Providers Care Casino Attendant Name Role Phone KASH CHEW Tick Eradicator Unavailable Assessment No assessment recorded. Plan of Treatment Reminders Order Date Submit Date Provider Last Modified By Organization Details Last Modified Time Details Appointments None recorded. Lab unlisted lab - igp,aptim a HPV,age gdln 2019 020 FRENCH [facility], [address], [address], [place], [address], 0 16:09:39 urinalysi s, dipstick 2019 020 [email or web address] 1 In-Office Order, Internal Use Only DO Not Attach Compendium DO Not Attach Compendium, Do Not Delete/merge, [id number] 0 16:33:01 pap, IG + HPV, cervical 2014 015 LEET[facility]IA [facility], [address] [facility], [address], [place], [address], 5 16:33:33 Referral None recorded. Procedures None recorded. Surgeries None recorded. Imaging MAMMO, screening , bilateral 2016 017 [facility] (Mammography) , [address], [place], [address], 7 13:03:24 mammogram , screening [address] (Imaging), [address] [facility] [address], [place], [address], 5 09:16:08 bone density, hip and spine [address] (Imaging), [address] [facility] [address], [place], [address], 5 09:23:09 Medication Orders Bactrim DS 800 mg-160 mg tablet 2019 020 [facility], [address] [place], [address], 0 18:28:34 alendrona te 70 mg tablet 2016 017 [facility], [address] [place], [address], 7 12:20:10 calcium 600 mg (as carbonate )-vitamin D3 20 mcg (800 unit) tablet 2016 017 [facility], [address] [place], [address], 7 12:20:10 multivita min tablet 2016 017 [facility], [address] [place], [address], 7 12:20:11 calcium 600 mg (as carbonate )-vitamin D3 20 mcg (800 unit) tablet 2014 015 [facility], [address] [place], [address], 5 16:40:35 alendrona te 70 mg tablet 2014 015 [facility], [address] [place], [address], 5 16:40:35 multivita min tablet 2014 015 [facility], [address] [facility], [place], [address], 5 16:40:35 alendrona te 70 mg tablet 2014 015 alice Not available 5 16:40:35 Patient TargetsNo targets recorded. Patient Instructions Encounter Date Encounter Id Patient Instructions Last Modified By Organization Details Last Modified Time 09/12/2015 [id number] learning about breast cancer screening alice Not available 09/12/2015 11:54:56 12/18/2016 [id number] osteoporosis: care instructions [email or web address] Not available 12/18/2016 12:24:33 mammogram: about this test alice Not available 12/18/2016 13:03:24 01/06/2020 [id number] skin abscess: care instructions Not available 01/06/2020 18:25:47 osteoporosis: care instructions Not available 01/06/2020 18:25:29 well visit, women 50 to 65: care instructions Not available 01/06/2020 12:15:42 Reason for Referral None Reported. Results Created Date Observation Date Name Description Value Unit Range Abnormal Flag Note LastModifiedBy Organization Detail LastModifiedTime 01/06/2001/06/2020 urina lysis , dipst ick Leukocytes Trace Not Available In-Offi ce Order Internal Use Only DO Not Attach Compendium DO Not Attach Compendium, Do Not Delete/merge, [id number] 01/06/2020 12:48:32 01/06/20 20 01/06/2020 urina lysis , dipst ick Nitrite negati ve Not Available In-Office Order Internal Use Only DO Not Attach Compendium DO Not Attach Compendium, Do Not Delete/merge, [id number] 01/06/2020 12:48:32 01/06/2001/06/2020 urina lysis , dipst ick Urobilinogen .2 Not Available In-Of fice Order Internal Use Only DO Not Attach Compendium DO Not Attach Compendium, Do Not Delete/merge, [id number] 01/06/2020 12:48:32 01/06/20 20 01/06/2020 urina lysis , dipst ick Protein Negati ve Not Available In-Office Order Internal Use Only DO Not Attach Compendium DO Not Attach Compendium, Do Not Delete/merge, 01/06/2020 12:48:32 01/06/20 20 01/06/2020 urina lysis , dipst ick pH 6.0 Not Available In-Office Order Internal Use Only DO Not Attach Compendium DO Not Attach Compendium, Do Not Delete/merge, 01/06/2020 12:48:32 01/06/20 20 01/06/2020 urina lysis , dipst ick Blood Negati ve Not Available In-Office Order Internal Use Only DO Not Attach Compendium DO Not Attach Compendium, Do Not Delete/merge, 01/06/2020 12:48:32 01/06/20 20 01/06/2020 urina lysis , dipst ick Specific [place] 1.020 Not Available In-Off ice Order Internal Use Only DO Not Attach Compendium DO Not Attach Compendium, Do Not Delete/merge, 01/06/2020 12:48:32 01/06/20 20 01/06/2020 urina lysis , dipst ick Ketone Negati ve Not Available In-Office Order Internal Use Only DO Not Attach Compendium DO Not Attach Compendium, Do Not Delete/merge, 01/06/2020 12:48:32 01/06/20 20 01/06/2020 urina lysis , dipst ick Bilirubin Negati ve Not Available In-Office Order Internal Use Only DO Not Attach Compendium DO Not Attach Compendium, Do Not Delete/merge, 01/06/2020 12:48:32 01/06/20 20 01/06/2020 urina lysis , dipst ick Glucose Negati ve Not Available In-Office Order Internal Use Only DO Not Attach Compendium DO Not Attach Compendium, Do Not Delete/merge, 01/06/2020 12:48:32 09/12/20 15 09/14/2015 pap, IG + HPV, cervi lisette diagnosis: COMMEN T NEGAT NEMO FOR INTRA EPITH ELIAL LESIO N AND CHAR PATTON . Not Available [facility] ([facility]) [address], [place], [address], 09/16/2015 16:33:33 09/12/20 15 09/14/2015 pap, IG + HPV, cervi lisette specimen adequacy: ADRIÁN Marley SATIS FACTO RY FOR EVALU ATION . ENDOC ERVIC AL AND/O R SQUAM OUS METAP LASTI C CELLS (ENDO CERVI LISETTE COMPO NENT) ARE PRESE NT. PARTI ALLY OBSCU RING THICK AREAS ARE PRESE NT. Not Available [facility] ([facility]) [address] [place], [address], 09/16/2015 16:33:33 09/12/20 15 09/14/2015 pap, IG + HPV, cervi lisette performed by: ADRIÁN ESCOBAR, CARMEN Marley (ASCP ) Not Available [facility] ([facility]) [address] [place], [address], 09/16/2015 16:33:33 09/12/20 15 09/14/2015 pap, IG + HPV, cervi lisette . . Not Available [facility] ([facility]) [address] [facility], [place], [address], 09/16/2015 16:33:33 09/12/20 15 09/14/2015 pap, IG + HPV, cervi lisette note: ADRIÁN Marley THE PAP SMEAR IS A SCREE KARY TEST DESIG CHAR TO AID IN THE DETEC TION OF TIMMY LIGNA NT AND MALIG NANT CONDI TIONS OF THE UTERI NE CERVI X. IT IS NOT A DIAGN OSTIC PROCE DURE AND SHOUL D NOT BE USED THE SOLE MEANS OF DETEC TING CERVI LISETTE CANCE R. BOTH FALSE -POSI TIVE AND FALSE -NEGA TIVE REPOR TS DO OCCUR . Not Available [facility] ([facility]) [address] [facility], [place], [address], 09/16/2015 16:33:33 09/12/20 15 09/14/2015 pap, IG + HPV, cervi lisette test methodology: TNP THE THIN PREP( R) IMAGE R WAS UNABL E TO READ THIS SPECI MEN. THERE FORE A MANUA L REVIE W WAS PERFO RMED. Not Available [facility] ([facility]) [address] [facility], [place], [address], 09/16/2015 16:33:33 09/12/20 15 09/16/2015 pap, IG + HPV, cervi lisette HPV aptima NEGATI VE negati ve THIS TEST DETEC TS FOURT EEN HIGH- RISK HPV TYPES (16/1 8/31/ 33/35 /39/4 5/ 51/52 /56/5 8/59/ 66/68 ) WITHO UT DIFFE RENTI ATION . Not Available [facility] ([facility]) [address] [facility], [place], [address], 09/16/2015 16:33:33 01/06/20 20 01/06/2020 pap, IG + refle x HPV age gdln acog testing 30-65 Not Available [facility] ([facility]) [address] [facility], [place], [address], 01/11/2020 16:09:39 01/06/20 20 01/08/2020 pap, IG + refle x HPV HPV aptima Negati ve negati ve This nucle ic acid ampli ficat ion test detec ts fourt een high- risk HPV types (16,1 8,31, 33,35 ,39,4 5,51, 52,56 ,58,5 9,66, 68) witho ut diffe renti ation . Not Available [facility] ([facility]) [address] [place], [address], 01/11/2020 16:09:39 01/06/20 20 01/11/2020 pap, IG + refle x HPV diagnosis: Commen t NEGAT NEMO FOR INTRA EPITH ELIAL LESIO N OR MALIG POOJA . CELLU LAR ALMONTE ES ASSOC IATED WITH ATROP HY ARE PRESE NT. THIS SPECI MEN WAS RESCR EENED PART OF OUR QUALI TY CONTR OL PROGR AM. Not Available [facility] ([facility]) [address] [facility], [place], [address], 01/11/2020 16:09:39 01/06/20 20 01/11/2020 pap, IG + refle x HPV specimen adequacy: Adrián marley Satis facto ry for evalu ation . Endoc ervic al and/o r squam ous metap lasti c cells (endo cervi lisette compo nent) are prese nt. Not Available [facility] ([facility]) [address] [facility], [place], [address], 01/11/2020 16:09:39 01/06/20 20 01/11/2020 pap, IG + refle x HPV clinician provided ICD10: Adrián malrey Z01.4 19 Z11.5 1 Z12.4 Not Available [facility] ([facility]) [address] [place], [address], 01/11/2020 16:09:39 01/06/20 20 01/11/2020 pap, IG + refle x HPV performed by: Adrián rodriguez, Cytot echno logis t (ASCP ) Not Available [facility] ([facility]) [address] [place], [address], 01/11/2020 16:09:39 01/06/20 20 01/11/2020 pap, IG + refle x HPV QC reviewed by: Adrián barbour, Cytot echno logis t (ASCP ) Not Available [facility] ([facility]) [address] [place], [address], 01/11/2020 16:09:39 01/06/20 20 01/11/2020 pap, IG + refle x HPV . . Not Available [facility] ([facility]) [address] [place], [address], 01/11/2020 16:09:39 01/06/20 20 01/11/2020 pap, IG + refle x HPV note: Commen t The Pap smear is a scree kary test desig char to aid in the detec tion of timmy ligna nt and malig nant condi tions of the uteri ne cervi x. It is not a diagn ostic proce dure and shoul d not be used as the sole means of detec ting cervi lisette cance r. Both false -posi tive and false -nega tive repor ts do occur . Not Available [facility] ([facility]) [address] [facility], [place], [address], 01/11/2020 16:09:39 01/06/20 20 01/11/2020 pap, IG + refle x HPV test methodology: Adrián t This liqui d based ThinP rep(R ) pap test was scree char with the use of an image guide marci martini Not Available [facility] ([facility]) [address] [facility], [place], [address], 01/11/2020 16:09:39 10/04/20 15 10/04/2015 dexa PT NAME: NANDO ZAIDA MONSON : 1954 PT SEX/AG E: F/60 PT ACCT NUMBER : [id number] PT MR#: [id number] ROOM/B ED: PT STATUS : REG CLI DATE OF EXAMIN ATION: ORDERTyshawn BLAKE PHYSIC FREDY: KASH SHERMAN MHima ATTEND [facility] PHYSIC FREDY: KASH SHERMAN , MHima DICTAT [facility] PHYSIC FREDY: Colin PATTERSON M.D. 062 DIGITA L MAMM SCREEN -KHURRAM INDICA TION: Screen ing TECHNI QUE: Digita l MLO and CC views. Rotate d latera l CC views. Comput er aided detect ion was perfor med and review ed. COMPAR EKTA: [facility]/28[facility] Digita l screen ing mammog marcia DENSIT Y: There is extrem issac dense breast tissue , which lowers the sensit ivity of mammog tylor. FINDIN GS: Some microc alcifi cation s are noted deep in the mid left breast on MLO view. Recomm end magnif icatio n views. Otherw ise no domina nt mass lesion , franko ectura l distor tion, malign ant calcif icatio n, skin thicke kary or retrac tion or signif icant new or develo ping densit ies since 04/28/13 is detect ed. IMPRES SIONS: BIRADS Catego ry 0: Incomp lete; need additi onal imagin g evalua tion RECOMM ENDATI ONS: Diagno stic left mammog marcia Review ed, dictat ed and finali zed at [facility]. __ Electr onical ly signed by: ANTELMO PATTERSON Date: Time: 15:52 ANTELMO PATTERSON M.D.__ ___ [facility] [address] [place] [address] [facility] (Imaging) [address], [place], [address], 11/02/2015 04:08:52 10/05/20 15 10/04/2015 dexa PT NAME: NANDO MONSONZAIDA Barrow : 1954 PT SEX/AG E: F/60 PT ACCT NUMBER : [id number] PT MR#: [id number] ROOM/B ED: PT STATUS : REG CLI DATE OF EXAMIN ATION: ORDERI NG PHYSIC FREDY: KASH FARR MAN M.Divina ATTEND ING PHYSIC FREDY: KASH FARR MAN , M.Marci. DICTAT ING PHYSIC FREDY: Colin PATTERSON M.D. 063 ====== ====== ====== ====== ====== ====== ====== ====== ====== ====== ===== Bone Densit y Report ====== ====== ====== ====== ====== ====== ====== ====== ====== ====== ===== Name: NANDO MONSON AMARILYS Granger t ID: [id number] Age: 60 Sex: Female Ethnic ity: White Date of : 1954 ------ ------ ------ ------ ------ ------ ------ ------ ------ ------ ----- Indica tion: samire geovani al; height loss; asthma or emphys dayton; Referr apolinar Spear er: YORDAN MEYER KASH Study: Bone densit ometry was formerly [facility]. Exam Date: 2014 Access ion number : [id number] 2.001A [place] Bone Densit y: ------ ------ ------ ------ ------ ------ ------ ------ ------ ------ ----- Region BMD T-scor e Z-scor e Classi ficati on ------ ------ ------ ------ ------ ------ ------ ------ ------ ------ ----- AP Spine (L1-L4 ) 0.614 -3.9 -2.5 Osteop orosis Femora l Neck (Left) 0.501 -3.1 -1.8 Osteop orosis Total Hip (Left) 0.583 -2.9 -2.0 Osteop orosis Total Hip Bilate ral Avg 0.581 -3.0 -2.0 Osteop orosis Femora l Neck (Right ) 0.528 -2.9 -1.6 Osteop orosis Total Hip (Right ) 0.577 -3.0 -2.0 Osteop orosis ------ ------ ------ ------ ------ ------ ------ ------ ------ ------ ----- World Health Organi zation criter ia for BMD impres kenyetta classi dru granger ts as: Normal (T-sco re at or above -1.0), Osteop enia (T-sco re betwee n -1.0 and -2.5), or Osteop orosis (T-sco re at or below -2.5). 10-brent r Fractu re Risk: ------ ------ ------ ------ ------ ------ ------ ------ ------ ------ ----- FRAX not report ed becaus e: Some T-scor e for Spine Total or Hip Total or Femora l Neck at or below -2.5 ------ ------ ------ ------ ------ ------ ------ ------ ------ ------ ----- [facility] Provid ed by Grey marley: ------ ------ ------ ------ ------ ------ ------ ------ ------ ------ ----- Has the follow ing medica l condit ions: Asthma or Emphys dayton Grey newton height was 61.5 Menopa use Age: 45 No regula r weight bearin g exerci se Drinks caffei nated beverthania ges Onset of menses at age 12 Number of childr en 2 ------ ------ ------ ------ ------ ------ ------ ------ ------ ------ ----- Impres kenyetta: The grey marley has osteop orosis , based on the Total Spine T-scor e. Discus kenyetta: HIGH RISK OF FRACTU RE. BONE DENSIT Y IS UNDESI RABLY LOW AT ONE OR MORE SKELET AL SITES, CONSIS TENT WITH OSTEOP OROSIS . ALSO, BONE DENSIT Y IS LOWER THAN EXPECT ED FOR AGE AND SEX AT ONE OR MORE SKELET AL SITES; RECOMM END A DILIGE NT SEARCH FOR SECOND CLIFF CAUSES OF BONE LOSS. This patien t's lowest T-scor e meets the World Health Organi zation 's (WHO) criter ia for osteop orosis at one or more sites (T-sco re -2.5 or below) . In untrea michelle patien ts, the risk of osteop orotic fractu re increa ses approx imatel y two-fo ld for each 1.0 SD decrea se in T-scor e. Low bone densit y is not the only risk factor for fractu re; also consid er factor s such as patien t's age, frailt y or poor health , risk of fallin g, risk of injury , previo us osteop orotic fractu re, family histor y of osteop orosis , cigare tte smokin g, low body weight , etc. Not everyo ne with low bone minera l densit y has osteop orosis ; osteom alacia and other metabo lic bone disord ers should also be consid ered. Patien ts who have osteop orosis should be evalua michelle for specif ic diseas es and condit ions (secon montez causes ) that may cause or contri bute to bone loss. The Americ an Associ ation of Clinic al Endocr inolog ists (AACE) and [facility] al Osteop orosis Founda tion (NOF) recomm end pharma cologi c interv ention for all postme nopaus al women whose T-scor e is in this range. Also, this patien t's bone minera l densit y is below the range consid ered normal for health y age-, sex-, and race-m atched contro ls at least one site (Z-sco re -2.0 or below) . This warran ts carefu l evalua tion for diseas es and condit ions that may contri bute to accele rated bone loss. The patien t should follow a health ful lifest yle (good nutrit ion with adequa te calciu m and vitami n D, and approp riate weight -beari ng exerci se). Follow -Up: Consid er a repeat BMD and Verteb ral Fractu re Assess ment (VFA) exam in 2 years or sooner if medica lly necess cliff, to reasse ss this patien t's status . Review ed, dictat ed [facility] ANTELMO TURPIN M.D.__ ___ < > [facility] [address] [place] [address] [facility] ([facility]) [address], [place], [address], 11/02/2015 04:08:52 10/12/20 15 10/12/2015 dexa PT NAME: ZAIDA COLLIER ND : 1954 PT SEX/AG E: F/60 PT ACCT NUMBER : [id number] PT MR#: [id number] ROOM/B ED: PT STATUS : REG CLI DATE OF EXAMIN ATION: ORDERI PHYSIC FREDY: KASH SHERMAN MHima ATTEND [facility] PHYSIC FREDY: KASH SHERMAN , MCindy. DICTAT [facility] PHYSIC FREDY: MARCUS LAST M.D. 022 EXAMIN ATION: DIGITA L MAMM DIAG-L EFT W/O CAD HISTOR Y: Left breast calcif icatio ns on screen ing mammog marcia TECHNI QUE: Additi onal images of the left breast were perfor med using full field digita l mammog tylor. COMPAR EKTA: , 04/28/13 , 2, FINDIN GS: No calcif icatio ns are identi fied with magnif icatio n views of the casino floorperson ior third of the left breast . Findin gs on recent screen ing mammog marcia were likely due to overla pping fibrog landul ar elepati ts. There is no eviden ce of suspic ious mass, calcif icatio n, or franko ectura l distor tion sugges t malign tahmina. IMPRES KENYETTA: 1. No mammog raphic eviden ce of malign tahmina. Recomm end routin e screen ing mammog tylor in one year. BI-RAD S Catego ry 1: Negati ve __ Review ed, dictat ed, and finali zed at [facility]. __ Electr onical ly signed by: Dr. MARCUS Harman Date: Time: 16:02 MARCUS LAST M.D.__ ___ [facility] [address] [place] [address] [facility] (Imaging) [address], [place], [address], 11/02/2015 04:08:52 10/12/20 15 10/04/2015 dexa PT NAME: ZAIDA COLLIER ND : 1954 PT SEX/AG E: F/60 PT ACCT NUMBER : [id number] PT MR#: [id number] ROOM/B ED: PT STATUS : REG CLI DATE OF EXAMIN ATION: ORDERI PHYSIC FREDY: KASH FARR MAN M.DYnes ATTEND ING PHYSIC FREDY: KASH FARR MAN , M.D. DICTAT ING PHYSIC FREDY: Colin PATTERSON M.D. 062 DIGITA L MAMM SCREEN -KHURRAM INDICA TION: Screen ing TECHNI QUE: Digita l MLO and CC views. Rotate d latera l CC views. Comput er aided detect ion was perfor med and review ed. COMPAR EKTA: 04/28/13 [facility] Digita l screen ing mammog marcia DENSIT Y: There is extrem issac dense breast tissue , which lowers the sensit ivity of mammog tylor. FINDIN GS: Some microc alcifi cation s are noted deep in the mid left breast on MLO view. Recomm end magnif icatio n views. Otherw ise no domina nt mass lesion , franko ectura l distor tion, malign ant calcif icatio n, skin thicke kary or retrac tion or signif icant new or develo ping densit ies since 04/28/13 is detect ed. IMPRES SIONS: BIRADS Catego ry 0: Incomp lete; need additi onal imagin g evalua tion RECOMM ENDATI ONS: Diagno stic left mammog marcia Review ed, dictat ed and finali zed at [facility]. __ Electr onical ly signed by: ANTELMO PATTERSON Date: Time: 15:52 ANTELMO PATTERSON M.D.__ ___ [facility] [address] [place] [address] [facility] ([facility]) [address], [place], [address], 11/02/2015 04:08:52 10/13/20 15 10/12/2015 imagi ng/di agnos tic resul t No observ ation record ed. [facility] Not Available 2014 09:32:21 10/17/20 15 10/17/2015 imagi ng/di agnos tic resul t No observ ation record ed. [facility] Not Available 2014 14:49:31 10/18/20 15 10/18/2015 imagi ng/di agnos tic resul t No observ ation record ed. Not Available 10/18 15:53:24 10/16/20 16 10/16/2016 dexa PT NAME: ZAIDA COLLIER ND : 1954 PT SEX/AG E: F/61 PT ACCT NUMBER : [id number] PT MR#: [id number] ROOM/B ED: PT STATUS : REG CLI DATE OF EXAMIN ATION: ORDERI PHYSIC FREDY: KASH FARR MAN MHima ATTEND [facility] PHYSIC FREDY: KASH FARR MAN , MHima DICTAT [facility] PHYSIC FREDY: Colin AMBRIZ M.D. 013 [id number] 5.001A CO 10:20: 00 41.007 2M[facility] ([facility]) : DIGITA L MAMM SCREEN -KHURRAM INDICA TION: Screen ing. TECHNI QUE: Screen ing digita l mammog marcia submit michelle. CAD analys is submit michelle and interp reted. COMPAR EKTA: Compar ekta to multip le prior studie s. The oldest study review ed is 013. FINDIN GS: There has been no signif icant change when compar ekta was made to prior films. The breast s are extrem issac dense, which lowers the sensit ivity of mammog tylor. No mammog raphic eviden ce for malign tahmina in either breast . Regula r clinic al breast examin ation in annual mammog tylor are recomm ended. IMPRES KENYETTA: 1: NO MAMMOG RAPHIC EVIDEN CE OF MALIGN TAHMINA IN EITHER BREAST AND NO CHANGE . RECOMM ENDATI ON: Routin e yearly screen ing mammog marcia and regula r clinic al breast examin ation are recomm ended. BI-RAD S CATEGO RY 1 - NEGATI VE __ Review ed, dictat ed and finali zed at [facility]. __ Electr onical ly signed by: CITLALY AMBRIZ Date: Time: 10:59 CITLALY AMBRIZ M.D.__ ___ [facility] [address] [place] [address] [phone] [facility] (Imaging) [address] [facility] [address], [place], [address], 10/20/2016 11:12:35 10/16/20 16 10/16/2016 MAMMO , scree kary, bilat eral No observ ation record ed. [facility] Not Available 10/17 18:11:28 10/24/20 16 10/16/2016 MAMMO , scree kary, bilat eral No observ ation record ed. [facility] (Imaging) [facility] [address], [place], [address], 10/24/2016 18:35:15 11/27/19 23 11/24/2022 MAMMO , scree kary, bilat eral No observ ation record ed. [email or web address] [id number] [facility] [address] [facility], [place], [address], 11/28/2022 09:36:00 12/06/19 23 11/24/2022 DEXA, axial skele ton No observ ation [place] ed. [email or web address] [id number] Not Available 07:00:00 Result Notes None recorded. Problems Name Problem SNOMED Code Status Onset Date Resolution Date Notes Provider Name and Address Organization Details Recorded Time Chronic obstructive pulmonary disease 75786450 Active 2019 STALIN COOPER Attn: Kristina lozano,[address] [place], [address], [facility] 0 12:20:32 Overactive urinary bladder 401026574 Active 2019 STALIN COOPER Attn: Kristina lozano,[address] [place], [address], [facility] - [facility] 0 12:20:43 Mammography abnormal [id number] Completed 12/18/2016 Kash pham, [place] - [facility] 7 12:19:00 Osteoporosi s 60776687 Active Kash pham, [place] - [facility] 5 15:19:51 Problem Notes None recorded. Procedures Surgical History Date Name Laterality Status Provider Name and Address Organization Details Recorded Time 0 Date of Last Pap Smear completed STALIN SKY Attn: Accounting,[address] [facility], [place], [address], [facility] - [facility] 01/06/2020 12:11:19 9 Date of Last Mammogram completed STALIN SKY Attn: Accounting,[address] [facility], [place], [address], [facility] 01/06/2020 12:11:36 9 Most Recent Mammogram completed STALIN SKY Attn: Accounting,[address] [facility], [place], [address], [facility] 01/06/2020 12:11:50 7 Colonoscopy completed Gail Petersen MA [facility] 09/12/2015 11:07:32 7 Myomectomy completed Gail Petersen MA [facility] 09/12/2015 11:10:26 4 Tubal Ligation completed Gail Petersen [facility] [facility] 09/12/2015 11:06:30 Imaging Results Imaging Date Name Status LastModified by [facility] Details LastModified Time 10/04/2015 dexa completed harriet Wright [facility] (Imaging) [address] [facility] [address] [place] [address], [phone], 11/02/2015 04:08:52 10/04/2015 dexa completed build Kyle [facility] (Imaging) [address] [facility] [address] [place] [address], [phone], 11/02/2015 04:08:52 10/12/2015 [facility] [address], [phone], 11/02/2015 04:08:52 10/04/2015 dexa completed [facility] (Imaging) [address], [phone], 11/02/2015 04:08:52 10/12/2015 imaging/diagno stic result completed [facility] Information not available 10/17/2015 09:32:21 10/17/2015 imaging/diagno stic result completed [facility] Information not available 10/24/2015 14:49:31 10/18/2015 imaging/diagno stic result completed [email or web address] Information not available 10/18/2015 15:53:24 10/16/2016 [facility] [address] [place] [address], [phone], 10/20/2016 11:12:35 10/16/2016 MAMMO, screening, bilateral completed [facility] Information not available 10/17/2016 18:11:28 10/16/2016 MAMMO, screening, bilateral completed [facility] [address] [place] [address], [phone], 10/24/2016 18:35:15 11/24/2022 MAMMO, screening, bilateral completed [address], [address], 11/28/2022 09:36:00 11/24/2022 DEXA, axial skeleton completed [email or web address] Information not available 12/11/2022 07:00:00 Procedure Notes None recorded. Medical Equipment None Reported. Allergies Allergen ID Allergen Name Allergen Category Reaction Reaction Severity Criticality Documentation Date Start Date Code Code System Note Provider Name and Address Organization Details Recorded Time 126402 aspirin medicatio n other moderate Not available 01/06/2020 1191 RxNorm stoma ch issue s Not Available Not Available Not Available Medications Name Sig Start Date Stop Date Status Note LastModified by Organization Details LastModified Time multivitam in tablet Take 1 tablet every day by oral route. 2016 active Not Available Not Available Not Avai lable buspirone 5 mg tablet active Not Available Not Available Not Available nystatin 100,000 unit/mL oral suspension 01/06 completed rash on hands and arms, severe itching DG RMA Not Available Not Available Not Available prednisone 10 mg tablet active Not Available Not Available Not Available ondansetro n HCl 4 mg tablet active Not Available Not Available Not Available prednisone 20 mg tablet active Not Available Not Available Not Available alendronat e 70 mg tablet Take 1 tablet( s) every week by oral route. 2017 active Not Available Not Available Not Avai lable prednisone 5 mg tablet 01/06 completed Not Available Not Available Not Available amoxicilli n 875 mg tablet active Not Available Not Available Not Available esomeprazo le magnesium 40 mg capsule,de layed release active Not Available Not Available Not Available prednisone 50 mg tablet 01/06 completed Not Available Not Available Not Available montelukas t 10 mg tablet active Not Available Not Available Not Available levofloxac in 500 mg tablet 01/06 completed Not Available Not Available Not Available oxybutynin chloride 5 mg tablet Take 1 tablet twice a day by oral route. active Not Available Not Available No t Available amoxicilli n 875 mg-potassi um clavulanat e 125 mg tablet 01/06 completed Not Available Not Available Not Available Bactrim DS 800 mg-160 mg tablet Take 1 tablet every 12 hours by oral route for 7 days. 2019 active Not Available Not Available Not Avai lable Spiriva with HandiHaler 18 mcg and inhalation capsules active Not Available Not Available Not Available Boostrix Tdap 2.5 Lf unit-8 mcg-5 Lf/0.5 mL intramuscu lar syringe active Not Available Not Available Not Available prednisone active 7 mg Not Available Not Av ailable Not Available ProAir HFA 90 mcg/actuat ion aerosol inhaler 01/06 completed Not Available Not Available Not Available Symbicort 160 mcg-4.5 mcg/actuat ion HFA aerosol inhaler active Not Available Not Available Not Available calcium 600 mg (as carbonate) -vitamin D3 20 mcg (800 unit) tablet Take 1 tablet twice a day by oral route for 30 days. 2016 active Not Available Not Available Not Avai danilo Lawler 145 mcg capsule active Not Available Not Available Not Available Vitals Date Recorded Body height Body mass index (BMI) Body weight Heart rate Body temperature Oxygen saturation Oxygen saturation in Arterial blood by Pulse oximetry Systolic blood pressure Diastolic blood pressure Systolic blood pressure Diastolic blood pressure Provider Name and Address Organization Details Last Updated DateTime 0 154.94 cm 17 kg/m2 36906.6 g 105 /min 98.3 [degF] 92 % 92 % 84 mm[Hg] 60 mm[Hg] 104 mm[Hg] 64 mm[Hg] Elly Swain MA [facility] 0 11:42:00 Date Recorded Body height Body mass index (BMI) Body weight Systolic blood pressure Diastolic blood pressure Provider Name and Address Organization Details Last Updated DateTime 09/12/2015 154.94 cm 19.1 kg/m2 97492.82 937 g 104 mm[Hg] 72 mm[Hg] Gail Petersen MA [facility] 5 11:16:01 Date Recorded Body height Body weight Body mass index (BMI) Systolic blood pressure Diastolic blood pressure Provider Name and Address Organization Details Last Updated DateTime 12/18/2016 154.94 cm 72842.5 g 17.4 kg/m2 102 mm[Hg] 60 mm[Hg] Gail Petersen MA [facility] 7 11:50:59 Social History Question Answer Notes LastModified by Organizat ion Details LastModified Time Tobacco Smoking Status Former Smoker [facility]ail Petersen [facility] 09/12/2015 11:13:42 Do You Have An Advance Directive? No Information not available 09/12/2015 What Is Your Level Of Alcohol Consumption? None Information not available 09/12/2015 Is Blood Transfusion Acceptable In An Emergency? Yes Information not available 09/12/2015 What Is Your Level Of Caffeine Consumption? Moderate Information not available 09/12/2015 How Much Tobacco Do You Chew? None Information not available 09/12/2015 Are You Currently Employed? No Information not available 09/12/2015 What Type Of Diet Are You Following? REGULAR Information not available 09/12/2015 Which Illicit Or Recreational Drugs Have You Used? None Information not available 09/12/2015 Education 11 Information no t available 09/12/2015 What Is Your Occupation? Disabled Information not available 09/12/2015 Live Alone Or With Others? Alone Information not available 09/12/2015 How Many Children Do You Have? 2 Information not available 09/12/2015 Performs Monthly Self-breast Exam? Yes Information no t available 09/12/2015 What Is Your Relationship Status? Single Information not available 09/12/2015 Seat Belts Used Routinely Yes Information not available 09/12/2015 Are You Sexually Active? No Information not available 09/12/2015 At What Age Did You Start Smoking Tobacco? 15 Information not available 09/12/2015 How Much Tobacco Do You Smoke? 0.5 PPD Information not available 09/12/2015 General Stress Level Low Information not available 09/12/2015 Do You Use Sunscreen Routinely? Yes Information not available 09/12/2015 How Many Years Have You Smoked Tobacco? 40 Information not available 09/12/2015 Sex: Unknown Functional Status Question Answer Note LastModified by Organizat ion Details LastModified Time What is your exercise level? Occasional Information not available 09/12/2015 Mental Status None recorded. Family History Relationship Description Onset Age of this Age Resolved Age Notes LastModified by Organization Details LastModified Time Sister Diabetes mellitus [email or web address] Not available 09/12 11:27:11 Sister Hypertensive disorder [email or web address] Not available 09/12 11:27:11 Medical History Condition Response Heart Problems N Other Y Breast Cancer N Thyroid Problems N Kidney or Bladder Problems N GI Problems N Lung Disease N Depression N Acne N Eating Disorder N Breast Problem N Anemia N Anesthesia Complications N Headaches/Migraines N Anxiety Disorder N Diabetes N Ovarian Cancer N Blood Transfusions N Arthritis N Polyps N Infertility N Acid Reflux (GERD) N Cancer N Stroke N Abuse/Domestic Violence N Asthma N Endometriosis N High Cholesterol N Hepatitis N Heart Disease N Fibromyalgia N Pre-Eclampsia N Hypertension N Osteoporosis N Kidney Disease N Gynecological History Statement/Question Response Abnormal Pap N Date of Last Mammogram 09/25/2019 On BCP's at Conception? N STIs/STDs N HPV Vaccine N Most Recent Mammogram 09/25/2019 Age at Menarche 14 Current Control Method Tubal Ligat ion Age at First Child 20 If Post Menopausal, Age at Menopause 42 Sexually Active? N Menses Monthly No Date of Last Pap Smear 01/06/2020 Sexual Problems? N Desired Control Method None Obstetrics History GPAL:G 3 P 1 1 1 2 Type Value Full Term 1 Spontaneous 1 Premature 1 Living 2 Total 3 Past Encounters Encounter ID Performer Location Encounter Start Date Encounter Closed Date Diagnosis/Indication Diagnosis SNOMED-CT Code Diagnosis ICD10 Code Diagnosis Note [id number] Kash Cancino ([employer]) [address] [place] [phone] 09/12/2015 10:44:14 09/12/2015 12:00:16 Gynecologic examination 07347981 Z01.419 Screening for malignant neoplasm of breast 334701302 Z12.39 Postmenopausal state 764 20962 Z78.0 [id number] Kash Cancino ([employer]) [address] [place] [phone] 12/18/2016 11:23:01 12/21/2016 16:40:29 Screening mammography 59544811 Z12.31 Osteoporosis 28823301 M8 1.0 Gynecologi c examination 91100336 Z01.419 Premature menopause 3737 64126 E28.639 [id number] STALIN SKY ([employer]) [address] [place] [phone] 01/06/2020 11:12:57 01/07/2020 10:21:50 Gynecologic examination 27921602 Z01.419 Z11.51 Z12.4 Screening for malignant neoplasm of breast 784346646 Z12.39 Pt reports mammogram 09/2019 at [facility]. Will obtain records. Abscess of vulva 6009146 1 N76.4 Appears to be healing well. Given h/o associated fevers and small mass palpated, will send empiric antibiotic s. Continue warm compresses as needed. RTC with any worsening of symptoms/s igns of infection. Osteoporosis 97790636 M8 1.0 On bisphospho chung per PCP. Health Concerns Section Related Observation LastModified by Organization Detai ls LastModified Time None Recorded Concern Status LastModified by Organization Details LastModified Time None Recorded Advance Directives Directive N: Payers Encounter Date Sequence Insurance Name Policy Number Policy Christianson Covered Member ID Christianson Member ID Guarantor Name 09/12/2015 1 [facility] PRIOR TO 05/25/2021 (MEDICAID REPLACEMENT - HMO) [facility] [id number] [facility] 12/18/2016 3 [place] Juanis Morinend [id number] [facility] 12/18/2016 2 [place] WHEN MEDICARE OR MEDICARE REPLACEMENT PRIMARY) Juanis Converse [id number] [facility] 01/06/2020 3 [place] Juanis Morinend [id number] [facility] 01/06/2020 2 [place] OR MEDICARE REPLACEMENT PRIMARY) [facility] [id number] [facility] Notes Date Note Type Note Provider Name and Address Organization Details Recorded Time 09/12/2015 text/html difficulty falli ng asleep. has had sleep study done, no EZEQUIEL. uses tylenol PM, has tried melatonin. KOSTA [facility] 09/12/2015 16:41:30 12/18/2016 text/html Annual GYNReport ed bypatient.Menstrua l cycle:menopause since 40's Urinary symptoms:No hematuria; No incontinence Vulva:No genital lesion Vagina:Normal vaginal discharge Breast:No breast pain; No breast lump; No nipple discharge Current Contraception:Tuba l ligation Sexual complaints:No sexual complaints; No pain during intercourse; Normal libido Menopausal Symptoms:No menopausal symptoms; Normal vaginal lubrication Psychological symptoms:No depression; No anxiety; No PMDD Preventive measures:Encourage self breast examination; Encourage regular exercise; Encourage no tobacco use; Mammogram performed within the past year; Needs to schedule mammogram 61y/o [id number] menopausal WF w/hx of SAB here for annual [employer] [facility]OST[facility] Durham 12/18/2016 12:36:20 01/06/2020 text/html Annual GYNReport ed bypatient.Menstrua l cycle:menopause Urinary symptoms:No hematuria;Increase d urinary frequency Vulva:Painful genital lesion Vagina:Normal vaginal discharge Breast:No breast pain; No breast lump; No nipple discharge Current Contraception:Tuba l ligation Menopausal Symptoms:No menopausal symptoms; Normal vaginal lubrication Psychological symptoms:No depression; No anxiety; No PMDD Preventive measures:Encourage self breast examination; Encourage regular exercise; Encourage no tobacco use; Encourage regular mammograms starting age 40; Followed with Q3 year pap smear and high risk HPV typing; Mammogram performed within the past year (Sep 2019 per PCP) 64yo F presents for annual WWE and evaluation of abscess on vulva. Pt states she first noticed a knot on L labia a couple of months ago. The knot increased in size and became very tender. She started putting warm compresses on it and it drained about 1.5-2 weeks ago. She endorses a fever around that time with T max of 101. The drainage and fever have since resolved; however she reports there is a small knot still present. She denies tenderness, drainage, erythema, warmth, n/v. STALIN SKY Attn: Accounting[address] [place], [address], [place] [facility] 01/06/2020 18:29:27 OBGyn Episode Ob Episode Information Episode Created Date Number of Fetuses Patient Bloodtype Patient rh Status Prepregnancy Weight lbs Domestic Partner Domestic Partner Phone Father Name Professional Bondsman Status 09/12/20 15 1 CLOSED Fetus Data First Name Last Name Admitted to NICU Weight (g) Sex Living Outcome Pediatric Complications Fetus ID Race Codes Race Delivery Type 3203.49 35 M Prematur e [id number] Vaginal Javan Calculation Initial Javan Date Initial Exam Date Initial Exam Provider Initial Ultrasound Date Last Menstrual Period Date Ultra Sound Weeks Gestation 0 Eighteen To Twenty Week Javan Update Ultra Sound Date Fundal Height At Umbil Quickening Date Ultra Sound Latest Weeks Gestation Final Javan Confirmed By Final Javan Confirmed Date Final Javan Date Ultra Sound Latest Days Gestation 0 0 Menstrual History Last Menstrual Date Menses Monthly On Bcp Conception Prior Menses Frequency Hcg Plus Date Menarche Onset Age Delivery Information Delivery Date Delivery Type Labor Anesthesia Weeks Gestation Incision Type Labor Labor Length Hrs Delivered By Post Complications Tubal Sterilization Discharge Date Comments 4 None 36 Discharge Information Feeding Method Contraceptive Method Maternal HG B and HCT Levels Ob Episode Information Episode Created Date Number of Fetuses Patient Bloodtype Patient rh Status Prepregnancy Weight lbs Domestic Partner Domestic Partner Phone Father Name Professional Bondsman Status 09/12/20 15 1 CLOSED Fetus Data First Name Last Name Admitted to NICU Weight (g) Sex Living Outcome Pediatric Complications Fetus ID Race Codes Race Delivery Type 3203.49 35 F Full Term [id number] Vaginal Javan Calculation Initial Javan Date Initial Exam Date Initial Exam Provider Initial Ultrasound Date Last Menstrual Period Date Ultra Sound Weeks Gestation 0 Eighteen To Twenty Week Javan Update Ultra Sound Date Fundal Height At Umbil Quickening Date Ultra Sound Latest Weeks Gestation Final Javan Confirmed By Final Javan Confirmed Date Final Javan Date Ultra Sound Latest Days Gestation 0 0 Menstrual History Last Menstrual Date Menses Monthly On Bcp Conception Prior Menses Frequency Hcg Plus Date Menarche Onset Age Delivery Information Delivery Date Delivery Type Labor Anesthesia Weeks Gestation Incision Type Labor Labor Length Hrs Delivered By Post Complications Tubal Sterilization Discharge Date Comments 5 Regional-Sp inal 37 Discharge Information Feeding Method Contraceptive Method Maternal HG B and HCT Levels
--- OUTSIDE RECORDS SUMMARY | 2025-02-17 13:42 | XMS_ITS | Clinical Summary ---
Author Organization [facility] Address [address] [facility] [place] [address] Phone Care Team Providers Care Master Esthetician Name Role Phone Gail Kelley MD Primary Care Provider + Sherly Kearns CAR RETARDER OPERATOR, [employer] Unavailable Allergies Active Allergy Reactions Criticality Noted [...] topic Insurance MEDICARE [place]ICAID [place] Care Teams Master Esthetician Relationship Specialty Start Date End Date Gail Kelley MD [address] [place] [address] PCP - General Family Medicine 09/14/16 Sherly Kearns, CAR RETARDER OPERATOR, [employer] [address] [place] [address] Nurse Practitioner Advanced Practice Nurse 09/17/16
== END 2025-02-17 12:43 | disposition home or self-care (01) ==
LOC: ANHPFT 12:42
PROVIDERS: PCP Internal Medicine; Visit Provider Internal Medicine
DX: R53.83 Other fatigue (principal)
CPT/HCPCS: 36600; 82805; 85018